=== PATIENT | female | born 1960 | race Caucasian/White ===

== ENCOUNTER → 2020-12-28 14:28 | Outpatient (CLI) | payer OTHER, SELFPAY ==
[2020-12-28 11:16] VITALS: BMI 25.1
[2020-12-28 14:30] LABS: Bacteria 0 SEEN /hpf (None Seen); Mucous, Urine 0 SEEN /hpf (<or=2+); Red Blood Cells-Urine 0 SEEN /hpf (0-5); Squamous Epithelial Cells - UA 0 SEEN /hpf (5-10); White Blood Cells 0 SEEN /hpf (0-5)
[2020-12-28 14:37] LABS: Color, Urine Straw (Yellow); Glucose, Dipstick Normal (Normal); Ketone-Dipstick Negative (Negative); Leukocyte Esterase-Dipstick 500 /ul (Negative); Nitrite-Dipstick Negative (Negative); Occult Blood-Urine 25 /ul (Negative); Protein-Dipstick Negative (Negative); Urine Bilirubin Dipstick Negative (Negative); Urine Clarity Clear (Clear); Urine Urobilinogen Normal (Normal)
== END ==
PROVIDERS: Referring Provider Nurse Practitioner Family; Visit Provider Nurse Practitioner Family
DX: N39.0 Urinary tract infection, site not specified (principal)
CPT/HCPCS: 81001; 87086; 87088

== ENCOUNTER → 2021-10-10 | Outpatient (CLI) | payer OTHER, SELFPAY ==
--- NOTE | 2021-10-10 13:35 | BI_ITS ---
MAMMOGRAPHY - BILATERAL SCREENING REASON FOR EXAM: Female, 61 years old. Routine annual screening examination. PERTINENT HISTORY: Non-contributory. TECHNIQUE: Digital bilateral breast reuben (3D mammographic acquisition) in the CC and MLO projections. 2-D mediolateral oblique (MLO) and craniocaudad (CC) views of both breasts were obtained. CAD: Full Field Digital Mammography with Computer Added Detection was performed. COMPARISON: Comparison is made with prior study dated 12/10/2016. FINDINGS: Breast Composition: There are scattered areas of fibroglandular density. There are no dominant masses or suspicious calcifications. Stable mild asymmetry of breast tissue were mild degree of increased fibroglandular tissue is seen in the right retroareolar region. There has been no significant change since the prior study. BI/SCRN MAMM (CAD)W/REUBEN BILAT IMPRESSION: Stable bilateral screening mammogram. Yearly follow-up mammogram recommended. (A) ASSESSMENT CATEGORY: BIRADS Category 2: Benign. A letter regarding these results will be sent to the patient by the facility within 30 days. Approximately 10% of breast cancers are not detected by mammography. A normal mammogram should not delay biopsy of a clinically suspicious abnormality. [id number] Electronically Signed: Parviz Leiva MD at 15:45 EDT ,
== END | disposition home or self-care (01) ==
LOC: OPBI 13:33
PROVIDERS: PCP Registered Nurse; Referring Provider Registered Nurse; Visit Provider Registered Nurse
DX: Z12.31 Encounter for screening mammogram for malignant neoplasm of breast (principal)
CPT/HCPCS: 77063; 77067

== ENCOUNTER → 2023-07-09 | Outpatient (CLI) | payer OTHER, SELFPAY ==
[2023-07-09 10:38] LABS: Erythrocyte Sedimentation Rate 8 mm/hr (0-30)
[2023-07-12 14:08] LABS: Complement CH50 > 60 U/mL (>41); Thyroid Peroxidase AB 160 IU/mL (0-34)
[2023-07-13 13:08] LABS: Anti-Nuclear Antibody Test Negative (.)
== END | disposition home or self-care (01) ==
LOC: MTLAB 09:04
PROVIDERS: PCP Registered Nurse; Referring Provider Dermatology Pediatric Dermatology; Visit Provider Dermatology Pediatric Dermatology
DX: D89.89 Other specified disorders involving the immune mechanism, not elsewhere classified (principal); L24.9 Irritant contact dermatitis, unspecified cause
CPT/HCPCS: 36415; 85652; 86038; 86162; 86376

== ENCOUNTER → 2024-08-07 | Outpatient (CLI) | payer MEDICARE, OTHER, SELFPAY ==
--- NOTE | 2024-08-07 09:50 | BI_ITS ---
PROCEDURE: SCRN MAMM (CAD)W/REUBEN BILAT REASON FOR EXAM: F, Age 64 y/o, no family history. Annual follow-up. TECHNIQUE: Bilateral screening digital breast tomosynthesis with 2D and 3D images. Computer aided detection. COMPARISON: Prior exam(s) dating back to October 10, 2021.. FINDINGS: There are scattered areas of fibroglandular density. Stable small benign- appearing bilateral axillary lymph nodes. Stable examination. No suspicious masses, areas of developing architectural distortion, or suspicious calcifications. BI/SCRN MAMM (CAD)W/REUBEN BILAT IMPRESSION: BI-RADS 2: BENIGN. RECOMMEND ANNUAL MAMMOGRAPHIC SCREENING. Follow-up code: Routine Follow-up The patient will be notified of the results by letter. Reading Location: [id number]
== END | disposition home or self-care (01) ==
PROVIDERS: PCP Registered Nurse; Referring Provider Clinical Nurse Specialist Adult Health; Visit Provider Clinical Nurse Specialist Adult Health
DX: Z12.31 Encounter for screening mammogram for malignant neoplasm of breast (principal)
CPT/HCPCS: 77063; 77067

== ENCOUNTER 2025-03-22 18:25 | Emergency (ER) | payer MEDICARE, OTHER, SELFPAY ==
[2025-03-22 18:25] VITALS: BP 121/74; PULSE 59; RESP 14; TEMP 36.8; O2SAT 100; BMI 28.6
--- NOTE | 2025-03-22 18:42 | EDS_ITS ---
HPI History of Present Illness Chief Complaint: Upper Extremity Injury Detail of Chief Complaint: Right shoulder injury Informant: patient Narrative Narrative: Patient presents to the emergency department with a right shoulder injury. Theresa ent was texting her when she tripped on the sidewalk and fell. She tried to catch herself but landed on her right shoulder. Did not strike her head. No loss of consciousness. She is not anticoagulated. She is right-hand dominant. Having pain with range of motion. PFSH PFSH Medical History (Updated 03/22/25 @ 19:[address] Bonnie Adler, DO) Hypothyroid Home Medications ?Medication ?Instructions ?Recorded ?Last Taken ?Type hydrocodone-acetaminophen 5-325mg 1 tab PO Q4H PRN PRN Pain 2 days 03/22/25 Unknown Rx 5mg-325mg #15 TABLETS levothyroxine 25 mcg tablet 25 mcg PO DAILY 03/22/25 U nknown History Allergy/AdvReac Type Severity Reaction Status Date / Time latex Allergy Rash Verified 03/22/25 18:28 Family History Other Heart disease Surgical History H/O knee surgery Social History (Updated 03/22/25 @ 18:56 by Juana Sebastian) household members: spouse Smoking Status: Never smoker ROS ROS ED Review of Systems ROS Unobtainable: other Constitutional Constitutional ED: Reports lethargy; Denies chills, fever(s), sweats or weight loss Eyes Eyes: Denies blurry vision, change in vision or diplopia ENT ENT ED: Denies rhinorrhea or sore throat Cardiovascular Cardiovascular: Denies chest pain, orthopnea or racing heartbeat Respiratory/Chest Respiratory/Chest: Denies cough, dyspnea, dyspnea on exertion, orthopnea or sputum Gastrointestinal Gastrointestinal: Denies abdominal pain, diarrhea, nausea or vomiting Genitourinary Genitourinary ED: Denies dysuria, hematuria or urinary frequency Musculoskeletal Musculoskeletal: Reports other Details: Right shoulder pain/injury ; Denies arthralgias, back pain, myalgias or neck pain Integumentary Denies abscess, Abrasions or rash Neurologic Neurologic: Denies headache(s) or weakness Psychiatric Psychiatric: Denies anxiety, depression or suicidal thoughts Endocrine Endocrinology: Denies polydipsia, polyphagia or polyuria Hematologic/Lymphatic Hematologic/Lymphatic: Denies easy bleeding, easy bruising or lymphadenopathy Allergic/Immunologic Allergic/Immunologic ED: Denies mouth swelling, tongue swelling or urticaria EXAM Physical Exam Const Vital Signs: 03/22/25 18:25 Temperature 98.2 F Temperature Source Temporal Pulse Rate 59 L Respiratory Rate 14 Blood Pressure 121/74 H Blood Pressure Mean 89 Pulse Ox 100 Oxygen Delivery Method Room Air Positive well nourished and well developed General Appearance ED: well developed and NAD HEENT Reports TM's clear and moist mucous membranes normocephalic and atraumatic; Negative for trauma or tenderness Tympanic Membrane ED: Yes TM's clear Eyes PERRL and EOMs intact bilaterally General Eye ED: Negative for pale conjunctiva or scleral icterus Neck no lymphadenopathy, supple and no JVD General: Negative for tenderness Chest Wall inspection of chest normal and palpation of chest normal Chest: Negative for tenderness Resp normal respiratory effort and clear to auscultation bilaterally Effort and Inspection: Negative for respiratory distress or pain with movement Auscultation: Negative for rhonchi, wheezes or diminished lung sounds Cardio regular rate, regular rhythm, S1 normal heart sound, S2 normal heart sound and no murmurs Peripheral Pulses: pulses 2+ throughout GI normal to inspection, nondistended, normoactive bowel sounds, soft to palpation, non-tender, non-distended and no masses Back/Spine no CVA tenderness and no thoracic nor lumbar tenderness Extremity Extremity Narrative: Right shoulder-patient holds the arm abducted. Do not palpate an obvious sulcus sign although she has a large sweatshirt on. She is neurovascular intact distally. General Extremety ED: Negative for edema General Extremity: Negative for edema Neuro oriented x3, CN's II-XII intact bilaterally, no sensory deficits noted and gait normal Sensorium / Orientation: awake, alert, oriented to person, oriented to place and oriented to time Motor Exam: strength 5/5 throughout and strength abnormal Psych mental status grossly normal Skin no rashes or lesions noted and no wounds MDM MDM MDM Narrative Medical decision making narrative: Patient presents with injury to the right shoulder. X-rays obtained showed a proximal humerus fracture without evidence of dislocation. She did not want us to cut her sweatshirt off her clothing off. We did give her a sling. She was given a dose of Cecil for pain. Will refer to orthopedics for follow-up. Radiography Diagnostic Testin views of the right shoulder obtained interpreted by myself is fracture of the proximal humerus without evidence of dislocation. Discharge Plan Triage Chief Complaint: Upper Extremity Injury ED Provider: Bonnie Adler Dx/Rx/DC Orders Clinical Impression: Closed fracture of proximal end of right humerus Instructions: ED Fracture, Upper Extremity Prescriptions: New hydrocodone-acetaminophen 5-325 mg tablet 1 tab PO Q4H PRN PRN (Reason: Pain) 2 Days Qty: 15 0RF No Action levothyroxine 25 mcg tablet 25 mcg PO DAILY Primary Care Provider: Grace Ro NP Referrals: Ricki Gaston DO [Med Staff - Active Staff, Orthopedics] - 3-5 Days Grace Ro NP, [employer] [Primary Care Provider, Medical] Print Language: Amharic Disposition Disposition: Home, Self Care
--- NOTE | 2025-03-22 19:00 | RAD_ITS ---
PROCEDURE: SHOULDER MIN 2 VIEWS 03/22/2025 REASON FOR EXAM: FALL TECHNIQUE: Procedure Code: RADSH Modality: DX Procedure: SHOULDER MIN 2 VIEWS Laterality: FINDINGS: Impacted, displaced fracture of the right humeral head/neck. No evidence of dislocation. RAD/Shoulder min 2 Views IMPRESSION: Impacted, displaced humeral head/neck fracture. Reading Location: [id number]
--- OUTSIDE RECORDS SUMMARY | 2025-03-22 19:28 | XMS RPT_ITS | CCD ---
Author Organization [facility] Care Team Providers Care Waiter/Waitress Dining Car Name Role Phone Unavailable Primary Care Provider Unavailabl e Haagen LEAD FORMER.MADELINE, Grace Primary Care Provider Haagen LEAD FORMER.RESTOR[employer]ILES, Grace Primary Care Provider Haagen LEAD FORMER.REST[employer]ES, Grace Primary Care Provider HAAGEN, GRACE Primary Care Unavailable VETOVITZ, JULI Referring Unavailable HAAGEN, GRACE Primary Care Unavailable VETOVITZ, JULI Referring Unavailable HAAGEN, GRACE Primary Care Unavailable VETOVITZ, UJLI Referring Unavailable VETOVITZ, JULI Referring Unavailable HAAGEN, GRACE Primary Care Unavailable HAAGEN, GRACE Primary Care Unavailable PROVIDER, UNKNOWN Admitting Unavailable PROVIDER, UNKNOWN Attending Unavailable Haagen LEAD FORMER.MADELINE, Grace Primary Care Provider Haagen LEAD FORMER.REST[employer]IL[employer], Grace Primary Care Provider Suppan LEAD FORMER.Nadya CORREA Unavailable Chai Rico MD Unavailable [phone] BENDARAM, DIOR MELTON Attending Unavaila ble HAAGEN, GRACE Primary Care Unavailable BENDARAM, DIOR MELTON Referring Unavaila ble HAAGEN, GRCAE Primary Care Unavailable BENDARAM, DIOR MELTON Attending Unavaila ble HAYLEE WATSON Referring Unavailable HAAGEN, GRACE Primary Care Unavailable HAAGEN, GRACE Referring Unavailable HAAGEN, GRACE Primary Care Unavailable HAAGEN, GRACE Attending Unavailable HAAGEN, GRACE Primary Care Unavailable BENDARAM, DIOR MELTON Attending Unavaila ble HAAGEN, GRACE Primary Care Unavailable BENDARAM, DIOR MELTON Referring Unavaila ble HAAGEN, GRACE Primary Care Unavailable Nadya Mclean Referring Unavailable Nadya Mclean Attending Unavailable Grace Ro Primary Care Unavailable Jia PLASTIC CUTTER-C, Grace Primary Care Provider [phone] Nadya Mcdonald Attending Provider Nadya Mcdonald Referring Provider Allergies Allergy Classification Reported Allergen(s) Allergy Type Date of Onset Reaction(s) Facility (20 sources) Cortisone; Translations: [CORTISONE] Drug Allergy 09-25-2021 [facility] (7 sources) Influenza Virus Vaccines; Translations: [INFLUENZA VIRUS VACCINES] Drug Allergy 09-25-2021 [facility] (2 sources) Latex Allergy to substance 12-28-2020 Rash [facility] (20 sources) Influenza Virus Vaccines Drug Allergy 09-25-2021 [facility] (1 source) Latex Drug allergy (disorder) 12-28-2020 [facility] Repository Medications Current Medications Medication Drug Class(es) Dates Sig (Normalized) Sig (Original) acetaminophen 325 mg / HYDROcodone bitartrate 5 mg oral tablet (3 sources) Opioid Agonist Start: 06-10-2022 End: 06-17-2022 take 1 tablet by mouth every six hours as needed for pain HYDROcodone-acetamino phen (NORCO) 5-325 mg per tablet Indications: Primary osteoarthritis of first carpometacarpal joint of right hand Take 1 tablet by mouth every 6 hours as needed for pain for up to 7 days. 28 tablet 0 06/10/2022 06/17/2022 Active Comment on above: Take 1 tablet by monica th every 6 hours as needed for pain for up to 7 days. Ascorbic Acid (20 sources) Vitamin C take 1 tablet by mouth once daily ascorbic acid (VITAMIN C ORAL) Take 1 tablet by mouth once daily. Active take 1 tablet by mouth once tomasa y ascorbic acid (VITAMIN C ORAL) Take 1 tablet by mouth once daily. 0 Active ascorbic acid (V ITAMIN C ORAL) Take by mouth. 0 Active Comment on above: Take by mouth. Take 1 tablet by monica th once daily. ergocalciferol, vitamin D2, (VITAMIN D2 ORAL) (20 sources) take 1 tablet by mouth once daily ergocalciferol, vitamin D2, (VITAMIN D2 ORAL) Take 1 tablet by mouth once daily. Active take 1 tablet by mouth once tomasa y ergocalciferol, vitamin D2, (VITAMIN D2 ORAL) Take 1 tablet by mouth once daily. 0 Active ergocalciferol, vitamin D2, (VITAMIN D2 ORAL) Take by mouth. 0 Active Comment on above: Take by mouth. Take 1 tablet by monica th once daily. levothyroxine sodium 0.025 mg oral tablet (16 sources) l-Thyroxine Start: 4 End: 5 take 1 tablet by mouth once daily levothyroxine (SYNTHROID) 25 mcg tablet Indications: Myriam's thyroiditis Take 1 tablet by mouth once daily. 90 tablet 3 07/03/2024 Active Start: 08-31-2023 End: 11-09-2023 take 1 tablet by mouth once daily levothyroxine (SYNTHROID) 25 mcg tablet Indications: Myriam's thyroiditis Take 1 tablet by mouth once daily. 90 tablet 0 08/31/2023 11/09/2023 Discontinued Comment on above: Take 1 tablet by monica th once daily. MEDICATION, NON-DATABASE (20 sources) MEDICATION, NON- DATABASE Tumeric with herb Active MEDICATION, NON- DATABASE Tumeric with herb 0 Active Comment on above: Tumeric with herb MULTIVITAMIN ORAL (20 sources) take 1 tablet by mouth once daily MULTIVITAMIN ORAL Take 1 tablet by mouth once daily. Active take 1 tablet by mouth once tomasa y MULTIVITAMIN ORAL Take 1 tablet by mouth once daily. 0 Active MULTIVITAMIN ORA L Take by mouth. 0 Active Comment on above: Take by mouth. Take 1 tablet by monica th once daily. Zinc (20 sources) take 1 tablet by monica th once daily ZINC ORAL Take 1 tablet by mouth once daily. Active take 1 tablet by mouth once tomasa y ZINC ORAL Take 1 tablet by mouth once daily. 0 Active ZINC ORAL Take b y mouth. 0 Active Comment on above: Take by mouth. Take 1 tablet by monica th once daily. Completed/Discontinued Medications Medication Drug Class(es) Dates Sig (Normalized) Sig (Original) betamethasone 3 mg/ml / betamethasone acetate 3 mg/ml injectable suspension (1 source) Corticosteroid Start: 09-25-2021 End: 09-25-2021 betamethasone acetate-betamethason e sodium phosphate 3 mg injection (CELESTONE) Start: 09-25-2021 End: 09-25-2021 betamethasone acetate-betame thasone sodium phosphate 3 mg injection (CELESTONE) 10 ml lidocaine hydrochloride 10 mg/ml injection (1 source) Antiarrhythmic, Amide Local Anesthetic Start: 09-25-2021 End: 09-25-2021 lidocaine (PF) 10 mg/mL (1 %) 0.5 mL injection (XYLOCAINE) Start: 09-25-2021 End: 09-25-2021 lidocaine (PF) 10 mg/mL (1 % ) 0.5 mL injection (XYLOCAINE) nitrofurantoin, macrocrystals 25 mg / nitrofurantoin, monohydrate 75 mg oral capsule (2 sources) Nitrofuran Antibacterial Start: 12-28-2020 End: 01-02-2021 take 1 capsule by mouth twice daily at mealtime Nitrofurantoin Monohyd/M-Cryst (Macrobid) 100 mg capsule Discontinued 100 MG PO TWICE A DAY 10 December 28, 2020 11:40am January 02, 2021 12:01am must administer with a meal/food ondansetron 4 mg disintegrating oral tablet (2 sources) Serotonin-3 Receptor Antagonist Start: 08-22-2016 End: 12-28-2020 take 4 mg by mouth every eight hours as needed Ondansetron Discontinued 4 MG PO EVERY 8 HOURS NEEDED August 22, 2016 9:42am December 28, 2020 11:15am Problems Active Problems Problem Classification Problem Date Documented Date Episodic/Chronic Diseases of white blood cells (1 source) Leukopenia; Translations: [Decreased white blood cell count, unspecified] 08-08-2024 Chronic Disorders of lipid metabolism (2 sources) Mixed hyperlipidemia; Translations: [Mixed hyperlipidemia] Onset: 08-07-2024 07-18-2024 Chronic Osteoarthritis (20 sources) Osteoarthrosis of the carpometacarpal joint of the thumb; Translations: [Unilateral primary osteoarthritis of first carpometacarpal joint, right hand] Onset: 07-21-2022 Chronic Other connective tissue disease (4 sources) Pain in right thumb; Translations: [Pain in right finger(s)] Episodic Other screening for suspected conditions (not mental disorders or infectious disease) (7 sources) Patient encounter status; Translations: [Encounter for screening mammogram for malignant neoplasm of breast] Onset: 08-31-2023 Episodic Thyroid disorders (7 sources) Myriam thyroiditis; 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 thyroiditis] Onset: 06-22-2024 08-31-2023 Chronic Past or Other Problems Problem Classification Problem Date Documented Da te Episodic/Chronic Other bone disease and musculoskeletal deformities (14 sources) Osteopenia; Translations: [Other specified disorders of bone density and structure, multiple sites] Onset: 06-14-2023 06-14-2023 Episodic Other non-traumatic joint disorders (19 sources) Thumb joint stiff; Translations: [Stiffness of unspecified hand, not elsewhere classified] Onset: 07-21-2022 Episodic Other non-traumatic joint disorders (1 source) Stiffness of unspecified hand, not elsewhere classified; Translations: [Thumb joint stiffness] Onset: 07-21-2022 Episodic Results Test Name Value Interpretation Reference Range Facil ity Breast imaging reportOrdered By: Parviz Leiva on 08-07-2024 Study report [facility] Imaging Services [address] [place] [address] [id number] SCRN MAMM (CAD)W/LUIS FERNANDO BILAT MR#: [id number] Acct: [id number] Name: DEANNE SÁNCHEZ Rep #: [id number] : 1960 F 64 From: Alex Leiva MD PCP: MOISES Xiong Status: BELLA DELEON Study:SCRN MAMM (CAD)W/LUIS FERNANDO BILAT Date of Exa m: 08/07/24 Exam# [id number] Ordering Dr: Ger Mclean PROCEDURE: SCRN MAMM (CAD)W/LUIS FERNANDO BILAT REASON FOR EXAM: F, Age 64 y/o, no family history. Annual follow-up. TECHNIQUE: Bilateral screening digital breast tomosynthesis with 2D and 3D images. Computeraided detection. COMPARISON: Prior exam(s) dating back to October 10, 2021.. FINDINGS: There are scattered areas of fibroglandular density. Stable small benign-appearing bilateral axillary lymph nodes. Stable examination. No suspicious masses, areas of developing architectural distortion, or suspicious calcifications. BI/SCRN MAMM (CAD)W/LUIS FERNANDO BILAT IMPRESSION: BI-RADS 2: BENIGN. RECOMMEND ANNUAL MAMMOGRAPHIC SCREENING. Follow-up code: Routine Follow-up The patient will be notified of the results by letter. Reading Location: [id number] CC: ZEB Mclean; MOISES Ro ~ Photogrammetric Stereo Compiler: Signed [facility] CBC W Auto Differential pane l (Bld)on 08-07-2024 Basophils (Bld) [#/Vol] 0.03 10*3/uL Normal <0.11 [facility] Comment on above: Order Comment: Speci men Type: BLOOD SPECIMEN Ordering Facility: [facility] Address: [address] [place] [address] Performed By: #### 2 4331-1 #### [facility] CLIA [id number] [address] CLIA [id number] [address] [place] [address] [place] #### 03132-4 #### [facility] CLIA [id number] [address] [place] [address] [place] Basophils/100 WBC (Bld) 0.9 % Normal [facility] Comment on above: Order Comment: Speci men Type: BLOOD SPECIMEN Ordering Facility: [facility] Address: [address] [place] [address] Performed By: #### 2 4331-1 #### [facility] CLIA [id number] [address] [place] [address] [place] [facility] CLIA [id number] [address] [place] [address] [place] #### 39676-0 #### [facility] CLIA [id number] [address] [place] [address] [place] Differential cell count method Nom (Bld) Auto Normal [facility] Comment on above: Order Comment: Speci men Type: BLOOD SPECIMEN Ordering Facility: [facility] Address: [address] [place] [address] Performed By: #### 2 4331-1 #### [facility] CLIA [id number] 1 [place] [address] [place] [facility] CLIA [id number] [address] [place] [address] [place] #### 92884-9 #### [facility] CLIA [id number] [address] [place] [address] [place] Eosinophils (Bld) [#/Vol] 0.10 10*3/uL Normal <0.46 [facility] Comment on above: Order Comment: Speci men Type: BLOOD SPECIMEN Ordering Facility: [facility] Address: [address] [place] [address] Performed By: #### 2 4331-1 #### [facility] CLIA [id number] [address] [place] [address] [place] [facility] CLIA [id number] [address] [place] [address] [place] #### 75976-8 #### [facility] CLIA [id number] [address] [place] [address] [place] Eosinophils/100 WBC (Bld) 3.1 % Normal [facility] Comment on above: Order Comment: Speci men Type: BLOOD SPECIMEN Ordering Facility: [facility] Address: [address] [place] [address] Performed By: #### 2 4331-1 #### [facility] CLIA [id number] [address] [place] [address] [place] [facility] CLIA [id number] [address] [place] [address] [place] #### 31324-3 #### [facility] CLIA [id number] [address] [place] [address] [place] Erythrocyte distribution width (RBC) [Ratio] 12.8 % Normal 11.5-15.0 [facility] Comment on above: Order Comment: Speci men Type: BLOOD SPECIMEN Ordering Facility: [facility] Address: [address] [place] [address] Performed By: #### 2 4331-1 #### [facility] CLIA [id number] [address] STATES OF [facility] CLIA [id number] [address] [place] [address] [place] #### 14035-7 #### [facility] CLIA [id number] [address] [place] [address] [place] Hematocrit (Bld) [Volume fraction] 38.2 % Normal 36.0-46.0 [facility] Comment on above: Order Comment: Speci men Type: BLOOD SPECIMEN Ordering Facility: [facility] Address: [address] [place] [address] Performed By: #### 2 4331-1 #### [facility] CLIA [id number] [address] OF [facility] CLIA [id number] [address] [place] [address] [place] #### 88344-6 #### [facility] CLIA [id number] [address] [place] [address] [place] Hemoglobin (Bld) [Mass/Vol] 12.6 g/dL Normal 11.5-15.5 [facility] Comment on above: Order Comment: Speci men Type: BLOOD SPECIMEN Ordering Facility: [facility] Address: [address] [place] [address] Performed By: #### 2 4331-1 #### [facility] CLIA [id number] [address] STATES [place] [facility] CLIA [id number] [address] [place] [address] [place] #### 96951-2 #### [facility] CLIA [id number] [address] [place] [address] [place] Immature granulocytes (Bld) [#/Vol] 10*3/uL Normal <0.10 [facility] Comment on above: Order Comment: Speci men Type: BLOOD SPECIMEN Ordering Facility: [facility] Address: [address] [place] [address] Performed By: #### 2 4331-1 #### [facility] CLIA [id number] [address] STATES [place] [facility] CLIA [id number] [address] [place] [address] [place] #### 07347-5 #### [facility] CLIA [id number] [address] [place] [address] [place] Immature granulocytes/100 WBC (Bld) 0.0 % Normal [facility] Comment on above: Order Comment: Speci men Type: BLOOD SPECIMEN Ordering Facility: [facility] Address: [address] [place] [address] Performed By: #### 2 4331-1 #### [facility] CLIA [id number] 1 [place] [address] [place] [facility] CLIA [id number] [address] [place] [address] [place] #### 46308-9 #### [facility] CLIA [id number] [address] [place] [address] [place] Lymphocytes (Bld) [#/Vol] 1.02 10*3/uL Normal 1.00-4.00 [facility] Comment on above: Order Comment: Speci men Type: BLOOD SPECIMEN Ordering Facility: [facility] Address: [address] [place] [address] Performed By: #### 2 4331-1 #### [facility] CLIA [id number] [address] STATES OF [facility] CLIA [id number] [address] [place] [address] [place] #### 17035-5 #### [facility] CLIA [id number] [address] [place] [address] [place] Lymphocytes/100 WBC (Bld) 32.1 % Normal [facility] Comment on above: Order Comment: Speci men Type: BLOOD SPECIMEN Ordering Facility: [facility] Address: [address] [place] [address] Performed By: #### 2 4331-1 #### [facility] CLIA [id number] [address] STATES OF [facility] CLIA [id number] [address] [place] [address] [place] #### 44261-1 #### [facility] CLIA [id number] [address] [place] [address] [place] MCH (RBC) [Entitic mass] 29.3 pg Normal 26.0-34.0 [facility] Comment on above: Order Comment: Speci men Type: BLOOD SPECIMEN Ordering Facility: [facility] Address: [address] [place] [address] Performed By: #### 2 4331-1 #### [facility] CLIA [id number] [address] STATES [place] [facility] CLIA [id number] [address] [place] [address] [place] #### 74220-3 #### [facility] CLIA [id number] [address] [place] MCHC (RBC) [Mass/Vol] 33.0 g/dL Normal 30.5-36.0 [facility] Comment on above: Order Comment: Speci men Type: BLOOD SPECIMEN Ordering Facility: [facility] Address: [address] [place] [address] Performed By: #### 2 4331-1 #### [facility] CLIA [id number] [address] STATES OF [facility] CLIA [id number] [address] [place] [address] [place] #### 52056-8 #### [facility] CLIA [id number] [address] [place] [address] [place] MCV (RBC) [Entitic vol] 88.8 fL Normal 80.0-100.0 [facility] Comment on above: Order Comment: Speci men Type: BLOOD SPECIMEN Ordering Facility: [facility] Address: [address] [place] [address] Performed By: #### 2 4331-1 #### [facility] CLIA [id number] [address] STATES [facility] [id number] [address] [place] [address] [place] #### 28234-1 #### [facility] CLIA [id number] [address] [place] [address] [place] Monocytes (Bld) [#/Vol] 0.25 10*3/uL Normal <0.87 [facility] Comment on above: Order Comment: Speci men Type: BLOOD SPECIMEN Ordering Facility: [facility] Address: [address] [place] [address] Performed By: #### 2 4331-1 #### [facility] CLIA [id number] [address] STATES OF [facility] CLIA [id number] [address] [place] [address] [place] #### 47105-9 #### [facility] CLIA [id number] [address] [place] [address] [place] Monocytes/100 WBC (Bld) 7.9 % Normal [facility] Comment on above: Order Comment: Speci men Type: BLOOD SPECIMEN Ordering Facility: [facility] Address: [address] [place] [address] Performed By: #### 2 4331-1 #### [facility] CLIA [id number] 1 [place] [address] [place] [facility] CLIA [id number] [address] [place] [address] [place] #### 94536-1 #### [facility] CLIA [id number] [address] [place] [address] [place] Neutrophils (Bld) [#/Vol] 1.78 10*3/uL Normal 1.45-7.50 [facility] Comment on above: Order Comment: Speci men Type: BLOOD SPECIMEN Ordering Facility: [facility] Address: [address] [place] [address] Performed By: #### 2 4331-1 #### [facility] CLIA [id number] [address] [place] [address] [place] [facility] CLIA [id number] [address] [place] [address] [place] #### 23343-0 #### [facility] CLIA [id number] [address] [place] [address] [place] Neutrophils/100 WBC (Bld) 56.0 % Normal [facility] Comment on above: Order Comment: Speci men Type: BLOOD SPECIMEN Ordering Facility: [facility] Address: [address] [place] [address] Performed By: #### 2 4331-1 #### [facility] CLIA [id number] [address] CLIA [id number] [address] [place] [address] [place] #### 88513-5 #### [facility] CLIA [id number] [address] [place] [address] [place] Nucleated RBC (Bld) [#/Vol] 10*3/uL Normal <0.01 [facility] Comment on above: Order Comment: Speci men Type: BLOOD SPECIMEN Ordering Facility: [facility] Address: [address] [place] [address] Performed By: #### 2 4331-1 #### [facility] CLIA [id number] [address] OF [facility] CLIA [id number] [address] [place] [address] [place] #### 12320-8 #### [facility] CLIA [id number] [address] [place] [address] [place] Nucleated RBC/100 WBC (Bld) [Ratio] 0.0 /100 WBC Normal [facility] Comment on above: Order Comment: Speci men Type: BLOOD SPECIMEN Ordering Facility: [facility] Address: [address] [place] [address] Performed By: #### 2 4331-1 #### [facility] CLIA [id number] [address] CLIA [id number] [address] [place] [address] [place] #### 77455-0 #### [facility] CLIA [id number] [address] [place] [address] [place] Platelet mean volume (Bld) [Entitic vol] 10.2 fL Normal 9.0-12.7 [facility] Comment on above: Order Comment: Speci men Type: BLOOD SPECIMEN Ordering Facility: [facility] Address: [address] [place] [address] Performed By: #### 2 4331-1 #### [facility] CLIA [id number] [address] OF [facility] CLIA [id number] [address] [place] [address] [place] #### 53690-0 #### [facility] CLIA [id number] [address] [place] [address] [place] Platelets (Bld) [#/Vol] 224 10*3/uL Normal 150-400 [facility] Comment on above: Order Comment: Speci men Type: BLOOD SPECIMEN Ordering Facility: [facility] Address: [address] [place] [address] Performed By: #### 2 4331-1 #### [facility] CLIA [id number] [address] OF [facility] CLIA [id number] [address] [place] [address] [place] #### 03985-3 #### [facility] CLIA [id number] [address] [place] [address] [place] RBC (Bld) [#/Vol] 4.30 10*6/uL Normal 3.90-5.20 [place] Comment on above: Order Comment: Speci men Type: BLOOD SPECIMEN Ordering Facility: [facility] Address: [address] [place] [address] Performed By: #### 2 4331-1 #### [facility] CLIA [id number] [address] [place] [address] [place] [facility] CLIA [id number] [address] [place] [address] [place] #### 08619-6 #### [facility] CLIA [id number] [address] [place] [address] [place] WBC (Bld) [#/Vol] 3.18 10*3/uL Low 3.70-11.00 [place] Comment on above: Order Comment: Speci men Type: BLOOD SPECIMEN Ordering Facility: [facility] Address: [address] [place] [address] Performed By: #### 2 4331-1 #### [facility] CLIA [id number] [address] [place] [address] [place] [facility] CLIA [id number] [address] [place] [address] [place] #### 78551-1 #### [facility] CLIA [id number] [address] [place] [address] [place] Comprehensive metabolic 2000 panelon 08-07-2024 Albumin [Mass/Vol] 4.0 g/dL Normal 3.9-4.9 [facility] Comment on above: Order Comment: Speci men Type: BLOOD SPECIMEN Ordering Facility: [facility] Address: [address] [place] [address] Performed By: #### 2 4331-1 #### [facility] CLIA [id number] [address] STATES OF [facility] CLIA [id number] [address] [place] [address] [place] #### 37922-1 #### [facility] CLIA [id number] [address] [place] [address] [place] ALP [Catalytic activity/Vol] 83 U/L Normal 34-123 [facility] Comment on above: Order Comment: Speci men Type: BLOOD SPECIMEN Ordering Facility: [facility] Address: [address] [place] [address] Performed By: #### 2 4331-1 #### [facility] CLIA [id number] [address] STATES OF [facility] CLIA [id number] [address] [place] [address] [place] #### 13351-1 #### [facility] CLIA [id number] 1 [place] [address] [place] ALT [Catalytic activity/Vol] 10 U/L Normal 7-38 [facility] Comment on above: Order Comment: Speci men Type: BLOOD SPECIMEN Ordering Facility: [facility] Address: [address] [place] [address] Performed By: #### 2 4331-1 #### [facility] CLIA [id number] 1 [place] [address] [place] [facility] CLIA [id number] [address] [place] [address] [place] #### 88805-1 #### [facility] CLIA [id number] [address] [place] [address] [place] Anion gap [Moles/Vol] 11 mmol/L Normal 8-15 [facility] Comment on above: Order Comment: Speci men Type: BLOOD SPECIMEN Ordering Facility: [facility] Address: [facility] [place] [address] Performed By: #### 2 4331-1 #### [facility] CLIA [id number] 1 [place] [address] [place] [facility] CLIA [id number] [address] [place] [address] [place] #### 27753-1 #### [facility] CLIA [id number] [address] [place] [address] [place] AST [Catalytic activity/Vol] 16 U/L Normal 13-35 [facility] Comment on above: Order Comment: Speci men Type: BLOOD SPECIMEN Ordering Facility: [facility] Address: [address] [place] [address] Performed By: #### 2 4331-1 #### [facility] CLIA [id number] [address] STATES OF [facility] CLIA [id number] [address] [place] [address] [place] #### 88901-8 #### [facility] CLIA [id number] [address] [place] [address] [place] Bilirubin [Mass/Vol] 0.4 mg/dL Normal 0.2-1.3 [facility] Comment on above: Order Comment: Speci men Type: BLOOD SPECIMEN Ordering Facility: [facility] Address: [address] [place] [address] Performed By: #### 2 4331-1 #### [facility] CLIA [id number] [address] CLIA [id number] [address] [place] [address] [place] #### 14750-2 #### [facility] CLIA [id number] [address] [place] [address] [place] Calcium [Mass/Vol] 9.3 mg/dL Normal 8.5-10.2 [facility] Comment on above: Order Comment: Speci men Type: BLOOD SPECIMEN Ordering Facility: [facility] Address: [address] [place] [address] Performed By: #### 2 4331-1 #### [facility] CLIA [id number] [address] [place] [facility] CLIA [id number] [address] [place] #### 63538-6 #### [facility] CLIA [id number] [address] [place] [address] [place] Chloride [Moles/Vol] 102 mmol/L Normal 98-107 [facility] Comment on above: Order Comment: Speci men Type: BLOOD SPECIMEN Ordering Facility: [facility] Address: [facility] [place] [address] Performed By: #### 2 4331-1 #### [facility] CLIA [id number] [address] OF [facility] CLIA [id number] [address] [place] [address] [place] #### 72218-2 #### [facility] CLIA [id number] [address] [place] [address] [place] CO2 [Moles/Vol] 26 mmol/L Normal 22-30 [facility] Comment on above: Order Comment: Speci men Type: BLOOD SPECIMEN Ordering Facility: [facility] Address: [address] [place] [address] Performed By: #### 2 4331-1 #### [facility] CLIA [id number] [address] STATES OF [facility] CLIA [id number] [address] [place] [address] [place] #### 20841-6 #### [facility] CLIA [id number] [address] [place] [address] [place] Creatinine [Mass/Vol] 0.69 mg/dL Normal 0.58-0.96 [facility] Comment on above: Order Comment: Speci men Type: BLOOD SPECIMEN Ordering Facility: [facility] Address: [address] [place] [address] Performed By: #### 2 4331-1 #### [facility] CLIA [id number] [address] CLIA [id number] [address] [place] [address] [place] #### 16070-2 #### [facility] CLIA [id number] [address] [place] [address] Creatinine and Glomerular filtration rate.predicted panel (S/P/Bld) 96 mL/min/1.73m??? Normal >=60 [facility] Comment on above: Order Comment: Malcolm cordero Type: BLOOD SPECIMEN Ordering Facility: [facility] Address: [address] [place] [address] Result Comment: Esthela mated Glomerular Filtration Rate (eGFR) is calculated using the 2020 CKD-EPI creatinine equation. This equation utilizes serum creatinine, sex, and age as parameters. The creatinine assay has traceable calibration to isotope dilution-mass spectrometry. Refer to KDIGO guidelines for clinical interpretation. In patients with unstable renal function, e.g. those with acute kidney injury, the eGFR may not accurately reflect actual GFR. Performed By: #### 2 4331-1 #### [facility] CLIA [id number] [address] CLIA [id number] [address] [place] [address] [place] #### 89451-6 #### [facility] CLIA [id number] [address] [place] [address] [place] Glucose [Mass/Vol] 92 mg/dL Normal 74-99 [facility] Comment on above: Order Comment: Malcolm cordero Type: BLOOD SPECIMEN Ordering Facility: [facility] Address: [address] [place] [address] Result Comment: The [place] Diabetes Association (ADA) provides guidance for cutoff values for fasting glucose and random glucose. The ADA defines fasting as no caloric intake for at least 8 hours. Fasting plasma glucose results between 100 to 125 mg/dL indicate increased risk for diabetes (prediabetes). Fasting plasma glucose results greater than or equal to 126 mg/dL meet the criteria for diagnosis of diabetes. In the absence of unequivocal hyperglycemia, results should be confirmed by repeat testing. In a patient with classic symptoms of hyperglycemia or hyperglycemic crisis, random plasma glucose results greater than or equal to 200 mg/dL meet the criteria for diagnosis of diabetes. Reference: Standards of Medical Care in Diabetes 2016, [place] Diabetes Association. Diabetes Care. 2016.39(Suppl 1). Performed By: #### 2 4331-1 #### [facility] CLIA [id number] [address] CLIA [id number] [address] [place] [address] [place] #### 55782-1 #### [facility] CLIA [id number] [address] [place] [address] [place] Potassium [Moles/Vol] 4.6 mmol/L Normal 3.7-5.1 [facility] Comment on above: Order Comment: Speci men Type: BLOOD SPECIMEN Ordering Facility: [facility] Address: [address] [place] [address] Performed By: #### 2 4331-1 #### [facility] CLIA [id number] [address] CLIA [id number] [address] [place] [address] [place] #### 46502-2 #### [facility] CLIA [id number] [address] [place] [address] [place] Protein [Mass/Vol] 6.8 g/dL Normal 6.3-8.0 [facility] Comment on above: Order Comment: Speci men Type: BLOOD SPECIMEN Ordering Facility: [facility] Address: [address] [place] [address] Performed By: #### 2 4331-1 #### [facility] CLIA [id number] 1 [place] [address] [place] [facility] CLIA [id number] [address] [place] [address] [place] #### 52446-8 #### [facility] CLIA [id number] [address] [place] [address] [place] Sodium [Moles/Vol] 139 mmol/L Normal 136-144 [facility] Comment on above: Order Comment: Speci men Type: BLOOD SPECIMEN Ordering Facility: [facility] Address: [address] [place] [address] Performed By: #### 2 4331-1 #### [facility] CLIA [id number] 1 [place] [address] [place] [facility] CLIA [id number] [address] [place] [address] [place] #### 49158-6 #### [facility] CLIA [id number] [address] [place] [address] [place] Urea nitrogen [Mass/Vol] 16 mg/dL Normal 7-21 [facility] Comment on above: Order Comment: Speci men Type: BLOOD SPECIMEN Ordering Facility: [facility] Address: [address] [place] [address] Performed By: #### 2 4331-1 #### [facility] CLIA [id number] 1 [place] [address] [place] [facility] CLIA [id number] [address] [place] [address] [place] #### 71769-9 #### [facility] CLIA [id number] [address] [place] [address] [place] Lipid 1996 panelon 5 Cholesterol [Mass/Vol] 260 mg/dL High <200 [facility] Comment on above: Order Comment: Speci men Type: BLOOD SPECIMEN Ordering Facility: [facility] Address: [address] [place] [address] Result Comment: <200 mg/dL, Desirable 200-239 mg/dL, Borderline high >239 mg/dL, High Performed By: #### 2 4331-1 #### [facility] CLIA [id number] [address] CLIA [id number] [address] [place] [address] [place] #### 66835-9 #### [facility] CLIA [id number] [address] [place] [address] [place] Cholesterol in HDL [Mass/Vol] 98 mg/dL Normal >39 [facility] Comment on above: Order Comment: Malcolm men Type: BLOOD SPECIMEN Ordering Facility: [facility] Address: [address] [place] [address] Result Comment: 40-5 9 mg/dL, Acceptable >59 mg/dL, High: Negative risk factor for coronary heart disease <40 mg/dL, Low: Positive risk factor for coronary heart disease Performed By: #### 2 4331-1 #### [facility] CLIA [id number] 1 [place] [address] [place] [facility] CLIA [id number] [address] [place] [address] [place] #### 21742-8 #### [facility] CLIA [id number] [address] [place] [address] [place] Cholesterol in LDL [Mass/Vol] 146 mg/dL High <100 [facility] Comment on above: Order Comment: Speci men Type: BLOOD SPECIMEN Ordering Facility: [facility] Address: [address] [place] [address] Result Comment: <100 mg/dL, Optimal 100-129 mg/dL, Near optimal/above optimal 130-159 mg/dL, Borderline high 160-189 mg/dL, High >189 mg/dL, Very high Secondary prevention optimal LDL Cholesterol levels are recommended to be < 70 mg/dL Performed By: #### 2 4331-1 #### [facility] CLIA [id number] [address] CLIA [id number] [address] [place] [address] [place] #### 15489-3 #### [facility] CLIA [id number] [address] [place] [address] [place] Cholesterol in LDL/Cholesterol in HDL [Mass ratio] 1.49 {ratio} Normal <2.54 [facility] Comment on above: Order Comment: Speci men Type: BLOOD SPECIMEN Ordering Facility: [facility] Address: [address] [place] [address] Result Comment: Refe rence: 1. National Cholesterol Education Program ATP III Guideline At-A-Glance Quick Desk Reference: National Heart, Lung, and Blood [place]. National Institutes of Health. 2001: NIH Publication No. 01-3305. 2. An International Atherosclerosis Society position paper: global recommendations for the management of dyslipidemia: executive summary, Atherosclerosis. 2014: 232(2):410-413. Performed By: #### 2 4331-1 #### [facility] CLIA [id number] [address] CLIA [id number] [address] [place] [address] [place] #### 15388-4 #### [facility] CLIA [id number] [address] [place] [address] [place] Cholesterol in VLDL [Mass/Vol] 16 mg/dL Normal <30 [facility] Comment on above: Order Comment: Speci men Type: BLOOD SPECIMEN Ordering Facility[facility] Address: [address] [place] [address] Performed By: #### 2 4331-1 #### [facility] CLIA [id number] 1 [place] [address] [place] [facility] CLIA [id number] 1 [place] [address] [place] #### 22038-2 #### [facility] CLIA [id number] [address] [place] [address] [place] Cholesterol non HDL [Mass/Vol] 162 mg/dL High <130 [facility] Comment on above: Order Comment: Speci men Type: BLOOD SPECIMEN Ordering Facility[facility] Address: [address] [place] [address] Result Comment: <130 mg/dL, Optimal 130-159 mg/dL, Near optimal/above optimal 160-189 mg/dL, Borderline high 190-219 mg/dL, High >219 mg/dL, Very high Secondary prevention optimal non HDL Cholesterol levels are recommended to be <100 mg/dL Performed By: #### 2 4331-1 #### [facility] CLIA [id number] 1 [place] [address] [place] [facility] CLIA [id number] [address] [place] [address] [place] #### 93218-5 #### [facility] CLIA [id number] [address] [place] [address] [place] Cholesterol.total/C holesterol in HDL [Mass ratio] 2.65 {ratio} Normal <5.10 [facility] Comment on above: Order Comment: Speci men Type: BLOOD SPECIMEN Ordering Facility: [facility] Address: [address] [place] [address] Performed By: #### 2 4331-1 #### [facility] CLIA [id number] 1 [place] [address] [place] [facility] CLIA [id number] [address] [place] [address] [place] #### 22248-5 #### [facility] CLIA [id number] [address] [place] [address] [place] FASTING TIME 12 hrs Normal [facility] Comment on above: Order Comment: Speci men Type: BLOOD SPECIMEN Ordering Facility: [facility] Address: [address] [place] [address] Performed By: #### 2 4331-1 #### [facility] CLIA [id number] [address] STATES OF [facility] CLIA [id number] [address] [place] [address] [place] #### 92975-4 #### [facility] CLIA [id number] [address] [place] [address] [place] Triglyceride [Mass/Vol] 81 mg/dL Normal <150 [facility] Comment on above: Order Comment: Speci men Type: BLOOD SPECIMEN Ordering Facility: [facility] Address: [address] [place] [address] Result Comment: <150 mg/dL, Normal 150-199 mg/dL, Borderline high 200-499 mg/dL, High >499 mg/dL, Very high Performed By: #### 2 4331-1 #### [facility] CLIA [id number] [address] [place] [address] [place] [facility] CLIA [id number] [address] [place] [address] [place] #### 04380-7 #### [facility] CLIA [id number] [address] [place] [address] [place] SCRN MAMM (CAD)W/LUIS FERNANDO BILLili n 08-07-2024 SCRN MAMM (CAD)W/LUIS FERNANDO BILAT [facility] Imaging Services [address] [place] [address] SCRN MAMM (CAD)W/LUIS FERNANDO RIANA MR#: [id number] Acct: [id number] Name: DEANNE SÁNCHEZ Rep #: [id number] : 1960 F 64 From: Parviz kat MD PCP: MOISES Xiong Status: [facility] Study: SCRN MAMM (CAD)W/LUIS FERNANDO BILAT Date of Exam: 08/29 Exam# [id number] Ordering Dr: Nadya Mclean PROCEDURE: SCRN MAMM (CAD)W/LUIS FERNANDO BILAT REASON FOR EXAM: F, Age 64 y/o, no family history. Annual follow-up. TECHNIQUE: Bilateral screening digital breast tomosynthesis with 2D and 3D images. Computer aided detection. COMPARISON: Prior exam(s) dating back to October 10, 2021.. FINDINGS: There are scattered areas of fibroglandular density. Stable small benign-appearing bilateral axillary lymph nodes. Stable examination. No suspicious masses, areas of developing architectural distortion, or suspicious calcifications. BI/SCRN MAMM (CAD)W/LUIS FERNANDO BILAT IMPRESSION: BI-RADS 2: BENIGN. RECOMMEND ANNUAL MAMMOGRAPHIC SCREENING. Follow-up code: Routine Follow-up The patient will be notified of the results by letter. Reading Location: [id number] CC: ZEB Mclean; MOISES Ro Photogrammetric Stereo Compiler: Signed Ladi [facility] CNOVon 07-18-2024 CNOV Office Visit (FAMPWS ) DEANNE SÁNCHEZ ([id number]) 1960 F Date Time Provider Department 07/18/24 10:00 AM GRACE RO During your visit today, we recorded the following information about you: Pulse Respiration Blood pressure 54/minute 16/minute 138/90 Grace Ro APRN.[employer] 07/18/2024 4:47 PM Signed Deanne Sánchez is a 64 year old female here for a Medicare wellness visit. Medicare Health Risk Assessment General Health Very good Exercise: Minutes/Day 60 min Exercise: Days/Week 6 days Alcohol: Daily Use 2-4 times a month Alcohol: Drinks/Day 1 or 2 Alcohol: 6 or more drinks Never Feel off balance No Concerns: Teeth/Dentures No Concerns: Sexual function No Troubled by feelings None of the above Frequency: Eating healthy diet Nearly every day ADLs requiring help None of the above Safety precautions in home/vehicle Yes Smoke, vape, chews tobacco No Difficulty hearing No Difficulty seeing No Current Providers Follows with endocrinology for thyroid. Eye doctor. Medical/Family history review Reviewed and updated problem list, medical/surgical/famil y/social history, medications, and allergies. Opioid use review Opioid Medications (last 90 days) No data to display Anxiety/Depression screening PHQ-9 Score: 0 . NICOLAS-7 Score: 0 . Recommendation: no further intervention at this time Cognitive screening Mini Cog Score: 4 Cognitive screening reviewed and No further action needed (score 3-5). Functional Observation Was the patient's Timed Up AND Go test unsteady or >= 12 seconds? No Advance Care Planning Patient did not wish or was not able to name a surrogate decision maker or provide an advance care plan REVIEW OF SYSTEMS GENERAL: No weight loss, malaise or fevers/chills HEENT: Negative for frequent or significant headaches, No changes in hearing or vision. NECK: Negative for lumps, goiter, pain and significant neck swelling RESPIRATORY: Negative for cough, hemoptysis, wheezing, dyspnea or shortness of breath CARDIOVASCULAR: Negative for chest pain, leg swelling, orthopnea, or palpitations GI: No nausea, vomiting, or diarrhea/constipation. No hematochezia/melena. Takes a daily evening tums for heartburn w/ effect. : No history of dysuria, frequency or incontinence MUSCULOSKELETAL: left knee, right hip, left thumb acts up. SKIN: followed w/ dermatology. Areas are fading. ENDOCRINE: Negative for cold or heat intolerance, polyuria, polydipsia and goiter NEURO: No history of headaches, syncope, paralysis, seizures or tremors Measurements BP 138/90 Pulse (!) 54 Resp 16 SpO2 99% Vision Screening: Follows with optometry/ophthalmolog y Right: 20/20 Left: 20/ 20 Both: 20/20 PHYSICAL EXAM: General Appearance: Well appearing, alert, in no acute distress, well-hydrated, well nourished. Skin: Skin color, texture, turgor normal, no suspicious rashes or lesions. Head: Normocephalic, no masses, lesions, tenderness or abnormalities. Eyes: Anicteric sclera. Extraocular movements are intact. Lungs: Lungs clear to auscultation. No wheezing, rhonchi, rales. Heart: RRR without murmur, gallop, or rubs. No ectopy. Neurologic: Gait normal. Assessment/Plan Welcome to Medicare preventive visit (Z00.00) - Counseled on healthy diet and regular exercise - Fall avoidance information provided - Personalized prevention plan provided Grace Ro APRN.CNP 07/18/2024 10:42 AM Addendum We can fax order over to mammogram. Get fasting labwork. Recheck in 1 year. Screening schedule The following prevention plan is recommended: Depression Screening Never done Anxiety Screening Never done Shingrix Vaccine(1 of 2) Never done Pneumococcal Vaccine: 50+(1 of 1 - PCV) Never done Mammogram Screening due on 10/10/2022 Influenza Vaccine(1) due on 02/06/2024 Covid-19 Vaccine( - season) Never done Advance Directive Discussion Never done Colorectal Cancer Screening due on 10/15/2024 WHAT YOU CAN DO TO PREVENT FALLS Many falls can be prevented. By making some changes, you can lower your chances of falling. Four things YOU can do to prevent falls for you* and your caregiver 1. Begin a regular exercise program Exercise is one of the most important ways to lower your chances of falling. It makes you stronger and helps you feel better. Exercises that improve balance and coordination (like Harry Chi) are the most helpful. Lack of exercise leads to weakness and increases your chances of falling. Ask your doctor or health care provider about the best type of exercise program for you. 2. Have your health care provider review your medicines Have your doctor or pharmacist review all the medicines you take, even feen-kdl-epchbde medicines. As you get older, the way medicines work in your body can change. Some medicines, or combinations of medicines, (more content not included)... Normal [facility] CNOVon 07-03-2024 CNOV Office Visit (ENWSTR ) DEANNE SÁNCHEZ ([id number]) 1960 F Date Time Provider Department 07/03/24 11:40 AM DIOR MONTOYA ENWSGISELLE During your visit today, we recorded the following information about you: Temperature Pulse Blood pressure Weight 96.2 degrees 68/minute 136/72 82.3 kg Dior Montoya MD 07/05/2024 7:02 PM Signed [facility] Follow up note CONSULTED BY: Haylee Watson APRN. [employer] My final recommendations will be communicated back to the requesting provider by way of shared Medical record or a letter via [place] mail History of present illness: Deanne Sánchez is a 63 year old female here to follow up of hypothyroidism. Initial visit on 08/31/2023 She was seen by chief design branch for non-itching lesions on skin (looks like scalds), for the last year, and antibodies were checked for diagnoses of Cali's syndrome, which revealed high titers of TPO Thyroid labs were checked and due to symptoms, she was started on Levothyroxine 25 mcg daily, which she has been taking since October 2023. Labs done post initiation of medication are within normal. She denied any hypo or hyperthyroid symptoms today Family history: hypothyroidism in mother, one maternal cousin has hypothyroidism REVIEW OF SYSTEMS: As per HPI ALLERGIES: ALLERGIES Allergen Reactions Cortisone Hives States it turns her legs purple. Influenza Virus Vac* Hives States it turns her legs purple MEDICATIONS: Current Outpatient Medications on File Prior to Visit Medication Sig MULTIVITAMIN ORAL Take 1 tablet by mouth once daily. ergocalciferol, vitamin D2, (VITAMIN D2 ORAL) Take 1 tablet by mouth once daily. ascorbic acid (VITAMIN C ORAL) Take 1 tablet by mouth once daily. ZINC ORAL Take 1 tablet by mouth once daily. MEDICATION, NON-DATABASE Tumeric with herb (Patient not taking: Reported on 08/31/2023) No current facility-administered medications on file prior to visit. 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 - Tim Lemons PAST SURGICAL HISTORY: PAST SURGICAL HISTORY Procedure Laterality Date EXTRACTION ERUPTED TOOTH/EXR KNEE SURGERY HX Left meniscus THUMB RT Right 06/2021 FAMILY HISTORY: FAMILY HISTORY Problem Relation Age of Onset other (heart disease) Mother Hypothyroidism Mother other (type 2 diabetes) Mother cured herself Prostate Cancer Father other (back surgeries) Sister Cataract Sister other (knee surgery) Sister Ischemic Heart Disease Brother bypass other (kidney cancer) Brother Obesity Brother No Known Problems Brother other (heart disease) Maternal Grandmother other (heart disease) Maternal Grandfather Cancer Paternal Grandmother mid 50's. SOCIAL HISTORY: Social History Tobacco Use Smoking status: Never Smokeless tobacco: Never Vaping Use Vaping status: Never Used Substance Use Topics Alcohol use: Yes Alcohol/week: 1.0 standard drink of alcohol Types: 1 Glasses of wine per week Comment: occasional glass of wine Drug use: Never PHYSICAL EXAM: BP 136/72 (BP Site: Right Arm, BP Position: Sitting, BP Cuff Size: Regular Adult) Pulse 68 Temp (!) 35.7 ?C (96.2 ?F) (Temporal Artery) Wt 82.3 kg (181 lb 6.4 oz) SpO2 99% BMI 26.79 kg/m? Last 3 Encounter Wt Readings: Date: Wt: 08/31/2023 85.8 kg (189 lb 3.2 oz) 05/04/2023 84.8 kg (187 lb) 05/27/2022 81.6 kg (180 lb) General: Alert and oriented x3, no acute distress Eyes: Anicteric sclera. Extraocular movements are intact. Neck: supple, no cervical lymphadenopathy Thyroid: normal size, normal texture, no palpable nodules Lungs: Breathing unlabored on room air Heart regular rate and rhythm Musculoskeletal: Muscular strength intact, No joint swelling, deformity, or tenderness Neuro: Gait normal. 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 Normal [facility] T4 Free SerPl-mCncon 025 Free T4 [Mass/Vol] 1.1 ng/dL Normal 0.9-1.7 [facility] Comment on above: Order Comment: Speci men Type: BLOOD SPECIMEN Ordering Facility: [facility] Address: [address] [place] [address] Performed By: #### 2 4331-1 #### [facility] CLIA [id number] [address] OF [facility] CLIA [id number] [address] [place] [address] [place] #### 61816-8 #### [facility] CLIA [id number] [address] [place] [address] OF [place] TSH SerPl-aCncon 06-22-2024 TSH Qn 2.250 m[IU]/L Normal 0.270-4.200 [facility] Comment on above: Order Comment: Speci men Type: BLOOD SPECIMEN Ordering Facility: [facility] Address: [address] [place] [address] Performed By: #### 2 4331-1 #### [employer] [facility] CLIA [id number] [address] [place] [facility] CLIA [id number] [address] [place] [address] OF [place] #### [id number] #### [facility] CLIA [id number] [address] OF [place] CNOVon 03-02-2024 CNOV Office Visit (ENWSTR ) DEANNE SÁNCHEZ ([id number]) 1960 F Date Time Provider Department 03/02/24 9:40 AM DIOR MONTOYA ENWSTR During your visit today, we recorded the following information about you: Pulse Respiration Weight Height 56/minute 19/minute 83 kg 1.753 m Dior Montoya MD 03/02/2024 12:54 PM Addendum [facility] Follow up note CONSULTED BY: Haylee Watson APRN. [employer] My final recommendations will be communicated back to the requesting provider by way of shared Medical record or a letter via [place] mail History of present illness: Deanne Sánchez is a 63 year old female here to establish care for hypothyroidism. She was seen by chief design branch for non-itching lesions on skin (looks like scalds), for the last year, and antibodies were checked for diagnoses of Cali's syndrome, which revealed high titers of TPO Thyroid labs were checked and due to symptoms, she was started on Levothyroxine 25 mcg daily, which she has been taking since October 2023. Labs done post initiation of medication are within normal. She denied any hypo or hyperthyroid symptoms today Family history: hypothyroidism in mother, one maternal cousin has hypothyroidism REVIEW OF SYSTEMS: As per HPI ALLERGIES: ALLERGIES Allergen Reactions Cortisone Hives States it turns her legs purple. Influenza Virus Vac* Hives States it turns her legs purple MEDICATIONS: Current Outpatient Medications on File Prior to Visit Medication Sig MULTIVITAMIN ORAL Take 1 tablet by mouth once daily. ergocalciferol, vitamin D2, (VITAMIN D2 ORAL) Take 1 tablet by mouth once daily. ascorbic acid (VITAMIN C ORAL) Take 1 tablet by mouth once daily. ZINC ORAL Take 1 tablet by mouth once daily. MEDICATION, NON-DATABASE Tumeric with herb (Patient not taking: Reported on 08/31/2023) No current facility-administered medications on file prior to visit. 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 - [facility] PAST SURGICAL HISTORY: PAST SURGICAL HISTORY Procedure Laterality Date EXTRACTION ERUPTED TOOTH/EXR KNEE SURGERY HX Left meniscus THUMB RT Right 06/2021 FAMILY HISTORY: FAMILY HISTORY Problem Relation Age of Onset other (heart disease) Mother Hypothyroidism Mother other (type 2 diabetes) Mother cured herself Prostate Cancer Father other (back surgeries) Sister Cataract Sister other (knee surgery) Sister Ischemic Heart Disease Brother bypass other (kidney cancer) Brother Obesity Brother No Known Problems Brother other (heart disease) Maternal Grandmother other (heart disease) Maternal Grandfather Cancer Paternal Grandmother mid 50's. SOCIAL HISTORY: Social History Tobacco Use Smoking status: Never Smokeless tobacco: Never Vaping Use Vaping status: Never Used Substance Use Topics Alcohol use: Yes Alcohol/week: 1.0 standard drink of alcohol Types: 1 Glasses of wine per week Comment: occasional glass of wine Drug use: Never PHYSICAL EXAM: Pulse (!) 56 Resp 19 Ht 175.3 cm (5' 9) Wt 83 kg (183 lb) SpO2 98% BMI 27.02 kg/m? Last 3 Encounter Wt Readings: Date: Wt: 08/31/2023 85.8 kg (189 lb 3.2 oz) 05/04/2023 84.8 kg (187 lb) 05/27/2022 81.6 kg (180 lb) General: Alert and oriented x3, no acute distress Eyes: Anicteric sclera. Pupils are equally round. Extraocular movements are intact. Neck supple, no cervical lymphadenopathy Thyroid: normal size, normal texture, no palpable nodules Lungs: Breathing unlabored, clear to auscultation. No wheezing, rhonchi, rales Heart regular rate and rhythm, no murmer Musculoskeletal: Muscular strength intact, No joint swelling, deformity, or tenderness Neuro: Gait normal. Sensation grossly intact. 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 Endocrinology and Metabolism [place] 330-2 (more content not included)... Normal [facility] T4 Free SerPl-mCncon 024 Free T4 [Mass/Vol] 1.2 ng/dL Normal 0.9-1.7 [facility] Comment on above: Order Comment: Speci gil Type: BLOOD SPECIMEN Ordering Facility: [facility] Address: [address] [place] [address] Performed By: #### 3 016-3, 7 #### [facility] CLIA [id number] [address] [place] [address] [place] TSH SerPl-aCncon 10-21-2023 TSH Qn 2.280 m[IU]/L Normal 0.270-4.200 [facility] Comment on above: Order Comment: Speci men Type: BLOOD SPECIMEN Ordering Facility: [facility] Address: [address] [place] [address] Performed By: #### 3 016-3, 7 #### [facility] CLIA [id number] [address] [place] [address] [place] CNOVon 08-31-2023 CNOV Office Visit (ENWSTR ) DEANNE SÁNCHEZ ([id number]) 1960 F Date Time Provider Department 08/31/23 1:00 PM DIOR MONTOYA During your visit today, we recorded the following information about you: Pulse Respiration Blood pressure Weight 63/minute 18/minute 128/86 85.8 kg Height 1.753 m Dior Montoya MD 08/31/2023 7:48 PM Signed [facility] Initial Clinic Visit Note CONSULTED BY: Haylee Watson APRN. [employer] My final recommendations will be communicated back to the requesting provider by way of shared Medical record or a letter via [place] mail Subjective: Deanne Sánchez is a 63 year old female here to establish care for hypothyroidism. She was seen by chief design branch for non-itching lesions on skin (looks like scalds), for the last year, and antibodies were checked for diagnoses of [place]'s syndrome, which revealed high titers of TPO General symptoms: Fatigue: for the last 2 years Weight change: gained about 20 lbs in 2 years Appetite change: always hungry Menstrual irregularities: menopause Change in bowel habits: constipation but now better for the last month Temperature intolerance: always cold Dry skin, dry eyes, thinning hair for one year- steroid cream did not work Nails breaking - for the last one year Family history: hypothyroidism in mother, one maternal cousin has hypothyroidism REVIEW OF SYSTEMS: As per HPI ALLERGIES: ALLERGIES Allergen Reactions Cortisone Hives States it turns her legs purple. Influenza Virus Vac* Hives States it turns her legs purple MEDICATIONS: Current Outpatient Medications on File Prior to Visit Medication Sig MULTIVITAMIN ORAL Take 1 tablet by mouth once daily. ergocalciferol, vitamin D2, (VITAMIN D2 ORAL) Take 1 tablet by mouth once daily. ascorbic acid (VITAMIN C ORAL) Take 1 tablet by mouth once daily. ZINC ORAL Take 1 tablet by mouth once daily. MEDICATION, NON-DATABASE Tumeric with herb (Patient not taking: Reported on 08/31/2023) No current facility-administered medications on file prior to visit. 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 - Tim Lemons PAST SURGICAL HISTORY: PAST SURGICAL HISTORY Procedure Laterality Date EXTRACTION ERUPTED TOOTH/EXR KNEE SURGERY HX Left meniscus THUMB RT Right 06/2021 FAMILY HISTORY: FAMILY HISTORY Problem Relation Age of Onset other (heart disease) Mother Hypothyroidism Mother other (type 2 diabetes) Mother cured herself Prostate Cancer Father other (back surgeries) Sister Cataract Sister other (knee surgery) Sister Ischemic Heart Disease Brother bypass other (kidney cancer) Brother Obesity Brother No Known Problems Brother other (heart disease) Maternal Grandmother other (heart disease) Maternal Grandfather Cancer Paternal Grandmother mid 50's. SOCIAL HISTORY: Social History Tobacco Use Smoking status: Never Smokeless tobacco: Never Vaping Use Vaping Use: Never used Substance Use Topics Alcohol use: Yes Alcohol/week: 1.0 standard drink of alcohol Types: 1 Glasses of wine per week Comment: occasional glass of wine Drug use: Never PHYSICAL EXAM: BP 128/86 (BP Site: Right Arm, BP Position: Sitting, BP Cuff Size: Regular Adult) Pulse 63 Resp 18 Ht 175.3 cm (5' 9) Wt 85.8 kg (189 lb 3.2 oz) SpO2 97% BMI 27.94 kg/m? Last 3 Encounter Wt Readings: Date: Wt: 08/31/2023 85.8 kg (189 lb 3.2 oz) 05/04/2023 84.8 kg (187 lb) 05/27/2022 81.6 kg (180 lb) General: Alert and oriented x3, no acute distress Eyes: Anicteric sclera. Pupils are equally round. Extraocular movements are intact. Neck supple, no cervical lymphadenopathy Thyroid: normal size, normal texture, no palpable nodules Lungs: Breathing unlabored, clear to auscultation. No wheezing, rhonchi, rales Heart regular rate and rhythm, no murmer Musculoskeletal: Muscular strength intact, No joint swelling, deformity, or tenderness Neuro: Gait normal. Sensation grossly intact. 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 thyroiditis: -Pathophysiology explained, and possible need for increasing doses of levothyroxine in coming years due to increasing dysfunction of the thyroid gland due to effect of antibodies -Reviewed initiation of treatment with low-dose thyroid hormone supplement due to presence of symptoms -Start levothyroxine 25 mcg once daily -Appropriate (more content not included)... Normal [facility] CNTHERAPYon 08-04-2022 CNTHERAPY OT/PT/Speech Visit ([facility]) DEANNE SÁNCHEZ ([id number]) 1960 F Date Time Provider Department 08/04/22 8:00 AM VERONICA MOHAMUD [facility] Date Time Provider Department Center 08/04/2022 8:00 AM [id number] for Visit: Occupational Therapy [504] OT Discharge [750] Primary Visit Diagnosis:Thumb joint stiffness [M25.649] Other Visit Diagnosis:Primary osteoarthritis of first carpometacarpal joint of right hand [M18.11] Allergies As of Date: 08/04/2022 Noted Allergy Reaction CORTISONE 09/25/2021 4 - Hives Comments: States it turns her legs purple. INFLUENZA VIRUS VACCINES 09/25/2021 4 - Hives Comments: States it turns her legs purple Date Reviewed: 07/13/2022 Reviewed by: Jannie Mars Ma - Fully Assessed Prescriptions as of 02/16/2023 - MULTIVITAMIN ORAL Take by mouth. - ergocalciferol, vitamin D2, (VITAMIN D2 ORAL) Take by mouth. - ascorbic acid (VITAMIN C ORAL) Take by mouth. - ZINC ORAL Take by mouth. - MEDICATION, NON-DATABASE Tumeric with herb Annotated image of OT HAND PUTTY EXERCISES COMPREHENSIVE PG 1 OF 3 last updated by Veronica Mohamud OT/L on 08/04/2022 8:19 AM Annotated image of OT HAND PUTTY EXERCISES COMPREHENSIVE PG 3 OF 3 last updated by Veronica Mohamud OT/Sylvia on 08/04/2022 8:19 AM [facility] CNTHERAPYon 07-21-2022 [facility] DEANNE SÁNCHEZ ([id number]) 1960 F Date Time Provider Department 07/21/22 8:00 AM IMAN SINHA [facility] Date Time Provider Department Center 07/21/2022 8:00 AM [id number], L[facility] Reason for Visit: Occupational Therapy [504] Primary Visit Diagnosis:Thumb joint stiffness [M25.649] Other Visit Diagnosis:Primary osteoarthritis of first carpometacarpal joint of right hand [M18.11] Allergies As of Date: 07/21/2022 Noted Allergy Reaction CORTISONE 09/25/2021 4 - Hives Comments: States it turns her legs purple. INFLUENZA VIRUS VACCINES 09/25/2021 4 - Hives Comments: States it turns her legs purple Date Reviewed: 07/13/2022 Reviewed by: Jannie Mars Ma - Fully Assessed Prescriptions as of 07/21/2022 - MULTIVITAMIN ORAL Take by mouth. - ergocalciferol, vitamin D2, (VITAMIN D2 ORAL) Take by mouth. - ascorbic acid (VITAMIN C ORAL) Take by mouth. - ZINC ORAL Take by mouth. - MEDICATION, NON-DATABASE Tumeric with herb Letter Text [facility] GENERAL 3V PA/LAT/OB L RIGHTon 07-13-2022 [facility] CNTHERAPYon 07-07-2022 CNTHERAPY OT/PT/Speech Visit ([facility]) DEANNE SÁNCHEZ ([id number]) 1960 F Date Time Provider Department 07/07/22 3:00 PM VERONICA MOHAMUD [facility] Date Time Provider Department Center 07/07/2022 3:00 PM [id number] MOHAMUD [facility] Reason for Visit: Occupational Therapy [504] Primary Visit Diagnosis:Primary osteoarthritis of first carpometacarpal joint of right hand [M18.11] Allergies As of Date: 07/07/2022 Noted Allergy Reaction CORTISONE 09/25/2021 4 - Hives Comments: States it turns her legs purple. INFLUENZA VIRUS VACCINES 09/25/2021 4 - Hives Comments: States it turns her legs purple Date Reviewed: 06/23/2022 Reviewed by: Galo Warren MD - Fully Assessed Prescriptions as of 07/07/2022 - MULTIVITAMIN ORAL Take by mouth. - ergocalciferol, vitamin D2, (VITAMIN D2 ORAL) Take by mouth. - ascorbic acid (VITAMIN C ORAL) Take by mouth. - ZINC ORAL Take by mouth. - MEDICATION, NON-DATABASE Tumeric with herb Annotated image of OT HAND POST-OP EX'S PG6-THUMB last updated by SCOTT Cisneros on 07/07/2022 3:37 PM [facility] CNTHERAPYon 06-23-2022 CNTHERAPY OT/PT/Speech Visit ([facility]) DEANNE SÁNCHEZ ([id number]) 1960 F Date Time Provider Department 06/23/22 2:15 PM VERONICA MOHAMUD [facility] Date Time Provider Department Center 06/23/2022 2:15 PM [id number] MOHAMUD [facility] Reason for Visit: OT EVAL [748] Visit Diagnosis:Primary osteoarthritis of first carpometacarpal joint of right hand [M18.11] Allergies As of Date: 06/23/2022 Noted Allergy Reaction CORTISONE 09/25/2021 4 - Hives Comments: States it turns her legs purple. INFLUENZA VIRUS VACCINES 09/25/2021 4 - Hives Comments: States it turns her legs purple Date Reviewed: 06/23/2022 Reviewed by: Galo Warren MD - Fully Assessed Prescriptions as of 06/23/2022 - MULTIVITAMIN ORAL Take by mouth. - ergocalciferol, vitamin D2, (VITAMIN D2 ORAL) Take by mouth. - ascorbic acid (VITAMIN C ORAL) Take by mouth. - ZINC ORAL Take by mouth. - MEDICATION, NON-DATABASE Tumeric with herb Annotated image of OT HAND POST-OP EX'S PG6-THUMB last updated by Veronica Mohamud OT/L on 06/23/2022 2:50 PM Annotated image of OT HAND POST-OP EX'S PG4-WRIST last updated by Veronica Mohamud OT/L on 06/23/2022 2:50 PM Annotated image of OT HAND POST-OP EX'S PG1-WRITTEN INSTRUCTIONS last updated by Veronica Mohamud OT/L on 06/23/2022 2:50 PM [facility] POSTPROC EVALon 023 [facility] POSTPROC EVAL HNO ID: [id number] Author: Freda Hernandez MD Service: Anesthesiology Author Type: Anesthesiologist Type: Anesthesia Postprocedure Evaluation Filed: 06/10/2022 1:06 PM Note Text: POST ANESTHESIA EVALUATION NOTE : 1960 Procedure Summary Date: 06/10/22 Room / Location: ND OR / ND OR Anesthesia Start: 1004 Anesthesia Stop: 1138 Procedure: ARTHROPLASTY CARPOMETACARPAL JOINTS (Right: Wrist) Diagnosis: Primary osteoarthritis of first carpometacarpal joint of right hand (Primary osteoarthritis of first carpometacarpal joint of right hand [M18.11]) Surgeons: Galo Warren MD Responsible Provider: Freda Hernandez MD Anesthesia Type: MAC, general ASA Status: 2 Anesthesia Type: MAC, general Last Vitals Vitals Value Taken Time BP 128/63 06/10/22 1200 Temp 36.6 ?C (97.9 ?F) 06/10/22 1141 Pulse 48 06/10/22 1210 Resp 12 06/10/22 1210 SpO2 91 % 06/10/22 1210 Vitals shown include unvalidated device data. Post Anesthesia Patient Status Patient Evaluation: PACU. PACU/ICU Patient Condition: stable. Anticipated Disposition: phase 2 then home. Neurological Status: aware and responsive. Pulmonary Status: breathing comfortably on room air Airway Control: returned to baseline unsupported. Cardiovascular Status: stable. Pain Management: clinically adequate - multimodal analgesia pain management approach Postoperative Hydration: acceptable. Intraoperative Events: no significant anesthesia events Post Operative Nausea/Vomiting Status: no significant post operative nausea or vomiting Recommendation: continue current plan of care. Anesthesia Observations No Documentation SIGNATURE: Freda Hernandez MD PATIENT NAME: Deanne Sánchez DATE: June 10, 2022 TIME: 1:06 PM CSN: [id number] [facility] ANES PRE-OPon 06-10-2022 ANES PRE-OP HNO ID: [id number] Author: Freda Hernandez MD Service: Anesthesiology Author Type: Anesthesiologist Type: Anesthesia Preprocedure Evaluation Filed: 06/10/2022 9:56 AM Note Text: ANESTHESIOLOGY DAY OF SURGERY NOTE : 1960 Procedure Information Date/Time: 06/10/22939 Procedure: ARTHROPLASTY CARPOMETACARPAL JOINTS (Right: Wrist) Location: ND OR02 / ND OR Surgeons: Galo Warren MD Estimated body mass index is 25.83 kg/m? as calculated from the following: Height as of this encounter: 177.8 cm (5' 10). Weight as of this encounter: 81.6 kg (180 lb). Most recent hematocrit and potassium results: Hematocrit 41.4 09/17/2021 Potassium 5.1 09/17/2021 Relevant Problems No relevant active problems I - PHYSICAL EVALUATION AIRWAY Patient intubated: No. Tracheostomy tube not present Mallampati: II. TM distance: >3 FB. Neck ROM: full ROM without neurological symptoms. Mouth opening: adequate. Short neck: no. Thick neck: no Whitney present: no Additional exam findings: yes. CARDIOVASCULAR Rhythm: regular PULMONARY Breath sounds clear to auscultation. II - ANESTHESIA PLAN ASA Score: 2 Anesthetic Plan: MAC and general Airway type: LMA The patient is not a current smoker. NPO Status: adequate Beta Jo Ann Administration of chronic beta jo ann medication not planned. Monitoring Plan Monitoring plan: standard ASA. Post Procedure Analgesic Plan Postoperative analgesic plan: multimodal analgesia. Informed Consent Anesthetic risks, benefits, alternatives, personnel and consent discussed: yes. Patient / Responsible Alliance Party agrees to proceed: yes Patient / Surrogate agrees to blood products: blood products not planned Vitals Value Taken Time BP 172/81 06/10/22824 Pulse 59 06/10/22824 Resp 14 06/10/22824 Temp 36.1 ?C (97 ?F) 06/10/22824 SpO2 99 % 06/10/22824 Facility-Administered Medications as of 06/10/2022 Medication Dose Route Frequency - lidocaine (PF) 10 mg/mL (1 %) 1-2 mg injection (XYLOCAINE) 0.1-0.2 mL INTRADERMAL PRN - lactated ringers iv infusion 5-30 mL/hr INTRAVENOUS CONTINUOUS - NaCl 0.9% iv flush bag 20 mL INTRAVENOUS PRN - ceFAZolin iv piggyback 2 g in D5W (iso-osmotic) 100 mL (ANCEF) 2 g INTRAVENOUS Pre-Op Once - promethazine 12.5 mg tab(s) (PHENERGAN) 12.5 mg ORAL Pre-Op Once - acetaminophen 1,000 mg tab(s) (TYLENOL) 1,000 mg ORAL Pre-Op Once - midazolam (PF) 2 mg injection (VERSED) 2 mg INTRAVENOUS ONCE Outpatient Medications as of 06/10/2022 Medication Sig - MULTIVITAMIN ORAL Take by mouth. - ergocalciferol, vitamin D2, (VITAMIN D2 ORAL) Take by mouth. - ascorbic acid (VITAMIN C ORAL) Take by mouth. - ZINC ORAL Take by mouth. - MEDICATION, NON-DATABASE Tumeric with herb I have interviewed and examined the patient. I have reviewed the medical record and/or the pre-anesthesia evaluation, pertinent labs, and test results. This contains updated information obtained within 48 hours of Surgery/Procedure. SIGNATURE: Freda Hernandez MD PATIENT NAME: Deanne Sánchez DATE: June 10, 2022 TIME: 8:34 AM CSN: [id number] [facility] NURSING PROGon 06-10-2022 NURSING PROG HNO ID: [id number] Author: Emily Worley RN Service: Nursing Author Type: Registered Nurse Type: Nursing Progress Note Filed: 06/10/2022 10:08 AM Note Text: Other: Dr. Hernandez at bedside for Ultrasound guided Right Supraclavicular nerve block. RN at bedside, pt monitored throughout, BP 125/64 Pulse (!) 53 Temp 36.1 ?C (97 ?F) (Temporal Artery) Resp 16 Ht 177.8 cm (5' 10) Wt 81.6 kg (180 lb) SpO2 100% BMI 25.83 kg/m? . Pt medicated with versed 2mg IV as per MD orders. Pt tolerated procedure without difficulty. Report to Shaina ARREAGA and Cortney RN. Pt was marked to R hand by Dr. Warren and prior nerve tiik. [facility] NURSING PROG HNO ID: [id number] Author: Emily Worley RN Service: Nursing Author Type: Registered Nurse Type: Nursing Progress Note Filed: 06/10/2022 8:35 AM Note Text: Other: pt ready for OR, call light in reach, called to bedside. Needs consent signed prior to OR [facility] OPERATIVE NOon 06-10-2022 OPERATIVE NO HNO ID: [id number] Author: Galo Warren MD Service: Orthopaedic Surgery Author Type: Physician Type: Operative Report Filed: 06/10/2022 1:59 PM Note Text: OPERATIVE/PROCEDURE REPORT LOG ID: [id number] SURGERY/PROCEDURE DATE: 06/10/2022 INCISION/PROCEDURE START TIME: 10:22 AM INCISION CLOSE/PROCEDURE END TIME: 11:25 AM SURGEON(S)/PROCEDURALI ST(S) AND LPN OR MEDICAL ASSISTANT(S): Surgeon(s) and Role: * Galo Warren MD - Primary Physician Water Rights Specialist: Juli Teran PA-C SURGERY/PROCEDURE(S): 1. Right thumb, carpometacarpal joint arthroplasty with trapeziectomy. 2. Right wrist, first dorsal compartment release ANESTHESIA: [facility] - Extremity Upper SURGERY/PROCEDURE DETAILS: This is a pleasant, 62-year-old female with a history of Right thumb carpometacarpal joint arthritis who has exhausted nonoperative management. We reviewed the risks, benefits, alternatives and potential complications involving both operative nonoperative treatment. She wished to pursue surgery on the thumb. In the preoperative area pt was marked by myself and subsequently had an upper extremity block placed per the anesthetic team. She received 2 g of Ancef in the IV within 1 hour of incision or tourniquet. Pt was then taken the operative suite and placed in a supine position with an armboard on the Right. All other bony landmarks were properly padded in standard fashion. Anesthesia assumed care of the head and neck for the remainder the case and began a supplemental anesthetic. A well-padded upper brachium tourniquet was applied with cotton padding, all other bony prominences were padded accordingly. The upper extremity was then sterilely prepped and draped in standard fashion. A timeout was conducted and all in the room were in agreement, signed consent form was on the chart, images were available for viewing and implants were in the room with representation. The upper extremity was then exsanguinated with an Esmarch bandage and the tourniquet was applied at 250 mmHg. A dorsal incision was made directly over the CMC joint with a 15 blade through the dermis. Care was taken to identify the radial sensory nerve branches and these were protected throughout the case. I then came down through the interval between the APL and EPB tendons. The compartments containing these were released following back proximally releasing the first dorsal compartment. The CMC joint capsule was then identified and incised along the ulnar border of the APL tendon. The radial artery branches were identified proximal to this and were protected with a Ragnell retractor. Full-thickness flap of capsule was then elevated to expose the trapezium. I dissected out all of the borders of the trapezium confirming the metacarpal trapezial joint as well as the trapezium scaphoid joints. There was severe OA with eburnated bone and sclerosis, few loose bodies. I then used a reciprocating saw to score an x into the trapezium and then a small osteotome was used to split it in line with the FCR tendon is running deep to it. Both rongeur as well as Adson-Brown with a knife was used to completely remove all the portions of the trapezium. The wound was copiously irrigated and I used a [place] to inspect the joint to make sure there were no remaining fragments as well as inspecting the scaphoid trapezial joint which was looking appropriate in this case. I then used an 0 FiberWire passed between the APL tendon distally and the FCR tendon near its insertion at the index metacarpal and the trapeziectomy site. The suture was tightened down with a series of 7 kn and a second one was placed in a krveen-zx-ftbvv fashion to provide a suspension for the thumb metacarpal. With axial loading there was no subluxation or proximal migration of the metacarpal. I then released the FCR proximal to this tenodesis. I copiously irrigated the joint again and closed the capsule with a 4-0 Monocryl suture in a watertight closure. At this time the tourniquet was taken down and hemostasis was observed with bipolar electrocautery. The skin closure was then completed with a few buried 3-0 Monocryl sutures as well as a running, subcuticular weave with skin glue and Steri-Strips on the tails. Sterile 4 x 4's, a well-padded splint was created across the thumb leaving the IP joint free, a light Lisa wrap and Faizan bandage for final bandages. Patient was safely awoken and transferred to the postanesthetic care unit in stable condition. There were no complications during the procedure. PRE-OP/PRE-PROCEDURE DIAGNOSIS: 1. Right thumb, carpometacarpal joint osteoarthritis. 2. Right wrist, de Quervain's tenosynovitis. POST-OP/POST-PROCEDURE DIAGNOSIS: Same as Preop ESTIMATED BLOOD LOSS: 30 mls SPECIMENS: None sent IMPLANTABLE DEVICES: None DRAINS: None COMPLICATIONS: None PARTICIPATION IN SURGERY/PROCEDURE: I/primary surgeon/proceduralist performed the procedure wit (more content not included)... Normal [facility] SURGICAL PATHOLOGYon 023 CASE REPORT Normal [facility] Comment on above: Order Comment: Specloreto cordero Type: TISSUE SPECIMENOrdering Facility: [facility] Address: [address] [place] [address] Result Comment: Surg [facility] Pathology Report Case: [id number] Authorizing Provider: Galo Warren MD Collected: 06/10/2022 10:49 AM Ordering Location: [facility] Surgery Received: 06/10/2022 12:29 PM Pathologist: Abisai Acosta MD Specimen: SYNOVIUM, right thumb Performed By: #### S ####[facility] LABCLIA [id number] [facility] [id number] [address] [place] CLINICAL HISTORY Normal [facility] Comment on above: Order Comment: Speci men Type: TISSUE SPECIMENOrdering Facility: [facility] Address: [address] [place] [address] Result Comment: Pre- op diagnosis: Primary osteoarthritis of first carpometacarpal joint of right hand [M18.11] Performed By: #### S ####[facility] LABCLIA [id number] [address] FINAL DIAGNOSIS [facility] Comment on above: Order Comment: Malcolm cordero Type: TISSUE SPECIMENOrdering Facility: [facility] Address: [address] [place] [place] [address] Result Comment: Soft tissue, right thumb synovium, excision: - Benign, noninflamed tenosynovium. - A [place] red stain is negative for amyloid deposits. Performed By: #### S ####[facility] LABCLIA [id number] [address] FINAL PERFORMING LAB [facility] Comment on above: Order Comment: Malcolm cordero Type: TISSUE SPECIMENOrdering Facility: [facility] Address: [address] [place] [address] Result Comment: Diag nostic interpretation performed at [facility], [address] [place] [address] CLIA# [id number] Employment Instructional Associate: Joey Yeager M.D. Performed By: #### S ####[facility] LABCLIA [id number] [address] GROSS DESCRIPTION A. SYNOVIUM [facility] Comment on above: Order Comment: Malcolm cordero Type: TISSUE SPECIMENOrdering Facility: [facility] Address: [address] [address] Result Comment: Rece ived in formalin labeled right thumb synovium is an 1.4 x 0.6 x 0.5 cm segment of carpenter, irregular membranous soft tissue. The specimen is entirely submitted intact in one cassette. Gross examination performed at [facility], [facility] [place] [id number] CLIA# [id number] [facility] 06/10/22 Performed By: #### S ####[facility] LABCLIA [id number] [place] [address] STATES OF [facility] Small Joint Arthro/Inj: R umb [facility] Vital Signs Date Time Vital Sign Value Performing Clinician Corey goldsmith 07-18-2024 09:52-0500 Diastolic blood pressure 90 mm[Hg] Grace oR LEAD [employer] Work Phone: [facility] 07-18-2024 09:52-0500 Heart rate 54 /min Grace Ro LEAD [employer]MER[employer] Work Phone: [facility] 07-18-2024 09:52-0500 Respiratory rate 16 /min Grace Ro LEAD [employer] Work Phone: [facility] 07-18-2024 09:52-0500 SaO2% (BldA) [Mass fraction] 99 % Grace Ro LEAD [employer] Work Phone: [facility] 07-18-2024 09:52-0500 Systolic blood pressure 138 mm[Hg] Grace Ro LEAD [employer]MER[employer] Work Phone: [facility] 07-03-2024 11:36-0500 Body mass index (BMI) [Ratio] 26.79 kg/m2 Dior Montoya MD Work Phone: [facility] 07-03-2024 11:36-0500 Body temperature 96.21 [degF] Dior Montoya MD Work Phone: [facility] 07-03-2024 11:36-0500 Body weight 82.28 kg Dior Montoya MD Work Phone: [facility] 07-03-2024 11:36-0500 Diastolic blood pressure 72 mm[Hg] Dior Montoya MD Work Phone: [facility] 07-03-2024 11:36-0500 Heart rate 68 /min Dior Montoya MD Work Phone: [facility] 07-03-2024 11:36-0500 SaO2% (BldA) [Mass fraction] 99 % Dior Montoya MD Work Phone: [facility] 07-03-2024 11:36-0500 Systolic blood pressure 136 mm[Hg] Dior Montoya MD Work Phone: [facility] 03-02-2024 09:36-0400 Body height 175.3 cm Dior Montoya MD Work Phone: [facility] 03-02-2024 09:36-0400 Body mass index (BMI) [Ratio] 27.02 kg/m2 Dior Montoya MD Work Phone: [facility] 03-02-2024 09:36-0400 Body weight 83.01 kg Dior Montoya MD Work Phone: [facility] 03-02-2024 09:36-0400 Heart rate 56 /min Dior Montoya MD Work Phone: [facility] 03-02-2024 09:36-0400 Respiratory rate 19 /min Dior Montoya MD Work Phone: [facility] 03-02-2024 09:36-0400 SaO2% (BldA) [Mass fraction] 98 % Dior Montoya MD Work Phone: [facility] 08-31-2023 13:11-0400 Body height 175.3 cm Dior Montoya MD Work Phone: [facility] 08-31-2023 13:11-0400 Body weight 85.82 kg Dior Montoya MD Work Phone: [facility] 08-31-2023 13:11-0400 Diastolic blood pressure 86 mm[Hg] Dior Montoya MD Work Phone: [facility] 08-31-2023 13:11-0400 Heart rate 63 /min Dior Montoya MD Work Phone: [facility] 08-31-2023 13:0400 Respiratory rate 18 /min Dior Montoya MD Work Phone: [facility] 08-31-2023 13:110400 SaO2% (BldA) [Mass fraction] 97 % Dior Montoya MD Work Phone: [facility] 08-31-2023 13:11040 Systolic blood pressure 128 mm[Hg] Dior Montoya MD Work Phone: [facility] 05-27-2022 14:050 Body height 177.8 cm [facility] 05-27-2022 14:050 Body weight 81.65 kg [facility] Encounters Encounter Date Encounter Type Care Provider Facility Start: 09-28-2024 End: 11-28-2024 Follow-up encounter Dior Montoya MD Work Phone: Endocrinology Start: 08-09-2024 End: 08-09-2024 ambulatory Chai Rico MD Work Phone: Family [facility] Comment on above: white count Start: 08-09-2024 End: 08-09-2024 E-mail encounter from caregiver Chai Rico MD Work Phone: Family [facility] Start: 08-07-2024 End: 08-09-2024 Follow-up encounter Chai Rico MD Work Phone: [facility] [place] Comment on above: Leukopenia, unspecif ied type (Primary Dx) Start: 08-07-2024 End: 08-07-2024 Patient encounter procedure Nadya Mclean CHIEF KNOWLEDGE OFFICER -Outpatient Breast Imaging Work Phone: Start: 08-07-2024 End: 08-07-2024 ambulatory [facility] Facility:[facility] Start: 08-07-2024 End: 08-07-2024 ambulatory Nadya Mclean Facility:[facility] Start: 07-18-2024 End: 07-18-2024 ambulatory [facility] Facility:[facility] Start: 07-18-2024 End: 07-18-2024 Patient encounter procedure Grace Ro APRN.[employer] Work Phone: [facility] [place] Comment on above: Welcome to Medicare preventive visit (Primary Dx); Hyperlipidemia, mixed; Screening for diabetes mellitus Start: 07-18-2024 End: 07-18-2024 Patient encounter status Grace Ro APRN.[employer] Work Phone: [facility] Work Phone: Start: 07-03-2024 End: 07-03-2024 ambulatory DIOR MONTOYA Facility:[facility] Start: 07-03-2024 End: 07-03-2024 Patient encounter procedure Dior Montoya MD Work Phone: Endocrinology Comment on above: Myriam's thyroidi tis (Primary Dx) Start: 06-22-2024 End: 06-22-2024 ambulatory DIOR MELTONRAY MONTOYA Facility:[facility] Start: 04-12-2024 End: 04-17-2024 ambulatory Gracehumberto Ro LEAD FORMER.[employer] Work Phone: Internal Medicine [place] [address] Start: 03-02-2024 End: 03-02-2024 ambulatory DIOR GERONIMO BERMANM Facility:[facility] Start: 03-02-2024 End: 03-02-2024 Patient encounter procedure Dior Montoya MD Work Phone: Endocrinology Comment on above: Myraim's thyroidi tis (Primary Dx) Start: 02-21-2024 End: 02-21-2024 Patient Msg Dior Montoya MD Work Phone: Endocrinology Comment on above: Levothyroxine Refill Start: 12-27-2023 Patient Msg Dior Montoya MD Work Phone: General Surgery Comment on above: Medication Refill Refill Request Start: 11-09-2023 Refill Dior Montoya MD Work Phone: Endocrinology Comment on above: Refill Request Start: 10-21-2023 End: 10-21-2023 ambulatory DIOR MONTOYA Facility:[facility] Start: 08-31-2023 End: 08-31-2023 ambulatory DIOR MONTOYA Facility:[facility] Start: 08-31-2023 End: 08-31-2023 Patient encounter procedure Dior Montoya MD Work Phone: Endocrinology Comment on above: Myriam's thyroidi tis (Primary Dx); Abnormal thyroid blood test Start: 07-23-2023 Telephone encounter Chai Rico MD Work Phone: Family [facility] [place] Comment on above: Results Start: 07-20-2023 Telephone encounter Grace cain APRN.CNP Work Phone: [facility] [place] Comment on above: Endocrinology update Start: 08-04-2022 End: 08-04-2022 ambulatory Veronica Mohamud OT/L Work Phone: [facility] Outpatient Occupational Therapy Comment on above: Thumb joint stiffnes s (Primary Dx); Primary osteoarthritis of first carpometacarpal joint of right hand Start: 07-21-2022 End: 07-21-2022 ambulatory Iman Phil OT/L Work Phone: [facility] Outpatient Occupational Therapy Comment on above: Thumb joint stiffnes s (Primary Dx); Primary osteoarthritis of first carpometacarpal joint of right hand Start: 07-13-2022 End: 07-13-2022 Patient encounter procedure Galo Warren MD Work Phone: Orthopaedics Comment on above: Thumb pain, right (P rimary Dx) Start: 07-13-2022 End: 07-13-2022 Subsequent hospital visit by physician Rosaura [facility] [place] Martel Work Phone: Radiology Comment on above: Primary osteoarthrit is of first carpometacarpal joint of right hand [M18.11] Start: 07-08-2022 Orders Only Galo Warren MD Work Phone: Orthopaedics Comment on above: Primary osteoarthrit is of first carpometacarpal joint of right hand (Primary Dx) Start: 07-07-2022 End: 07-07-2022 ambulatory Veronica Mohamud OT/L Work Phone: [facility] Outpatient Occupational Therapy Comment on above: Primary osteoarthrit is of first carpometacarpal joint of right hand (Primary Dx) Start: 06-23-2022 End: 06-23-2022 ambulatory JULI TERAN Facility:[facility] Start: 06-23-2022 End: 06-23-2022 ambulatory Veronica Mohamud OT/L Work Phone: [facility] Outpatient Occupational Therapy Comment on above: Primary osteoarthrit is of first carpometacarpal joint of right hand Start: 06-23-2022 End: 06-23-2022 Patient encounter procedure Galo Warren MD Work Phone: Orthopaedics Comment on above: Primary osteoarthrit is of first carpometacarpal joint of right hand (Primary Dx) Start: 06-15-2022 ambulatory Galo Warren MD Work Phone: Orthopaedics Comment on above: post op visit Start: 06-12-2022 Telephone encounter Juli guillen PA-C Work Phone: Orthopaedics Comment on above: Appointment Start: 06-10-2022 End: 06-10-2022 ambulatory GRACE HARUBEN Facility:[facility] Start: 06-09-2022 ambulatory Galo Warren MD Work Phone: [facility] Start: 06-09-2022 Follow-up encounter Galo thomas MD Work Phone: Orthopaedics Comment on above: follow up appointmen ts to surgery and PT Start: 05-27-2022 End: 05-27-2022 Admission to establishment [facility] Start: 05-27-2022 End: 05-27-2022 ambulatory [facility] Comment on above: Pre-op evaluation (P rimary Dx) Start: 05-27-2022 End: 05-27-2022 Preprocedural examination done [facility]est[facility] Start: 04-13-2022 Telephone encounter Galo thomas MD Work Phone: Orthopaedics Comment on above: Reschedule surgery Start: 10-24-2021 Telephone encounter Grace cain APRN.[employer] Work Phone: [facility] Comment on above: Results Start: 10-14-2021 Telephone encounter Grace cain APRN.[employer] Work Phone: [facility] Comment on above: Results Start: 10-10-2021 End: 10-10-2021 Patient encounter procedure [facility]Out[facility] Breast [facility] Start: 10-08-2021 Telephone encounter Grace cain APRN.[employer] Work Phone: [facility] Comment on above: Orders Start: 09-25-2021 End: 09-25-2021 Patient encounter procedure Galo Warren MD Work Phone: Orthopaedics Comment on above: Primary osteoarthrit is of first carpometacarpal joint of right hand (Primary Dx); Thumb pain, right Start: 09-25-2021 End: 09-25-2021 Subsequent hospital visit by physician [facility] Work Phone: Radiology Comment on above: Thumb pain, right [M 79.644] Start: 09-22-2021 Orders Only Galo Warren MD Work Phone: Orthopaedics Comment on above: Thumb pain, right (P rimary Dx) Start: 09-19-2021 Telephone encounter Grace cain APRN.[employer] Work Phone: [facility] Comment on above: Results Procedures Date Procedure Procedure Detail Performing Clinician Start: 08-07-2024 Screening mammography C vania VILLEDAC Work Phone: Start: 08-07-2024 Lipid 1996 panel - S carrol or Plasma Chai Rico MD Work Phone: Start: 05-04-2023 Lipid 1996 panel - S carrol or Plasma Grace Ro APRN.[employer] Work Phone: Start: 07-13-2022 Radex hand minimum 3 views Galo Warren MD Work Phone: Start: 10-10-2021 End: 10-10-2021 Screening mammography Start: 09-25-2021 Arthrocentesis aspir &/inj small jt/bursa w/o us Galo Warren MD Work Phone: Start: 09-25-2021 Radex hand minimum 3 views Galo Warren MD Work Phone: Start: 09-17-2021 Adult depression scr eening assessment Galo Warren MD Work Phone: Start: 09-17-2021 Lipid 1996 panel - S carrol or Plasma [facility] Work Phone: Start: 12-10-2016 Mammography Galo thomas MD Work Phone: Plan of Treatment Date Care Activity Detail Author Start: 2034 RSV Vaccine (1 - 1-dose 75+ series) RSV Vaccine (1 - 1-dose 75+ series) [facility] Start: 08-07-2029 Lipid panel Lipid Screening [facility] Start: 05-04-2028 Lipid panel Lipid Screening [facility] Start: 08-08-2027 Diabetes Screening Diabetes Screenin g [facility] Start: 09-17-2026 Lipid 1996 panel - Serum or Plasma Lipid Screening [facility] Start: 09-17-2026 LIPID SCREEN LIPID SCREEN [facility] Start: 08-22-2026 Urine microalbumin profile DTaP,Tdap,Td Vaccine (2 - Td or Tdap) [facility] Start: 05-04-2026 Diabetes Screening Diabetes Screenin g [facility] Start: 07-18-2025 Covid-19 Vaccine ( season) Covid-19 Vaccine ( season) [facility] Comment on above: Postponed from 02/05 (Declined at this time) Start: 07-18-2025 Medicare Annual Wellness Visit Medicare Annual Wellness Visit [facility] Start: 07-18-2025 Pneumococcal Vaccine : 50+ (1 of 1 - PCV) Pneumococcal Vaccine: 50+ (1 of 1 - PCV) [facility] Comment on above: Postponed from 05/16 (Declined at this time) Start: 07-09-2025 End: 10-08-2025 Thyrotropin [Units/volume] in Serum or Plasma THYROID STIMULATING HORMONE Lab Routine Myriam's thyroiditis Expected: 07/09/2025, Expires: 10/08/2025 [facility] Work Phone: Comment on above: Expected: 07/09/2025 , Expires: 10/08/2025 Start: 07-09-2025 End: 10-08-2025 Thyroxine (T4) free [Mass/volume] in Serum or Plasma T4 FREE/FREE THYROXINE Lab Routine Myriam's thyroiditis Expected: 07/09/2025, Expires: 10/08/2025 [facility] Comment on above: Expected: 07/09/2025 , Expires: 10/08/2025 Start: 06-21-2025 End: 09-20-2025 Thyrotropin [Units/volume] in Serum or Plasma THYROID STIMULATING HORMONE Lab Routine Myriam's thyroiditis Expected: 06/21/2025, Expires: 09/20/2025 [facility] Work Phone: Comment on above: Expected: 06/21/2025 , Expires: 09/20/2025 Start: 06-21-2025 End: 09-20-2025 Thyroxine (T4) free [Mass/volume] in Serum or Plasma T4 FREE/FREE THYROXINE Lab Routine Myriam's thyroiditis Expected: 06/21/2025, Expires: 09/20/2025 [facility] Comment on above: Expected: 06/21/2025 , Expires: 09/20/2025 Start: 02-05-2025 Influenza vaccination Influenz a Vaccine (Season Ended) [facility] Start: 12-04-2024 Influenza vaccination Influenza Vacc ine (#1) [facility] Comment on above: Postponed from 02/05 (Declined at this time) Start: 10-15-2024 COLOGUARD (FIT-DNA) COLOGUARD (FIT-D NA) [facility] Start: 10-15-2024 COLORECTAL CANCER SCREENING COLORECTAL CANCER SCREENING [facility] Start: 10-15-2024 Screening for malignant neoplasm of colon [facility] Start: 09-17-2024 DIABETES SCREEN DIABETES SCREEN [facility] Start: 09-17-2024 Diabetes Screening Diabetes Screenin g [facility] Start: 08-08-2024 End: 11-07-2024 CBC W Ordered Manual Differential panel - Blood PATHOLOGIST INTERPRETATION WITH CBC AND DIFF Lab Routine Leukopenia, unspecified type Expected: 08/08/2024, Expires: 11/07/2024 [facility] Work Phone: Comment on above: Expected: 08/08/2024 , Expires: 11/07/2024 Start: 07-18-2024 End: 10-17-2024 CBC W Auto Differential panel - Blood COMPLETE BLOOD COUNT AND DIFFERENTIAL Lab Routine Hyperlipidemia, mixed Screening for diabetes mellitus Expected: 07/18/2024, Expires: 10/17/2024 [facility] Comment on above: Expected: 07/18/2024 , Expires: 10/17/2024 Start: 07-18-2024 End: 10-17-2024 Comprehensive metabolic 2000 panel - Serum or Plasma COMPREHENSIVE METABOLIC PANEL Lab Routine Hyperlipidemia, mixed Screening for diabetes mellitus Expected: 07/18/2024, Expires: 10/17/2024 [facility] Comment on above: Expected: 07/18/2024 , Expires: 10/17/2024 Start: 07-18-2024 End: 10-17-2024 Lipid 1996 panel - Serum or Plasma LIPID PANEL BASIC Lab Routine Hyperlipidemia, mixed Expected: 07/18/2024, Expires: 10/17/2024 [facility] Work Phone: Comment on above: Expected: 07/18/2024 , Expires: 10/17/2024 Start: 07-18-2024 End: 07-18-2024 Patient encounter procedure 07/18/2024 10:00 AM EST Office Visit Family Medicine [place] [address] [facility] [place] [id number] Grace Ro, [employer]AD [employer] [address] [facility] [place] [id number] well visit- just started on Medicare [facility] [place] Comment on above: well visit- just sta rted on Medicare Start: 07-03-2024 End: 07-03-2024 Patient encounter procedure 07/03/2024 11:40 AM EST Office Visit Endocrinology [address] [place] [address] Dior Montoya MD [address] [place] [address] 4 month follow up Endocrinology Comment on above: 4 month follow up Start: 06-21-2024 End: 09-20-2024 Thyrotropin [Units/volume] in Serum or Plasma THYROID STIMULATING HORMONE Lab Routine Myriam's thyroiditis Expected: 06/21/2024, Expires: 09/20/2024 [facility] Work Phone: Comment on above: Expected: 06/21/2024 , Expires: 09/20/2024 Start: 06-21-2024 End: 09-20-2024 Thyroxine (T4) free [Mass/volume] in Serum or Plasma T4 FREE/FREE THYROXINE Lab Routine Myriam's thyroiditis Expected: 06/21/2024, Expires: 09/20/2024 [facility] Comment on above: Expected: 06/21/2024 , Expires: 09/20/2024 Start: 06-07-2024 Advance Directive Discussion Advance Directive Discussion [facility] Start: 05-04-2024 Covid-19 Vaccine (#1) Covid-19 Vacci ne (#1) [facility] Comment on above: Postponed from 11/14 (Declined at this time) Start: 05-04-2024 Covid-19 Vaccine () Covid-19 Vaccine ( season) [facility] Comment on above: Postponed from 02/05 (Declined at this time) Start: 05-04-2024 RSV Vaccine (1 - 1-dose 60+ series) RSV Vaccine (1 - 1-dose 60+ series) [facility] Comment on above: Postponed from 05/16 (Declined at this time) Start: 05-04-2024 Shingrix Vaccine (1 of 2) Shingrix Vaccine (1 of 2) [facility] Comment on above: Postponed from 05/16 (Declined at this time) Start: 03-02-2024 End: 03-02-2024 Patient encounter procedure 03/02/2024 9:40 AM EDT Office Visit Endocrinology [address] [place], [place] [id number] Dior Montoya MD [address] [place] [address] Return in about 6 months (around 03/02/2024) for Hypothyroidism. Endocrinology Comment on above: Return in about 6 mo nths (around 03/02/2024) for Hypothyroidism. Start: 02-06-2024 Covid-19 Vaccine ( season) Covid-19 Vaccine () [facility] Start: 02-06-2024 Covid-19 Vaccine () Covid-19 Vaccine () [facility] Start: 02-06-2024 Influenza vaccination [facility] Start: 12-05-2023 Influenza vaccination Influenza Vacc ine (#1) [facility] Comment on above: Postponed from 02/05 (Declined at this time) Start: 10-20-2023 End: 01-19-2024 Thyrotropin [Units/volume] in Serum or Plasma TSH BLD Lab Routine Myriam's thyroiditis Expected: 10/20/2023, Expires: 01/19/2024 [facility] Work Phone: Comment on above: Expected: 10/20/2023 , Expires: 01/19/2024 Start: 10-20-2023 End: 01-19-2024 Thyroxine (T4) free [Mass/volume] in Serum or Plasma T4 FREE/FREE THYROX Lab Routine Myriam's thyroiditis Expected: 10/20/2023, Expires: 01/19/2024 [facility] Work Phone: Comment on above: Expected: 10/20/2023 , Expires: 01/19/2024 Start: 02-05-2023 Influenza vaccination Influenza Vacc ine (#1) [facility] Start: 10-10-2022 Mammography [facility] Start: 10-10-2022 Screening for malignant neoplasm of breast Mammogram Screening [facility] Start: 09-17-2022 Adult depression screening assessment DEPRESSION SCREENING [facility] Start: 09-17-2022 COVID-19 VACCINE (#1) COVID-19 VACCI NE (#1) [facility] Comment on above: Postponed from 05/16 (Declined at this time) Postponed from 11/14 (Declined at this time) Start: 09-17-2022 COVID-19 VACCINE (1) COVID-19 VACCIN E (1) [facility] Comment on above: Postponed from 05/16 (Declined at this time) Start: 06-07-2022 [address] [facility] Start: 02-05-2022 Influenza vaccination [facility] Start: 06-07-2021 DEPRESSION ASSESSMENT [facility] Start: 2019 RSV Vaccine (1 - 1-dose 60+ series) RSV Vaccine (1 - 1-dose 60+ series) [facility] Start: 12-10-2017 Mammography MAMMOGRAM [facility] Start: 2009 Pneumococcal Vaccine : 50+ (1 of 1 - PCV) Pneumococcal Vaccine: 50+ (1 of 1 - PCV) [facility] Start: 2009 SHINGRIX VACCINE (1 of 2) SHINGRIX VACCINE (1 of 2) [facility] Start: 2004 COLOGUARD (FIT-DNA) COLOGUARD (FIT-D NA) [facility] Start: 2004 Colonoscopy COLONOSCOPY [facility] Start: 2004 COLORECTAL CANCER SCREENING COLORECTAL CANCER SCREENING [facility] Start: [address] COLONOGRAPHY [facility] Start: 2004 FECAL OCCULT BLOOD FECAL OCCULT BLOO D [facility] Start: 2004 Screening for malignant neoplasm of colon [facility] Start: 2004 SIGMOIDOSCOPY SIGMOIDOSCOPY [facility] Start: 1989 HPV TESTING HPV TESTING [facility] Start: 1989 Screening for malignant neoplasm of cervix HPV Testing [facility] Start: 1980 PAP TESTING PAP TESTING [facility] Start: 1980 Screening for malignant neoplasm of cervix [facility] Start: 1978 Urine microalbumin profile DTAP,TDAP,TD (1 - Tdap) [facility] Start: 1977 Anxiety Screening Anxiety Screening [facility] Start: 1977 Depression Screening Depression Scre ening [facility] Start: 1959 Covid-19 Vaccine (#1) Covid-19 Vacci ne (#1) [facility] End: 05-12-2025 DBT Breast - bilateral screening JUDITH SCREENING [facility] Radiology Routine Encounter for screening mammogram for breast cancer 1 Occurrences starting 04/12/2024 until 05/12/2025 [facility] Work Phone: Comment on above: 1 Occurrences starti ng 04/12/2024 until 05/12/2025 End: 11-07-2022 JUDITH SCREENING [facility] JUDITH SCREENING [facility] Radiology Routine Visit for screening mammogram 1 Occurrences starting 10/08/2021 until 11/07/2022 [facility] Work Phone: Comment on above: 1 Occurrences starti ng 10/08/2021 until 11/07/2022 End: 10-22-2022 XR HAND GENERAL 3V PA/LAT/OBL RIGHT XR HAND GENERAL 3V PA/LAT/OBL RIGHT Radiology Routine Thumb pain, right 1 Occurrences starting 09/22/2021 until 10/22/2022 [facility] Work Phone: Comment on above: 1 Occurrences starti ng 09/22/2021 until 10/22/2022 XR HAND GENERAL 3V PA/LAT/OBL RIGHT XR HAND GENERAL 3V PA/LAT/OBL RIGHT Radiology Routine Thumb pain, right 09/25/2021 10:18 AM EDT [facility] Work Phone: End: 08-07-2023 XR HAND GENERAL 3V PA/LAT/OBL RIGHT XR HAND GENERAL 3V PA/LAT/OBL RIGHT Radiology Routine Primary osteoarthritis of first carpometacarpal joint of right hand 1 Occurrences starting 07/08/2022 until 08/07/2023 [facility] Work Phone: Comment on above: 1 Occurrences starti ng 07/08/2022 until 08/07/2023 [facility] Immunizations Immunization Date Immunization Notes Care Provider Fa cility 02-24-2020 influenza virus vaccine, unspecified formulation [employer] Work Phone: [facility] 08-22-2016 tetanus toxoid, redu clarita diphtheria toxoid, and acellular pertussis vaccine, adsorbed [facility] Payers Date Payer Category Payer Self-pay [id number] 2024 Private Health Insurance [facility] [id number] 2024 Unknown [id number] 2024 Medicare [id number] 2024 Medicare [id number] 2021 Unknown [employer] PPO [id number] 2021-Present [phone] [address] [place] [address] PPO [id number] 2021 Unknown [id number] 2020 Unknown [id number] Unknown [id number] Unknown SELF PAY INSURANCE [id number] Unknown [id number] Social History Date Type Detail Facility Start: 09-17-2021 End: 05-27-2022 Tobacco smoking status NHIS Never smoked tobacco [facility] Start: 09-17-2021 End: 05-27-2022 Tobacco use and exposure Smokeless tobacco non-user [facility] Start: 09-17-2021 History SDOH Alcohol Comment occasional glass of wine [facility] Start: 1960 Sex Assigned At Not on file [facility] Start: 09-15-2021 End: 04-09-2022 Exposure to SARS-CoV-2 (event) Not sure [facility] Start: 12-28-2020 Tobacco smoking stat us NHIS Unknown if ever smoked [facility] Work Phone: Start: 1960 Sex Assigned At Female [facility] Start: 07-13-2022 End: 05-04-2023 History of Social function [facility] Work Phone: Start: 07-13-2022 End: 05-04-2023 Tobacco use panel [facility] Work Phone: Adult Depression Screening Assessment 0 [facility] Work Phone: Start: 08-31-2023 End: 07-18-2024 Alcohol intake Current drinker of alcohol (finding) [facility] Has the [employer], or [employer] threatened to shut off services in your home in past 12Mo No [facility] Do you belong to any clubs or organizations such as muslim groups, unions, fraternal or athletic groups, or school groups? Yes [facility] Are you now , , , , never or living with a partner? [facility] How often to you hav e a drink containing alcohol? 2-4 times a month [facility] How many standard dr inks containing alcohol do you have on a typical day? 1 or 2 [facility] How often do you hav e 6 or more drinks on 1 occasion? Never [facility] Do you feel stress - tense, restless, nervous, or anxious, or unable to sleep at night because your mind is troubled all the time - these days [OSQ] Not at all [facility] (I/We) worried wheth er (my/our) food would run out before (I/we) got money to buy more. Never true [facility] Start: 08-18-2024 Sex Female (finding) [facility] Clinical Notes 09-22-2021 to 07-18-2024 Ever Small LPN - 07/18/2024 11:03 AM Grace Holley APRN.[employer] - 07/18/2024 10:12 AM ESTPatient InstructionsPatient InstructionsDoir Montoya MD - 07/03/2024 11:41 AM EST Note Date & Type Note Facility 07-18-2024 Note HNO ID: [id number] Author: EVER SMALL LPN Service: ? Author Type: LICENSED NURSE Type: Progress Notes Filed: 07/18/2024 16:47 Note Text: Vision Exam /c correction: R eye 20/20 L eye 20/20 [facility] 07-18-2024 History of Presen t illness Narrative Vision Exam /c correction: R eye 20/20 L eye 20/20 Images from the original note were not included. Deanne Sánchez is a 64 year old female here for a Medicare wellness visit. Medicare Health Risk Assessment General Health Very good Exercise: Minutes/Day 60 min Exercise: Days/Week 6 days Alcohol: Daily Use 2-4 times a month Alcohol: Drinks/Day 1 or 2 Alcohol: 6 or more drinks Never Feel off balance No Concerns: Teeth/Dentures No Concerns: Sexual function No Troubled by feelings None of the above Frequency: Eating healthy diet Nearly every day ADLs requiring help None of the above Safety precautions in home/vehicle Yes Smoke, vape, chews tobacco No Difficulty hearing No Difficulty seeing No Current Providers Follows with endocrinology for thyroid. Eye doctor. Medical/Family history review Reviewed and updated problem list, medical/surgical/family/social history, medications, and allergies. Opioid use review Opioid Medications (last 90 days) No data to display Anxiety/Depression screening PHQ-9 Score: 0 . NICOLAS-7 Score: 0 . Recommendation: no further intervention at this time Cognitive screening Mini Cog Score: 4 Cognitive screening reviewed and No further action needed (score 3-5). Functional Observation Was the patient's Timed Up & Go test unsteady or >= 12 seconds? No Advance Care Planning Patient did not wish or was not able to name a surrogate decision maker or provide an advance care plan REVIEW OF SYSTEMS GENERAL: No weight loss, malaise or fevers/chills HEENT: Negative for frequent or significant headaches, No changes in hearing or vision. NECK: Negative for lumps, goiter, pain and significant neck swelling RESPIRATORY: Negative for cough, hemoptysis, wheezing, dyspnea or shortness of breath CARDIOVASCULAR: Negative for chest pain, leg swelling, orthopnea, or palpitations GI: No nausea, vomiting, or diarrhea/constipation. No hematochezia/melena. Takes a daily evening tums for heartburn w/ effect. : No history of dysuria, frequency or incontinence MUSCULOSKELETAL: left knee, right hip, left thumb acts up. SKIN: followed w/ dermatology. Areas are fading. ENDOCRINE: Negative for cold or heat intolerance, polyuria, polydipsia and goiter NEURO: No history of headaches, syncope, paralysis, seizures or tremors Measurements BP 138/90 Pulse (!) 54 Resp 16 SpO2 99% Vision Screening: Follows with optometry/ophthalmology Right: 20/20 Left: 20/ 20 Both: 20/20 PHYSICAL EXAM: General Appearance: Well appearing, alert, in no acute distress, well-hydrated, well nourished. Skin: Skin color, texture, turgor normal, no suspicious rashes or lesions. Head: Normocephalic, no masses, lesions, tenderness or abnormalities. Eyes: Anicteric sclera. Extraocular movements are intact. Lungs: Lungs clear to auscultation. No wheezing, rhonchi, rales. Heart: RRR without murmur, gallop, or rubs. No ectopy. Neurologic: Gait normal. Assessment/Plan Welcome to Medicare preventive visit (Z00.00) - Counseled on healthy diet and regular exercise - Fall avoidance information provided - Personalized prevention plan provided documented in this encounter [facility] 07-18-2024 Note HNO ID: [id number] Author: GRACE RO APRN.MADELINE Service: ? Author Type: Nurse Practitioner Type: Progress Notes Filed: 07/18/2024 16:47 Note Text: Deanne Sánchez is a 64 year old female here for a Medicare wellness visit. Medicare Health Risk Assessment General Health Very good Exercise: Minutes/Day 60 min Exercise: Days/Week 6 days Alcohol: Daily Use 2-4 times a month Alcohol: Drinks/Day 1 or 2 Alcohol: 6 or more drinks Never Feel off balance No Concerns: Teeth/Dentures No Concerns: Sexual function No Troubled by feelings None of the above Frequency: Eating healthy diet Nearly every day ADLs requiring help None of the above Safety precautions in home/vehicle Yes Smoke, vape, chews tobacco No Difficulty hearing No Difficulty seeing No Current Providers Follows with endocrinology for thyroid. Eye doctor. Medical/Family history review Reviewed and updated problem list, medical/surgical/family/social history, medications, and allergies. Opioid use review Opioid Medications (last 90 days) No data to display Anxiety/Depression screening PHQ-9 Score: 0 . NICLOAS-7 Score: 0 . Recommendation: no further intervention at this time Cognitive screening Mini Cog Score: 4 Cognitive screening reviewed and No further action needed (score 3-5). Functional Observation Was the patient's Timed Up AND Go test unsteady or >= 12 seconds? No Advance Care Planning Patient did not wish or was not able to name a surrogate decision maker or provide an advance care plan REVIEW OF SYSTEMS GENERAL: No weight loss, malaise or fevers/chills HEENT: Negative for frequent or significant headaches, No changes in hearing or vision. NECK: Negative for lumps, goiter, pain and significant neck swelling RESPIRATORY: Negative for cough, hemoptysis, wheezing, dyspnea or shortness of breath CARDIOVASCULAR: Negative for chest pain, leg swelling, orthopnea, or palpitations GI: No nausea, vomiting, or diarrhea/constipation. No hematochezia/melena. Takes a daily evening tums for heartburn w/ effect. : No history of dysuria, frequency or incontinence MUSCULOSKELETAL: left knee, right hip, left thumb acts up. SKIN: followed w/ dermatology. Areas are fading. ENDOCRINE: Negative for cold or heat intolerance, polyuria, polydipsia and goiter NEURO: No history of headaches, syncope, paralysis, seizures or tremors Measurements BP 138/90 Pulse (!) 54 Resp 16 SpO2 99% Vision Screening: Follows with optometry/ophthalmology Right: 20/20 Left: 20/ 20 Both: 20/20 PHYSICAL EXAM: General Appearance: Well appearing, alert, in no acute distress, well-hydrated, well nourished. Skin: Skin color, texture, turgor normal, no suspicious rashes or lesions. Head: Normocephalic, no masses, lesions, tenderness or abnormalities. Eyes: Anicteric sclera. Extraocular movements are intact. Lungs: Lungs clear to auscultation. No wheezing, rhonchi, rales. Heart: RRR without murmur, gallop, or rubs. No ectopy. Neurologic: Gait normal. Assessment/Plan Welcome to Medicare preventive visit (Z00.00) - Counseled on healthy diet and regular exercise - Fall avoidance information provided - Personalized prevention plan provided [facility] 07-18-2024 Instructions Grace Ro APRN.[employer] - 07/18/2024 10:12 AM EST We can fax order over to mammogram. Get fasting labwork. Recheck in 1 year. Screening schedule The following prevention plan is recommended: Depression Screening Never done Anxiety Screening Never done Shingrix Vaccine(1 of 2) Never done Pneumococcal Vaccine: 50+(1 of 1 - PCV) Never done Mammogram Screening due on 10/10/2022 Influenza Vaccine(1) due on 02/06/2024 Covid-19 Vaccine(2023- season) Never done Advance Directive Discussion Never done Colorectal Cancer Screening due on 10/15/2024 WHAT YOU CAN DO TO PREVENT FALLS Many falls can be prevented. By making some changes, you can lower your chances of falling. Four things YOU can do to prevent falls for you* and your caregiver 1. Begin a regular exercise program Exercise is one of the most important ways to lower your chances of falling. It makes you stronger and helps you feel better. Exercises that improve balance and coordination (like Harry Chi) are the most helpful. Lack of exercise leads to weakness and increases your chances of falling. Ask your doctor or health care provider about the best type of exercise program for you. 2. Have your health care provider review your medicines Have your doctor or pharmacist review all the medicines you take, even [id number] medicines. As you get older, the way medicines work in your body can change. Some medicines, or combinations of medicines, can make you sleepy or dizzy and can cause you to fall. 3. Have your vision checked Have your eyes checked by an eye doctor at least once a year. You may be wearing the wrong glasses or have a condition like glaucoma or cataracts that limits your vision. Poor vision can increase your chances of falling. 4. Make your home safer About half of all falls happen at home. To make your home safer: Remove things you can trip over (like papers, books, clothes, and shoes) from stairs and places where you walk. Remove small throw rugs or use double-sided tape to keep the rugs from slipping. Keep items you use often in cabinets you can reach easily without using a step stool. Have grab bars put in next to your toilet and in the tub or shower. Use non-slip mats in the bathtub and on shower floors. Improve the lighting in your home. As you get older, you need brighter lights to see well. Hang light-weight curtains or shades to reduce glare. Have handrails and lights put in on all staircases. Wear shoes both inside and outside the house. Avoid going barefoot or wearing slippers. For more information, contact: Centers for Disease Control and Prevention www.cdc.gov/injury * This information may not apply if you have certain medical conditions. documented in this encounter [facility] 07-03-2024 Instructions Dior Montoya MD - 07/03/2024 11:45 AM EST Please continue the same dose of levothyroxine Labs in 1 year and follow up documented in this encounter [facility] 07-03-2024 Note HNO ID: [id number] Author: DIOR MONTOYA MD Service: ? Author Type: Physician Type: Progress Notes Filed: 07/05/2024 19:02 Note Text: [facility] Follow up note CONSULTED BY: Haylee Watson APRN. CNP My final recommendations will be communicated back to the requesting provider by way of shared Medical record or a letter via [place] mail History of present illness: Deanne Sánchez is a 63 year old female here to follow up of hypothyroidism. Initial visit on 08/31/2023 She was seen by chief design branch for non-itching lesions on skin (looks like scalds), for the last year, and antibodies were checked for diagnoses of [place]'s syndrome, which revealed high titers of TPO Thyroid labs were checked and due to symptoms, she was started on Levothyroxine 25 mcg daily, which she has been taking since October 2023. Labs done post initiation of medication are within normal. She denied any hypo or hyperthyroid symptoms today Family history: hypothyroidism in mother, one maternal cousin has hypothyroidism REVIEW OF SYSTEMS: As per HPI ALLERGIES: ALLERGIES Allergen Reactions Cortisone Hives States it turns her legs purple. Influenza Virus Vac* Hives States it turns her legs purple MEDICATIONS: Current Outpatient Medications on File Prior to Visit Medication Sig MULTIVITAMIN ORAL Take 1 tablet by mouth once daily. ergocalciferol, vitamin D2, (VITAMIN D2 ORAL) Take 1 tablet by mouth once daily. ascorbic acid (VITAMIN C ORAL) Take 1 tablet by mouth once daily. ZINC ORAL Take 1 tablet by mouth once daily. MEDICATION, NON-DATABASE Tumeric with herb (Patient not taking: Reported on 08/31/2023) No current facility-administered medications on file prior to visit. 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 - Tim Lemons PAST SURGICAL HISTORY: PAST SURGICAL HISTORY Procedure Laterality Date EXTRACTION ERUPTED TOOTH/EXR KNEE SURGERY HX Left meniscus THUMB RT Right 06/2021 FAMILY HISTORY: FAMILY HISTORY Problem Relation Age of Onset other (heart disease) Mother Hypothyroidism Mother other (type 2 diabetes) Mother cured herself Prostate Cancer Father other (back surgeries) Sister Cataract Sister other (knee surgery) Sister Ischemic Heart Disease Brother bypass other (kidney cancer) Brother Obesity Brother No Known Problems Brother other (heart disease) Maternal Grandmother other (heart disease) Maternal Grandfather Cancer Paternal Grandmother mid 50's. SOCIAL HISTORY: Social History Tobacco Use Smoking status: Never Smokeless tobacco: Never Vaping Use Vaping status: Never Used Substance Use Topics Alcohol use: Yes Alcohol/week: 1.0 standard drink of alcohol Types: 1 Glasses of wine per week Comment: occasional glass of wine Drug use: Never PHYSICAL EXAM: BP 136/72 (BP Site: Right Arm, BP Position: Sitting, BP Cuff Size: Regular Adult) Pulse 68 Temp (!) 35.7 ?C (96.2 ?F) (Temporal Artery) Wt 82.3 kg (181 lb 6.4 oz) SpO2 99% BMI 26.79 kg/m? Last 3 Encounter Wt Readings: Date: Wt: 08/31/2023 85.8 kg (189 lb 3.2 oz) 05/04/2023 84.8 kg (187 lb) 05/27/2022 81.6 kg (180 lb) General: Alert and oriented x3, no acute distress Eyes: Anicteric sclera. Extraocular movements are intact. Neck: supple, no cervical lymphadenopathy Thyroid: normal size, normal texture, no palpable nodules Lungs: Breathing unlabored on room air Heart regular rate and rhythm Musculoskeletal: Muscular strength intact, No joint swelling, deformity, or tenderness Neuro: Gait normal. 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 Endocrinology and Metabolism [place] [phone] [facility] 07-03-2024 History of Presen t illness Narrative [facility] Follow up note CONSULTED BY: Haylee Watson APRN. [employer] My final recommendations will be communicated back to the requesting provider by way of shared Medical record or a letter via [place] mail History of present illness: Deanne Sánchez is a 63 year old female here to follow up of hypothyroidism. Initial visit on 08/31/2023 She was seen by chief design branch for non-itching lesions on skin (looks like scalds), for the last year, and antibodies were checked for diagnoses of Cali's syndrome, which revealed high titers of TPO Thyroid labs were checked and due to symptoms, she was started on Levothyroxine 25 mcg daily, which she has been taking since October 2023. Labs done post initiation of medication are within normal. She denied any hypo or hyperthyroid symptoms today Family history: hypothyroidism in mother, one maternal cousin has hypothyroidism REVIEW OF SYSTEMS: As per HPI ALLERGIES: ALLERGIES Allergen Reactions Cortisone Hives States it turns her legs purple. Influenza Virus Vac* Hives States it turns her legs purple MEDICATIONS: Current Outpatient Medications on File Prior to Visit Medication Sig MULTIVITAMIN ORAL Take 1 tablet by mouth once daily. ergocalciferol, vitamin D2, (VITAMIN D2 ORAL) Take 1 tablet by mouth once daily. ascorbic acid (VITAMIN C ORAL) Take 1 tablet by mouth once daily. ZINC ORAL Take 1 tablet by mouth once daily. MEDICATION, NON-DATABASE Tumeric with herb (Patient not taking: Reported on 08/31/2023) No current facility-administered medications on file prior to visit. 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 - [facility] PAST SURGICAL HISTORY: PAST SURGICAL HISTORY Procedure Laterality Date EXTRACTION ERUPTED TOOTH/EXR KNEE SURGERY HX Left meniscus THUMB RT Right 06/2021 FAMILY HISTORY: FAMILY HISTORY Problem Relation Age of Onset other (heart disease) Mother Hypothyroidism Mother other (type 2 diabetes) Mother cured herself Prostate Cancer Father other (back surgeries) Sister Cataract Sister other (knee surgery) Sister Ischemic Heart Disease Brother bypass other (kidney cancer) Brother Obesity Brother No Known Problems Brother other (heart disease) Maternal Grandmother other (heart disease) Maternal Grandfather Cancer Paternal Grandmother mid 50's. SOCIAL HISTORY: Social History Tobacco Use Smoking status: Never Smokeless tobacco: Never Vaping Use Vaping status: Never Used Substance Use Topics Alcohol use: Yes Alcohol/week: 1.0 standard drink of alcohol Types: 1 Glasses of wine per week Comment: occasional glass of wine Drug use: Never PHYSICAL EXAM: BP 136/72 (BP Site: Right Arm, BP Position: Sitting, BP Cuff Size: Regular Adult) Pulse 68 Temp (!) 35.7 C (96.2 F) (Temporal Artery) Wt 82.3 kg (181 lb 6.4 oz) SpO2 99% BMI 26.79 kg/m Last 3 Encounter Wt Readings: Date: Wt: 08/31/2023 85.8 kg (189 lb 3.2 oz) 05/04/2023 84.8 kg (187 lb) 05/27/2022 81.6 kg (180 lb) General: Alert and oriented x3, no acute distress Eyes: Anicteric sclera. Extraocular movements are intact. Neck: supple, no cervical lymphadenopathy Thyroid: normal size, normal texture, no palpable nodules Lungs: Breathing unlabored on room air Heart regular rate and rhythm Musculoskeletal: Muscular strength intact, No joint swelling, deformity, or tenderness Neuro: Gait normal. 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 Endocrinology and Metabolism [place] [phone] documented in this encounter [facility] 04-12-2024 Note Patient Outreach (IN [facility]) DEANNE SÁNCHEZ ([id number]) 1960 F Date Time Provider Department 04/12/24 GRACE RO During your visit today, we recorded the following information about you: Allergies As of Date: 04/12/2024 Noted Allergy Reaction CORTISONE 09/25/2021 4 - Hives Comments: States it turns her legs purple. INFLUENZA VIRUS VACCINES 09/25/2021 4 - Hives Comments: States it turns her legs purple Date Reviewed: 03/02/2024 Reviewed by: Elodia Ugalde, RN - Fully Assessed Visit Diagnosis:Encounter for screening mammogram for breast cancer [Z12.31] Order(s):JUDITH ALEXIS [[id number]] Order #: [id number] FUTURE Prescriptions as of 04/17/2024 - levothyroxine (SYNTHROID) 25 mcg tablet Take 1 tablet by mouth once daily. - MULTIVITAMIN ORAL Take 1 tablet by mouth once daily. - ergocalciferol, vitamin D2, (VITAMIN D2 ORAL) Take 1 tablet by mouth once daily. - ascorbic acid (VITAMIN C ORAL) Take 1 tablet by mouth once daily. - ZINC ORAL Take 1 tablet by mouth once daily. - MEDICATION, NON-DATABASE Tumeric with herb Problem List As Of Date 04/12/2024 Noted Resolved Thumb joint stiffness [M25.649] 07/21/2022 Primary osteoarthritis of first carpometacarpal*07/21/2022 Osteopenia of multiple sites [M85.89] 06/14/2023 Encounter Status:Closed by MIGEL PRODUSER on 04/17/24 [facility] 03-02-2024 Instructions Dior Montoya MD - 03/02/2024 10:04 AM EDT Please continue the same dose of levothyroxine and repeat labs in Jun 2024, and follow up after documented in this encounter [facility] 03-02-2024 Note HNO ID: [id number] Author: DOIR MONTOYA MD Service: ? Author Type: Physician Type: Progress Notes Filed: 03/02/2024 12:54 Note Text: [facility] Follow up note CONSULTED BY: Haylee Watson APRN. [employer] My final recommendations will be communicated back to the requesting provider by way of shared Medical record or a letter via [place] mail History of present illness: Deanne Sánchez is a 63 year old female here to establish care for hypothyroidism. She was seen by chief design branch for non-itching lesions on skin (looks like scalds), for the last year, and antibodies were checked for diagnoses of [place]'s syndrome, which revealed high titers of TPO Thyroid labs were checked and due to symptoms, she was started on Levothyroxine 25 mcg daily, which she has been taking since October 2023. Labs done post initiation of medication are within normal. She denied any hypo or hyperthyroid symptoms today Family history: hypothyroidism in mother, one maternal cousin has hypothyroidism REVIEW OF SYSTEMS: As per HPI ALLERGIES: ALLERGIES Allergen Reactions Cortisone Hives States it turns her legs purple. Influenza Virus Vac* Hives States it turns her legs purple MEDICATIONS: Current Outpatient Medications on File Prior to Visit Medication Sig MULTIVITAMIN ORAL Take 1 tablet by mouth once daily. ergocalciferol, vitamin D2, (VITAMIN D2 ORAL) Take 1 tablet by mouth once daily. ascorbic acid (VITAMIN C ORAL) Take 1 tablet by mouth once daily. ZINC ORAL Take 1 tablet by mouth once daily. MEDICATION, NON-DATABASE Tumeric with herb (Patient not taking: Reported on 08/31/2023) No current facility-administered medications on file prior to visit. 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 - Tim [facility]ons PAST SURGICAL HISTORY: PAST SURGICAL HISTORY Procedure Laterality Date EXTRACTION ERUPTED TOOTH/EXR KNEE SURGERY HX Left meniscus THUMB RT Right 06/2021 FAMILY HISTORY: FAMILY HISTORY Problem Relation Age of Onset other (heart disease) Mother Hypothyroidism Mother other (type 2 diabetes) Mother cured herself Prostate Cancer Father other (back surgeries) Sister Cataract Sister other (knee surgery) Sister Ischemic Heart Disease Brother bypass other (kidney cancer) Brother Obesity Brother No Known Problems Brother other (heart disease) Maternal Grandmother other (heart disease) Maternal Grandfather Cancer Paternal Grandmother mid 50's. SOCIAL HISTORY: Social History Tobacco Use Smoking status: Never Smokeless tobacco: Never Vaping Use Vaping status: Never Used Substance Use Topics Alcohol use: Yes Alcohol/week: 1.0 standard drink of alcohol Types: 1 Glasses of wine per week Comment: occasional glass of wine Drug use: Never PHYSICAL EXAM: Pulse (!) 56 Resp 19 Ht 175.3 cm (5' 9) Wt 83 kg (183 lb) SpO2 98% BMI 27.02 kg/m? Last 3 Encounter Wt Readings: Date: Wt: 08/31/2023 85.8 kg (189 lb 3.2 oz) 05/04/2023 84.8 kg (187 lb) 05/27/2022 81.6 kg (180 lb) General: Alert and oriented x3, no acute distress Eyes: Anicteric sclera. Pupils are equally round. Extraocular movements are intact. Neck supple, no cervical lymphadenopathy Thyroid: normal size, normal texture, no palpable nodules Lungs: Breathing unlabored, clear to auscultation. No wheezing, rhonchi, rales Heart regular rate and rhythm, no murmer Musculoskeletal: Muscular strength intact, No joint swelling, deformity, or tenderness Neuro: Gait normal. Sensation grossly intact. 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: -Continue levothyroxine 25 mcg once daily -Appropriate method of taking medication reviewed - repeat labs in 3 to 4 months - adjust dose if needed pending results - she is not on any supplements at this time Follow up : 4 months with repeat labs Medical Decision Making: Problems: Moderate: 1+ chronic illnesses with change Data: Unique test result(s) reviewed: 2 Unique test(s) ordered: 2 Medical Decision Making Level: 4 - Moderate Dior Montoya MD Endocrinology Associate Staff [facility] Endocrinology and Metabolism [place] [phone] [facility] 03-02-2024 History of Presen t illness Narrative [facility] Follow up note CONSULTED BY: Haylee Watson APRN. [employer] My final recommendations will be communicated back to the requesting provider by way of shared Medical record or a letter via [place] mail History of present illness: Deanne Sánchez is a 63 year old female here to establish care for hypothyroidism. She was seen by chief design branch for non-itching lesions on skin (looks like scalds), for the last year, and antibodies were checked for diagnoses of Cali's syndrome, which revealed high titers of TPO Thyroid labs were checked and due to symptoms, she was started on Levothyroxine 25 mcg daily, which she has been taking since October 2023. Labs done post initiation of medication are within normal. She denied any hypo or hyperthyroid symptoms today Family history: hypothyroidism in mother, one maternal cousin has hypothyroidism REVIEW OF SYSTEMS: As per HPI ALLERGIES: ALLERGIES Allergen Reactions Cortisone Hives States it turns her legs purple. Influenza Virus Vac* Hives States it turns her legs purple MEDICATIONS: Current Outpatient Medications on File Prior to Visit Medication Sig MULTIVITAMIN ORAL Take 1 tablet by mouth once daily. ergocalciferol, vitamin D2, (VITAMIN D2 ORAL) Take 1 tablet by mouth once daily. ascorbic acid (VITAMIN C ORAL) Take 1 tablet by mouth once daily. ZINC ORAL Take 1 tablet by mouth once daily. MEDICATION, NON-DATABASE Tumeric with herb (Patient not taking: Reported on 08/31/2023) No current facility-administered medications on file prior to visit. 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 - [facility] PAST SURGICAL HISTORY: PAST SURGICAL HISTORY Procedure Laterality Date EXTRACTION ERUPTED TOOTH/EXR KNEE SURGERY HX Left meniscus THUMB RT Right 06/2021 FAMILY HISTORY: FAMILY HISTORY Problem Relation Age of Onset other (heart disease) Mother Hypothyroidism Mother other (type 2 diabetes) Mother cured herself Prostate Cancer Father other (back surgeries) Sister Cataract Sister other (knee surgery) Sister Ischemic Heart Disease Brother bypass other (kidney cancer) Brother Obesity Brother No Known Problems Brother other (heart disease) Maternal Grandmother other (heart disease) Maternal Grandfather Cancer Paternal Grandmother mid 50's. SOCIAL HISTORY: Social History Tobacco Use Smoking status: Never Smokeless tobacco: Never Vaping Use Vaping status: Never Used Substance Use Topics Alcohol use: Yes Alcohol/week: 1.0 standard drink of alcohol Types: 1 Glasses of wine per week Comment: occasional glass of wine Drug use: Never PHYSICAL EXAM: Pulse (!) 56 Resp 19 Ht 175.3 cm (5' 9) Wt 83 kg (183 lb) SpO2 98% BMI 27.02 kg/m Last 3 Encounter Wt Readings: Date: Wt: 08/31/2023 85.8 kg (189 lb 3.2 oz) 05/04/2023 84.8 kg (187 lb) 05/27/2022 81.6 kg (180 lb) General: Alert and oriented x3, no acute distress Eyes: Anicteric sclera. Pupils are equally round. Extraocular movements are intact. Neck supple, no cervical lymphadenopathy Thyroid: normal size, normal texture, no palpable nodules Lungs: Breathing unlabored, clear to auscultation. No wheezing, rhonchi, rales Heart regular rate and rhythm, no murmer Musculoskeletal: Muscular strength intact, No joint swelling, deformity, or tenderness Neuro: Gait normal. Sensation grossly intact. 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 Endocrinology and Metabolism [place] [phone] documented in this encounter [facility] 08-31-2023 Instructions Dior Montoya MD - 08/31/2023 1:37 PM EDT Take levothyroxine 25 mcg daily on empty stomach (first thing in the morning), give atleast 45 mins to 1 hr before you take any medications, food or fluids other than water. If taking calcium or iron or multivitamin, please wait atleast 4 hours after taking your thyroid medication. Wait atleast 2 hours after taking your thyroid medication, to take prilosec or protonix documented in this encounter [facility] 08-31-2023 Note HNO ID: [id number] Author: DIOR MONTOYA MD Service: ? Author Type: Physician Type: Progress Notes Filed: 08/31/2023 19:48 Note Text: [facility] Initial Clinic Visit Note CONSULTED BY: Haylee Watson APRN. [employer] My final recommendations will be communicated back to the requesting provider by way of shared Medical record or a letter via [place] mail Subjective: Deanne Sánchez is a 63 year old female here to establish care for hypothyroidism. She was seen by chief design branch for non-itching lesions on skin (looks like scalds), for the last year, and antibodies were checked for diagnoses of [place]'s syndrome, which revealed high titers of TPO General symptoms: Fatigue: for the last 2 years Weight change: gained about 20 lbs in 2 years Appetite change: always hungry Menstrual irregularities: menopause Change in bowel habits: constipation but now better for the last month Temperature intolerance: always cold Dry skin, dry eyes, thinning hair for one year- steroid cream did not work Nails breaking - for the last one year Family history: hypothyroidism in mother, one maternal cousin has hypothyroidism REVIEW OF SYSTEMS: As per HPI ALLERGIES: ALLERGIES Allergen Reactions Cortisone Hives States it turns her legs purple. Influenza Virus Vac* Hives States it turns her legs purple MEDICATIONS: Current Outpatient Medications on File Prior to Visit Medication Sig MULTIVITAMIN ORAL Take 1 tablet by mouth once daily. ergocalciferol, vitamin D2, (VITAMIN D2 ORAL) Take 1 tablet by mouth once daily. ascorbic acid (VITAMIN C ORAL) Take 1 tablet by mouth once daily. ZINC ORAL Take 1 tablet by mouth once daily. MEDICATION, NON-DATABASE Tumeric with herb (Patient not taking: Reported on 08/31/2023) No current facility-administered medications on file prior to visit. 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 - [facility] PAST SURGICAL HISTORY: PAST SURGICAL HISTORY Procedure Laterality Date EXTRACTION ERUPTED TOOTH/EXR KNEE SURGERY HX Left meniscus THUMB RT Right 06/2021 FAMILY HISTORY: FAMILY HISTORY Problem Relation Age of Onset other (heart disease) Mother Hypothyroidism Mother other (type 2 diabetes) Mother cured herself Prostate Cancer Father other (back surgeries) Sister Cataract Sister other (knee surgery) Sister Ischemic Heart Disease Brother bypass other (kidney cancer) Brother Obesity Brother No Known Problems Brother other (heart disease) Maternal Grandmother other (heart disease) Maternal Grandfather Cancer Paternal Grandmother mid 50's. SOCIAL HISTORY: Social History Tobacco Use Smoking status: Never Smokeless tobacco: Never Vaping Use Vaping Use: Never used Substance Use Topics Alcohol use: Yes Alcohol/week: 1.0 standard drink of alcohol Types: 1 Glasses of wine per week Comment: occasional glass of wine Drug use: Never PHYSICAL EXAM: BP 128/86 (BP Site: Right Arm, BP Position: Sitting, BP Cuff Size: Regular Adult) Pulse 63 Resp 18 Ht 175.3 cm (5' 9) Wt 85.8 kg (189 lb 3.2 oz) SpO2 97% BMI 27.94 kg/m? Last 3 Encounter Wt Readings: Date: Wt: 08/31/2023 85.8 kg (189 lb 3.2 oz) 05/04/2023 84.8 kg (187 lb) 05/27/2022 81.6 kg (180 lb) General: Alert and oriented x3, no acute distress Eyes: Anicteric sclera. Pupils are equally round. Extraocular movements are intact. Neck supple, no cervical lymphadenopathy Thyroid: normal size, normal texture, no palpable nodules Lungs: Breathing unlabored, clear to auscultation. No wheezing, rhonchi, rales Heart regular rate and rhythm, no murmer Musculoskeletal: Muscular strength intact, No joint swelling, deformity, or tenderness Neuro: Gait normal. Sensation grossly intact. 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 thyroiditis: -Pathophysiology explained, and possible need for increasing doses of levothyroxine in coming years due to increasing dysfunction of the thyroid gland due to effect of antibodies -Reviewed initiation of treatment with low-dose thyroid hormone supplement due to presence of symptoms -Start levothyroxine 25 mcg once daily -Appropriate method of taking medication reviewed -Repeat labs in 6 to 8 weeks from now to check adequacy of the dose, will adjust dose as needed once labs are reviewed Follow up : 6 months with repeat labs Medical Decision Making: Problems: Moderate: New problem with uncertain prognosis Data: Unique (more content not included)... [facility] 08-31-2023 History of Presen t illness Narrative [facility] Initial Clinic Visit Note CONSULTED BY: Haylee Watson APRN. MADELINE My final recommendations will be communicated back to the requesting provider by way of shared Medical record or a letter via [place] mail Subjective: Deanne Sánchez is a 63 year old female here to establish care for hypothyroidism. She was seen by chief design branch for non-itching lesions on skin (looks like scalds), for the last year, and antibodies were checked for diagnoses of Cali's syndrome, which revealed high titers of TPO General symptoms: Fatigue: for the last 2 years Weight change: gained about 20 lbs in 2 years Appetite change: always hungry Menstrual irregularities: menopause Change in bowel habits: constipation but now better for the last month Temperature intolerance: always cold Dry skin, dry eyes, thinning hair for one year- steroid cream did not work Nails breaking - for the last one year Family history: hypothyroidism in mother, one maternal cousin has hypothyroidism REVIEW OF SYSTEMS: As per HPI ALLERGIES: ALLERGIES Allergen Reactions Cortisone Hives States it turns her legs purple. Influenza Virus Vac* Hives States it turns her legs purple MEDICATIONS: Current Outpatient Medications on File Prior to Visit Medication Sig MULTIVITAMIN ORAL Take 1 tablet by mouth once daily. ergocalciferol, vitamin D2, (VITAMIN D2 ORAL) Take 1 tablet by mouth once daily. ascorbic acid (VITAMIN C ORAL) Take 1 tablet by mouth once daily. ZINC ORAL Take 1 tablet by mouth once daily. MEDICATION, NON-DATABASE Tumeric with herb (Patient not taking: Reported on 08/31/2023) No current facility-administered medications on file prior to visit. 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 - [facility] PAST SURGICAL HISTORY: PAST SURGICAL HISTORY Procedure Laterality Date EXTRACTION ERUPTED TOOTH/EXR KNEE SURGERY HX Left meniscus THUMB RT Right 06/2021 FAMILY HISTORY: FAMILY HISTORY Problem Relation Age of Onset other (heart disease) Mother Hypothyroidism Mother other (type 2 diabetes) Mother cured herself Prostate Cancer Father other (back surgeries) Sister Cataract Sister other (knee surgery) Sister Ischemic Heart Disease Brother bypass other (kidney cancer) Brother Obesity Brother No Known Problems Brother other (heart disease) Maternal Grandmother other (heart disease) Maternal Grandfather Cancer Paternal Grandmother mid 50's. SOCIAL HISTORY: Social History Tobacco Use Smoking status: Never Smokeless tobacco: Never Vaping Use Vaping Use: Never used Substance Use Topics Alcohol use: Yes Alcohol/week: 1.0 standard drink of alcohol Types: 1 Glasses of wine per week Comment: occasional glass of wine Drug use: Never PHYSICAL EXAM: BP 128/86 (BP Site: Right Arm, BP Position: Sitting, BP Cuff Size: Regular Adult) Pulse 63 Resp 18 Ht 175.3 cm (5' 9) Wt 85.8 kg (189 lb 3.2 oz) SpO2 97% BMI 27.94 kg/m Last 3 Encounter Wt Readings: Date: Wt: 08/31/2023 85.8 kg (189 lb 3.2 oz) 05/04/2023 84.8 kg (187 lb) 05/27/2022 81.6 kg (180 lb) General: Alert and oriented x3, no acute distress Eyes: Anicteric sclera. Pupils are equally round. Extraocular movements are intact. Neck supple, no cervical lymphadenopathy Thyroid: normal size, normal texture, no palpable nodules Lungs: Breathing unlabored, clear to auscultation. No wheezing, rhonchi, rales Heart regular rate and rhythm, no murmer Musculoskeletal: Muscular strength intact, No joint swelling, deformity, or tenderness Neuro: Gait normal. Sensation grossly intact. 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 thyroiditis: -Pathophysiology explained, and possible need for increasing doses of levothyroxine in coming years due to increasing dysfunction of the thyroid gland due to effect of antibodies -Reviewed initiation of treatment with low-dose thyroid hormone supplement due to presence of symptoms -Start levothyroxine 25 mcg once daily -Appropriate method of taking medication reviewed -Repeat labs in 6 to 8 weeks from now to check adequacy of the dose, will adjust dose as needed once labs are reviewed Follow up : 6 months with repeat labs Medical Decision Making: Problems: Moderate: New problem with uncertain prognosis Data: Unique source(s) for external note(s) reviewed: 1 Unique test result(s) reviewed: 3+ Unique test(s) ordered: 2 Independent interpretation of test from other physician/QHCP Risk: Moderate: Drug management Medical Decision Making Level: 4 - Moderate Dior Montoya MD Endocrinology Associate Staff [facility] Endocrinology and Metabolism [place] [phone] documented in this encounter [facility] 07-23-2023 Miscellaneous Notes Labs faxed to Dr Ahmadi Grace had ordered. It looks like Dr Cai office wanted these. Fax to them. Let her know it looks borderline. We usually do not treat at this point but will send them over. documented in this encounter [facility] 07-20-2023 Miscellaneous Notes Noted. Grace Ro APRN.MADELINE' Shaina from, [facility] calling received referral and Dr Ahmadi would see her if thyroid labs were placed for patient to get done. Aware orders are in computer for patient to complete. She is calling patient to remind her to get thyroid labs done soon. No appt scheduled with Dr Ahmadi as yet. documented in this encounter [facility] 08-04-2022 Note HNO ID: [id number] Author: Veronica Mohamud OT/Sylvia Service: ? Author Type: Occupational Therapist Type: Progress Notes Filed: 02/12/2023 10:59 AM Note Text: 02/12/2023 REHABILITATION AND SPORTS THERAPY OCCUPATIONAL THERAPY DISCONTINUANCE OF CARE Plan of Care Period: Start of Care Date: 06/23/22 Last Visit Date: 08/04/2022 Therapy Program: The following is a summary of the interventions provided for this episode of care; Therapeutic exercise and Self-group home management Assessment: Based on most recent visit, patient was progressing as expected toward functional goals based on documented subjective information on progress. Unable to formally assess goal achievement due to non-compliance with therapy plan of care. Reason for Discontinuation of Care: Patient has not returned to therapy or scheduled additional follow-up appointments. Veronica Mohamud OT/L Episode Visit Count: 4 Therapist That Will Accept/Oversee The Plan Of Care: Semaj Martin Start of Care Date: 06/23/22 Onset Date: 06/10/22 Patient Identified by Name and Date of : Yes REHABILITATION AND SPORTS THERAPY OCCUPATIONAL THERAPY TREATMENT NOTE ASSESSMENT: Deanne Sánchez tolerated the session with no issues. She demonstrated improvements in motion . The patient will continue to benefit from ongoing skilled occupational therapy to progress toward set goals. PLAN FOR NEXT VISIT: add wrist exercises with weight CMC isometrics anticipate discharge SUBJECTIVE: reports hand is bothering her more she has been using it a lot more for pruning knitting Pain: Pain Pain Level: 0 OBJECTIVE MEASURES WITH LEVEL OF FUNCTION: Hand Strength: Train Electronic Technician Position 2, Pinch Meter Hand Strength R Train Electronic Technician Position 2 (lbs): 36 lbs L Train Electronic Technician Position 2 (lbs): 64 lbs R Lateral Pinch (lbs): 7 lbs R Tripod/ 3 Jaw Benjamin (lbs): 4 lbs R Tip Pinch (lbs): 4 lbs L Lateral Pinch (lbs): 12 lbs L Tripod/ 3 Jaw Benjamin (lbs): 12 lbs L Tip Pinch (lbs): 11.5 lbs UE AROM R Wrist Extension: 70 Degrees R Wrist Flexion: 65 Degrees Hand AROM R Thumb MP Flexion : 48 Degrees R Thumb IP Flexion : 45 Degrees R Thumb Radial Abduction: 65 Degrees R Thumb Palmar Abduction: 70 Degrees TREATMENT: Therapeutic Exercise: 1: objective measurements taken and discussed with patient 2: educated on use of splinting moving forward introduced comfort cool 3: reviewed scar massage 4: with medium red putty collection systems administrator digit extension abduction push, thumb flex ext and tripod pinch Skilled Intervention: Patient was educated in proper exercise technique and purpose for exercises. Skilled judgment was provided in selection of appropriate interventions. Billing Therapeutic Exercise Treatment Minutes: 35 Veronica Mhoamud OT/L [facility] 08-04-2022 History of Presen t illness Narrative Episode Visit Count: 4 Therapist That Will Accept/Oversee The Plan Of Care: Semaj Martin Start of Care Date: 06/23/22 Onset Date: 06/10/22 Patient Identified by Name and Date of : Yes REHABILITATION AND SPORTS THERAPY OCCUPATIONAL THERAPY TREATMENT NOTE ASSESSMENT: Deanne Sánchez tolerated the session with no issues. She demonstrated improvements in motion . The patient will continue to benefit from ongoing skilled occupational therapy to progress toward set goals. PLAN FOR NEXT VISIT: add wrist exercises with weight CMC isometrics anticipate discharge SUBJECTIVE: reports hand is bothering her more she has been using it a lot more for pruning knitting Pain: Pain Pain Level: 0 OBJECTIVE MEASURES WITH LEVEL OF FUNCTION: Hand Strength: Train Electronic Technician Position 2, Pinch Meter Hand Strength R Train Electronic Technician Position 2 (lbs): 36 lbs L Train Electronic Technician Position 2 (lbs): 64 lbs R Lateral Pinch (lbs): 7 lbs R Tripod/ 3 Jaw Benjamin (lbs): 4 lbs R Tip Pinch (lbs): 4 lbs L Lateral Pinch (lbs): 12 lbs L Tripod/ 3 Jaw Benjamin (lbs): 12 lbs L Tip Pinch (lbs): 11.5 lbs UE AROM R Wrist Extension: 70 Degrees R Wrist Flexion: 65 Degrees Hand AROM R Thumb MP Flexion : 48 Degrees R Thumb IP Flexion : 45 Degrees R Thumb Radial Abduction: 65 Degrees R Thumb Palmar Abduction: 70 Degrees TREATMENT: Therapeutic Exercise: 1: objective measurements taken and discussed with patient 2: educated on use of splinting moving forward introduced comfort cool 3: reviewed scar massage 4: with medium red putty collection systems administrator digit extension abduction push, thumb flex ext and tripod pinch Skilled Intervention: Patient was educated in proper exercise technique and purpose for exercises. Skilled judgment was provided in selection of appropriate interventions. Billing Therapeutic Exercise Treatment Minutes: 35 Veronica Mohamud OT/L documented in this encounter [facility] 07-21-2022 Note HNO ID: [id number] Author: SCOTT Ruiz Service: ? Author Type: Occupational Therapist Type: Progress Notes Filed: 07/21/2022 9:58 AM Note Text: Episode Visit Count: 3 Therapist That Will Accept/Oversee The Plan Of Care: Semaj Martin Start of Care Date: 06/23/22 Onset Date: 06/10/22 Patient Identified by Name and Date of : YesCurrent Surgical Procedure: CMC arythroplasty Current Surgical Procedure Date: 06/10/22 REHABILITATION AND SPORTS THERAPY OCCUPATIONAL THERAPY TREATMENT NOTE ASSESSMENT: Deanne Sánchez tolerated the session with no issues. She demonstrated improvements in ROM. The patient will continue to benefit from ongoing skilled occupational therapy to progress toward set goals. PLAN FOR NEXT VISIT: progress functional use, strengthening, weightbearing, maybe neoprene comfort cool rojas dbased splint SUBJECTIVE: pt reports mostly stiffness now Pain: Pain Pain Level: 0 Post Treatment Pain Post Treatment Pain Level: No Change Post Treatment Symptoms: less feeling of stiffness OBJECTIVE MEASURES WITH LEVEL OF FUNCTION: Hand Wrist AROM: Right Limitation Thumb AROM: Right Limitation UE AROM R Wrist Extension: 58 Degrees R Wrist Flexion: 60 Degrees Thumb AROM: Right Limitation Hand AROM R Thumb MP Flexion : 48 Degrees R Thumb IP Flexion : 45 Degrees R Thumb Radial Abduction: 50 Degrees R Thumb Palmar Abduction: 55 Degrees R Thumb Opposition (Functional): intact to pinky TREATMENT: Therapeutic Exercise: 1: adjusted hand based CMC splint 2: *MH to Rt hand under OT supervision educate din technjared benefits for home use especially AM and pre ROM ex and scar massage dsicussed concerns 3: scar massage 3 minutes 4: thumb AROM all planes 5: *gentle PROm thumb MP jt w/CMC jt stabilized 6: wrist AROM all planes 7: *thumb dexterity ex with in hand ball manipulation 8: * thumb dexterity and strengthening with pen flipping and walking up/down pen 9: * gentle wrist flexor stretch with gentle standing dusting thumb off edge of table x 1 min 10: * initiated activity modification and jt protection ed for thumb CMC jt protection 11: * reviwed initiation of weigh training so pt can return to this activity instructed to use hand splint and limit to 3# at this time ( no kettle balls) use light grasp, keep wrist straight and no wrist curls 12: * educated in dosag eof exercises Skilled Intervention: Patient was educated in proper exercise technique and purpose for exercises. Reviewed and educated patient on additions/changes for home exercise program as above (*). Skilled judgment was provided in selection of appropriate interventions. Provided written instruction for home exercise program to facilitate proper performance and compliance. Billing Therapeutic Exercise Treatment Minutes: 40 Total Treatment Time Minutes (timed/untimed): 40 Iman Sinha OT/L [facility] 07-21-2022 History of Presen t illness Narrative Episode Visit Count: 3 Therapist That Will Accept/Oversee The Plan Of Care: Semaj Start of Care Date: 06/23/22 Onset Date: 06/10/22 Patient Identified by Name and Date of : YesCurrent Surgical Procedure: CMC arythroplasty Current Surgical Procedure Date: 06/10/22 REHABILITATION AND SPORTS THERAPY OCCUPATIONAL THERAPY TREATMENT NOTE ASSESSMENT: Deanne Sánchez tolerated the session with no issues. She demonstrated improvements in ROM. The patient will continue to benefit from ongoing skilled occupational therapy to progress toward set goals. PLAN FOR NEXT VISIT: progress functional use, strengthening, weightbearing, maybe neoprene comfort cool rojas dbased splint SUBJECTIVE: pt reports mostly stiffness now Pain: Pain Pain Level: 0 Post Treatment Pain Post Treatment Pain Level: No Change Post Treatment Symptoms: less feeling of stiffness OBJECTIVE MEASURES WITH LEVEL OF FUNCTION: Hand Wrist AROM: Right Limitation Thumb AROM: Right Limitation UE AROM R Wrist Extension: 58 Degrees R Wrist Flexion: 60 Degrees Thumb AROM: Right Limitation Hand AROM R Thumb MP Flexion : 48 Degrees R Thumb IP Flexion : 45 Degrees R Thumb Radial Abduction: 50 Degrees R Thumb Palmar Abduction: 55 Degrees R Thumb Opposition (Functional): intact to pinky TREATMENT: Therapeutic Exercise: 1: adjusted hand based CMC splint 2: *MH to Rt hand under OT supervision educate din techniqie benefits for home use especially AM and pre ROM ex and scar massage dsicussed concerns 3: scar massage 3 minutes 4: thumb AROM all planes 5: *gentle PROm thumb MP jt w/CMC jt stabilized 6: wrist AROM all planes 7: *thumb dexterity ex with in hand ball manipulation 8: * thumb dexterity and strengthening with pen flipping and walking up/down pen 9: * gentle wrist flexor stretch with gentle standing dusting thumb off edge of table x 1 min 10: * initiated activity modification and jt protection ed for thumb CMC jt protection 11: * reviwed initiation of weigh training so pt can return to this activity instructed to use hand splint and limit to 3# at this time ( no kettle balls) use light grasp, keep wrist straight and no wrist curls 12: * educated in dosag eof exercises Skilled Intervention: Patient was educated in proper exercise technique and purpose for exercises. Reviewed and educated patient on additions/changes for home exercise program as above (*). Skilled judgment was provided in selection of appropriate interventions. Provided written instruction for home exercise program to facilitate proper performance and compliance. Billing Therapeutic Exercise Treatment Minutes: 40 Total Treatment Time Minutes (timed/untimed): 40 SCOTT Ruiz documented in this encounter [facility] 07-13-2022 History of Presen t illness Narrative Galo Warren MD Department of Orthopaedics Orthopaedics [address] [facility] [address] Dept: [phone] Dept July 13, 2022 CHIEF COMPLAINT: Post Op of the Right Hand and 4 weeks 5 days post op Right thumb CMC arthroplasty with tr (and 1st dorsal compartment release ). HPI Patient here for post op 4 weeks 5 days post op Right thumb CMC arthroplasty with trapeziectomy and 1 st dorsal compartment release. Denies any pain but she is still having some stiffness. Continuing OT and home exercises. X-rays done today. ASSESSMENT: M79.644 Thumb pain, right (primary encounter diagnosis) SUMMARY/PLAN: 5 weeks postop and doing quite well. She will continue her occupational get her into the hand-based thumb splint. We will see her back in 1 month. Exam: Excellent contour of the hand. No significant swelling. Neurovascular exam intact. Imaging: IMPRESSION: Interval resection of trapezium. Stable degenerative findings. Photogrammetric Stereo Compiler: ROB Transcribe Date/Time: Jul 16 2022 8:28A Dictated by : PENNY MARTEL MD This examination was interpreted and the report reviewed and electronically signed by: PENNY MARTEL MD on Jul 16 2022 8:31AM EST Results-Findings * * *Final Report* * * DATE OF EXAM: Jul 13 2022 12:39PM [id number] [id number] - XR HAND 3V PA/LAT/OBL RT / PROCEDURE REASON: Primary osteoarthritis of first carpometacarpal joint of right hand * * * * Physician Interpretation * * * * Right hand HISTORY: 62 years old Clinical information: Primary osteoarthritis of first carpometacarpal joint of right hand Pt post surgery status, surgery done 5 weeks ago for arthritis of right thumb. TECHNIQUE: Images: XR HAND 3V PA/LAT/OBL RT Comparison: 09/25/2021. RESULT: Findings: There is spurring of the distal interphalangeal joints, IP joint, and first and second MCP joints. There is also mild spurring of proximal interphalangeal joints. Interval resection of the trapezium. Please delete a bony density by the IP joint. Stable cystic change on the ulna styloid. No subluxation. No fracture. Supporting Information Below: Medications: Current Outpatient Medications Medication Sig MULTIVITAMIN ORAL Take by mouth. ergocalciferol, vitamin D2, (VITAMIN D2 ORAL) Take by mouth. ascorbic acid (VITAMIN C ORAL) Take by mouth. ZINC ORAL Take by mouth. MEDICATION, NON-DATABASE Tumeric with herb No current facility-administered medications for this visit. Allergies: Cortisone and Influenza Virus Vaccines Galo Warren MD documented in this encounter [facility] 07-07-2022 Note HNO ID: [id number] Author: Veronica Mohamud OT/L Service: ? Author Type: Occupational Therapist Type: Progress Notes Filed: 07/07/2022 4:38 PM Note Text: Episode Visit Count: 2 Therapist That Will Accept/Oversee The Plan Of Care: Semaj Martin Start of Care Date: 06/23/22 Onset Date: 06/10/22 Patient Identified by Name and Date of : Yes REHABILITATION AND SPORTS THERAPY OCCUPATIONAL THERAPY TREATMENT NOTE ASSESSMENT: Deanne Sánchez tolerated the session with no issues. She demonstrated improvements in motion and strength. The patient will continue to benefit from ongoing skilled occupational therapy to progress toward set goals. PLAN FOR NEXT VISIT: weight exercises SUBJECTIVE: pt reports she has been trying to use her hand denies pain reports she is unable to pull up a zipper Pain: Pain Pain Level: 0 OBJECTIVE MEASURES WITH LEVEL OF FUNCTION: TREATMENT: Therapeutic Exercise: 1: adjusted forearm based splint 2: fabricated hand based thumb spica instructed in wear schedule and precautions 3: educated pt in weaning into hand based splint 4: reviewed scxar management 5: AROM Wrist and thumb all planes 6: soft sponge collection systems administrator manipulate and nut picker 7: sponge pieces nut picker Skilled Intervention: Patient was educated in proper exercise technique and purpose for exercises. Skilled judgment was provided in selection of appropriate interventions. Billing Therapeutic Exercise Treatment Minutes: 40 Total Treatment Time Minutes (timed/untimed): 50 Veronica Mohamud OT/Sylvia [facility] 07-07-2022 History of Presen t illness Narrative Episode Visit Count: 2 Therapist That Will Accept/Oversee The Plan Of Care: Semaj Martin Start of Care Date: 06/23/22 Onset Date: 06/10/22 Patient Identified by Name and Date of : Yes REHABILITATION AND SPORTS THERAPY OCCUPATIONAL THERAPY TREATMENT NOTE ASSESSMENT: Deanne Sánchez tolerated the session with no issues. She demonstrated improvements in motion and strength. The patient will continue to benefit from ongoing skilled occupational therapy to progress toward set goals. PLAN FOR NEXT VISIT: weight exercises SUBJECTIVE: pt reports she has been trying to use her hand denies pain reports she is unable to pull up a zipper Pain: Pain Pain Level: 0 OBJECTIVE MEASURES WITH LEVEL OF FUNCTION: TREATMENT: Therapeutic Exercise: 1: adjusted forearm based splint 2: fabricated hand based thumb spica instructed in wear schedule and precautions 3: educated pt in weaning into hand based splint 4: reviewed scxar management 5: AROM Wrist and thumb all planes 6: soft sponge collection systems administrator manipulate and nut picker 7: sponge pieces nut picker Skilled Intervention: Patient was educated in proper exercise technique and purpose for exercises. Skilled judgment was provided in selection of appropriate interventions. Billing Therapeutic Exercise Treatment Minutes: 40 Total Treatment Time Minutes (timed/untimed): 50 Veronica Mohamud OT/L documented in this encounter [facility] 06-23-2022 Note HNO ID: [id number] Author: Veronica Mohamud OT/L Service: ? Author Type: Occupational Therapist Type: Progress Notes Filed: 06/23/2022 5:44 PM Note Text: Episode Visit Count: 1 Therapist That Will Accept/Oversee The Plan Of Care: Semaj Martin Start of Care Date: 06/23/22 Onset Date: 06/10/22 Patient Identified by Name and Date of : Yes [facility]IL[facility]ATION AND SPORTS THERAPY OCCUPATIONAL THERAPY EVALUATION PLAN OF CARE: Assessment: Deanne Sánchez presents with diagnosis of post CMC arthroplasty that interferes with recreational activities;physical activities;weight bearing;gripping;pinching . She presents with impairments in range of motion and strength . PROMIS? (Patient-Reported Outcomes Measurement Information System) scores were reviewed and physical function domain identified as a rehabilitation concern. Prognosis for therapy is Good due to: current objective clinical presentation . She will benefit from skilled therapy services to meet the goals established for this plan of care as noted below. Goals for Episode of Care created on 06/23/22 through 09/11/22 Patient will report a good understanding of diagnosis and OT recommendations for progression of program. Patient will demonstrate independence with ongoing home recommendations/exercise program throughout therapy plan of care. Patient will improve function in Right wrist and hand in order to be able to perform prior functional tasks. Patient will independently demonstrate correct application of CUSTOM orthosis and verbalize understanding of proper wear/care. Patient will report a good understanding of edema control, scar / wound management throughout therapy plan of care to promote non-adherent / non-tender soft tissue. Patient Goals: to resume full function Planned Interventions, Frequency, and Duration: Current Frequency: 1x every other week Duration: 8 weeks Total Number of Visits Planned: 4 Planned Treatment Interventions: Custom orthosis fabrication;Prefabricated orthosis fitting;Therapeutic exercise (36830);Self-group home management ([id number]) PLAN FOR NEXT VISIT: formal thumb motion reduce splint in 2 weeks scar massage Patient demonstrates good understanding of plan of care and treatment. The above goals and plan of care were discussed and agreed upon by patient/family. 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1 (Very Good) 50.8 (Very Good) - GH Physical - Percentile 66 % 53 % - GH Mental - Score 53.3 (Very Good) 50.8 (Very Good) - GH Mental - Percentile 63 % 53 % - Self-Eff Symptom - Score - - 42 (Average) Self-Eff Symptom - Percentile - - 21 % T-scores: mean of general population = 50. 5 points is clinically meaningfully difference Percentiles provide an indication of how the patient's score ranks in relation to the general population. Higher percentile rankings indicate better function/quality of life. 50th percentile is the average of the general population and indicates half of respondents had a worse score. T-scores: mean of general population = 50. 5 points is clinically meaningfully difference Percentiles provide an indication of how the patient's score ranks in relation to the general population. Higher percentile rankings indicate better function/quality of life. 50th percentile is the average of the general population and indicates half of respondents had a worse score. OBJECTIVE MEASURES WITH LEVEL OF FUNCTION: Hand Skin / Wound: Sutures Wound Description: absorbable;Steri-strips Edema Location: right hand Edema Description: Mild Wrist AROM: Right Limitation Right Hand AROM: WFL Left Hand AROM: WFL Thumb AROM: Right Limitation Sensation: Denies tingling or numbness UE AROM R Wrist Extension: (more content not included)... [facility] 06-23-2022 History of Presen t illness Narrative Episode Visit Count: 1 Therapist That Will Accept/Oversee The Plan Of Care: Semaj Martin Start of Care Date: 06/23/22 Onset Date: 06/10/22 Patient Identified by Name and Date of : Yes [facility] OCCUPATIONAL THERAPY EVALUATION PLAN OF CARE: Assessment: Deanne Sánchez presents with diagnosis of post CMC arthroplasty that interferes with recreational activities;physical activities;weight bearing;gripping;pinching . She presents with impairments in range of motion and strength . PROMIS (Patient-Reported Outcomes Measurement Information System) scores were reviewed and physical function domain identified as a rehabilitation concern. Prognosis for therapy is Good due to: current objective clinical presentation . She will benefit from skilled therapy services to meet the goals established for this plan of care as noted below. Goals for Episode of Care created on 06/23/22 through 09/11/22 Patient will report a good understanding of diagnosis and OT recommendations for progression of program. Patient will demonstrate independence with ongoing home recommendations/exercise program throughout therapy plan of care. Patient will improve function in Right wrist and hand in order to be able to perform prior functional tasks. Patient will independently demonstrate correct application of CUSTOM orthosis and verbalize understanding of proper wear/care. Patient will report a good understanding of edema control, scar / wound management throughout therapy plan of care to promote non-adherent / non-tender soft tissue. Patient Goals: to resume full function Planned Interventions, Frequency, and Duration: Current Frequency: 1x every other week Duration: 8 weeks Total Number of Visits Planned: 4 Planned Treatment Interventions: Custom orthosis fabrication;Prefabricated orthosis fitting;Therapeutic exercise ([id number]);Self-group home management ([id number]) PLAN FOR NEXT VISIT: formal thumb motion reduce splint in 2 weeks scar massage Patient demonstrates good understanding of plan of care and treatment. The above goals and plan of care were discussed and agreed upon by patient/family. 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1 (Very Good) 50.8 (Very Good) - GH Physical - Percentile 66 % 53 % - GH Mental - Score 53.3 (Very Good) 50.8 (Very Good) - GH Mental - Percentile 63 % 53 % - Self-Eff Symptom - Score - - 42 (Average) Self-Eff Symptom - Percentile - - 21 % T-scores: mean of general population = 50. 5 points is clinically meaningfully difference Percentiles provide an indication of how the patient's score ranks in relation to the general population. Higher percentile rankings indicate better function/quality of life. 50th percentile is the average of the general population and indicates half of respondents had a worse score. T-scores: mean of general population = 50. 5 points is clinically meaningfully difference Percentiles provide an indication of how the patient's score ranks in relation to the general population. Higher percentile rankings indicate better function/quality of life. 50th percentile is the average of the general population and indicates half of respondents had a worse score. OBJECTIVE MEASURES WITH LEVEL OF FUNCTION: Hand Skin / Wound: Sutures Wound Description: absorbable;Steri-strips Edema Location: right hand Edema Description: Mild Wrist AROM: Right Limitation Right Hand AROM: WFL Left Hand AROM: WFL Thumb AROM: Right Limitation Sensation: Denies tingling or numbness UE AROM R Wrist Extension: 50 Degrees R Wrist Flexion: 45 Degrees R Wrist Radial Deviation: 10 Degrees R Wrist Ulnar Deviation: 10 Degrees Right Hand AROM: WFL Left Hand AROM: WFL Thumb AROM: Right Limitation Hand AROM R Thumb MP Flexion : 40 Degrees R Thumb IP Flexion : 14 Degrees R Thumb Radial Abduction: 50 Degrees R Thumb Palmar Abduction: 50 Degrees Education: Education Learning Preferences: Demonstration;Explanation;Perfor bekah;Printed Materials Barriers: None Learning/educational needs: Home exercise program;Plan of Care;Brace Fit Education Provided: Yes, see treatment interventions for education provided Education Provided To: Patient Education Mode/Type: Demonstration;Explanation/Discus magan;Literature/Printed Materials Response to Education/Teach Back: States/Identifies;Return Demonstration;Requires Review/Additional Education TREATMENT: OT Treatment Interventions : Therapeutic Exercise;Self-Fpc Management;Custom Orthosis/Splint Fabrication Evaluation Evaluation Therapeutic Exercise: 1: fabricated forearm based thumb spica splint instructed in weqar schedule and precautions 2: wrist flex ext dev and circumduction 3: thumb opposition ancd circumduction Skilled Intervention: Patient was educated in proper exercise technique and purpose for exercises. Skilled judgment was provided in selection of appropriate interventions. Self-Fpc Management: 1: educated in surgery and healing 2: instructed in post op precautions 3: educated in use of ice with precautions Skilled Intervention: Skilled judgment in the selection of proper modification for activity of daily living/home management based on clinical presentation, deficits, and needs. Provided written instruction for activities of daily living techniques to facilitate proper performance and compliance. Custom orthosis: L 3808 WHFO w/out joints (long opponens, thumb spica, intrinsic gutter, resting, anti-spasticity, EXOS, dorsal block) Custom orthosis to provide Pt practiced orthosis application, donning on/off while under OT's supervision. and to promote healing. Patient was instructed in care of orthosis and wearing schedule safety companion except when exercising / bathing. . Skilled Intervention: Clinical knowledge and skills required for custom orthotic fabrication and wearing schedule Billing * Evaluation Moderate Complexity: 1 Unit Therapeutic Exercise Treatment Minutes: 20 Self-Care/Home Management Treatment Minutes: 10 * L 3808 WHFO w/out joints (long opponens, thumb spica, intrinsic gutter, resting, anti-spasticity, EXOS, dorsal block) Quantity: 1 Total Treatment Time Minutes (timed/untimed): 45 Veronica Mohamud OT/Sylvia documented in this encounter [facility] 06-23-2022 History of Presen t illness Narrative Galo Warren MD Department of Orthopaedics Orthopaedics [address] [place] [id number] Dept: [phone] June 23, 2022 CHIEF COMPLAINT: Established Patient and Post Op of the Right Hand. HPI Patient here today 1 week 6 days post op Right thumb, carpometacarpal joint arthroplasty with trapeziectomy and right 1st dorsal compartment release. Patient denies any pain. ASSESSMENT: M18.11 Primary osteoarthritis of first carpometacarpal joint of right hand (primary encounter diagnosis) SUMMARY/PLAN: 2 weeks after CMC. She is doing very well and everything looks great. We will get her in with occupational. Exam: Appropriate incision, neurovascular exam intact. Supporting Information Below: Medications: Current Outpatient Medications Medication Sig MULTIVITAMIN ORAL Take by mouth. ergocalciferol, vitamin D2, (VITAMIN D2 ORAL) Take by mouth. ascorbic acid (VITAMIN C ORAL) Take by mouth. ZINC ORAL Take by mouth. MEDICATION, NON-DATABASE Tumeric with herb No current facility-administered medications for this visit. Allergies: Cortisone and Influenza Virus Vaccines Galo Warren MD documented in this encounter [facility] 06-12-2022 Miscellaneous Notes See telephone encounter. I spoke with patient. documented in this encounter [facility] 06-12-2022 Miscellaneous Notes I called and spoke with patient. Explained that she needs to have OT and there is no OT in [place]. Appointment is scheduled at [facility] with OT to follow because they make a splint for patient. Patient verbalized understanding and will keep appointment as scheduled. Patient called requesting to move some of her appointments from [facility] to [place]. Unable to find times through . Please advise. documented in this encounter [facility] 06-10-2022 Note HNO ID: [id number] Author: Freda Hernandez MD Service: Anesthesiology Author Type: Anesthesiologist Type: Anesthesia Procedure Notes Filed: 06/10/2022 9:55 AM Note Text: ANESTHESIOLOGY PROCEDURE NOTE Peripheral Nerve Block General Information Procedure Start Time/Medication Administration: 06/10/2022 9:48 AM Procedure End time: 06/10/2022 9:53 AM Patient location during procedure: induction room Timeout Performed Pre-procedure: timeout performed Consent Obtained: Yes Patient identity confirmed: arm band and patient Reason for block: post-op pain management/at surgeon's request Staffing Anesthesiologist: Freda Hernandez MD Preparation Sterility Preparation: hand hygiene performed prior to procedure, sterile gloves, drapes, and procedure tray, surgical cap used, mask used, sterile drape used during line insertion, skin prep agent completely dried prior to procedure Site Prep: Chloraprep Pre-Procedure Neuro Exam Location: RUE Sensory: intact Motor: intact Procedure Details Patient Position: sitting Monitoring: Pulse OX, EKG and NIBP Block Type Approach: supraclavicular Laterality: right Injection Technique: single-shot Ultrasound Guided: Yes Image in Chart: yes Local Infiltration: Yes Needle Needle Type: echogenic Needle Gauge: 22 G Needle Localization: ultrasound Assessment Injection assessment: negative aspiration and local visualized surrounding nerve on ultrasound Post-Procedure Neuro Exam Expected Regional Anesthesia: Yes Medications Administered ropivacaine (PF) 5 mg/mL (0.5 %) injection (NAROPIN) - peripheral nerve block 15 mL - 06/10/2022 9:48:00 AM lidocaine 100 mg/5 mL (2 %) IV syringe - INTRAVENOUS 5 mL - 06/10/2022 9:48:00 AM SIGNATURE: Freda Hernandez MD PATIENT NAME: Deanne Sánchez DATE: June 10, 2022 TIME: 9:54 AM CSN: [id number] [facility] 05-27-2022 Instructions Haylee León APRN.CNP - 05/27/2022 2:32 PM EST PATIENT PREOPERATIVE INSTRUCTIONS Galo Warren MD has scheduled you for your procedure at this surgery center: [facility]: [phone] -- [address] [facility] [address]. Please read below carefully for your personalized instructions. Dietary Restrictions: - No solid food after midnight. - You may have 12 ounces of clear liquids (water, clear juices such as apple juice or gatorade, carbonated beverages, clear tea, black coffee, jello) until 2 hours before scheduled arrival at facility. Medications: Unless instructed differently below, stay on all of your medications until your surgery. Approved medications to take the morning of surgery with a sip of water: NONE - Your pain medication may cause thinning of your blood. Please see directions for Blood Thinning Medications. - No diabetic medication the morning of surgery. If you start any new medications after today's visit, please contact the surgeon's office. Blood Thinning Medications: - Stop NSAIDS (Ibuprofen, Advil, Aleve, Motrin, Celebrex, Mobic, etc.) 7 days before surgery, as directed by your surgeon. - Stop Aspirin 7 days before surgery, as directed by your surgeon. - Stop Vitamin E, ALL multi-vitamins, herbals and dietary supplements 7 days before surgery. - You may take Tylenol (Acetaminophen) or any of your pain medications that do not contain aspirin or NSAIDS as needed. Important Reminders: - If you use CPAP/BIPAP, bring the machine with you to the surgery center. - If you are prescribed inhalers for breathing, continue using them. - Candy, mints, and tobacco products are NOT permitted the morning of surgery. - Hearing aids, dentures and glasses may be worn the morning of surgery. - NO jewelry, body piercings, makeup, hairpins or contacts are to be worn the day of surgery. If you develop symptoms such as a fever, cold, or flu, or have other changes to your health within TWO DAYS of scheduled surgery or the morning of surgery, please contact the surgery center above. Personal Belongings: -Please have photo ID and insurance cards. -If you do not have a copy of advance directives on file with us, please bring a copy with you on the day of surgery. - Leave ALL valuables and money at home or with family members. For Outpatient Procedures: - YOU MUST HAVE A RESPONSIBLE APPLICATION DEVELOPMENT SPECIALIST TAKE YOU HOME. A ENTERPRISE CLOUD ARCHITECT OR JACKHAMMER SPLITTER OPERATOR CANNOT BE MADE A RESPONSIBLE APPLICATION DEVELOPMENT SPECIALIST. - We recommend that a responsible person stays with you overnight to take care of you. - You cannot stay in a hotel alone after outpatient surgery. You will not be permitted to have your surgery, if you do not have someone to take care of you. Arrival Time for Surgery: - The Surgery Center or hospital where you are having surgery will call the afternoon before surgery (or Wednesday for Wednesday surgery) with a scheduled arrival time. - If you have not heard by 4 pm, please contact the surgery center above. Please be aware that emergency situations arise, which may delay or change your surgical time. If this happens, we will notify you as soon as possible and regret any inconvenience. If you already have an Advance Directive, please fax a copy to [phone] or email to for it to be added to your chart. If you do not have an Advance Directive, you can find the appropriate form and more information at [email or web address]. We recommend that you complete the Advance Directive form found on the website and bring it with you the day of your surgery. It can be witnessed and scanned into your chart that day. Haylee León APRN.CNP [phone] documented in this encounter [facility] 05-27-2022 History and physical note PREANESTHESIA CONSULT CLINIC TELEHEALTH VISIT Patient has been identified by name and date of : Yes This is a virtual visit using [employer] video visit. It require patient-provider interaction for the medical decision making as documented below. Reason for contact: PACC visit Accompanied by: Self Scheduled Surgery: ARTHROPLASTY CARPOMETACARPAL JOINTS - Right Subjective CHIEF COMPLAINT: Patient presents with: Anesthesia Consult HPI: This is a 62 year old female who presents with diagnosis of primary osteoarthritis of right thumb scheduled for arthroplasty of right carpometacarpal joint. Denies any open areas, cuts, wound of right hands. Denies any current s/s of local or systemic infection. There is no problem list on file for this patient. PAST MEDICAL HISTORY Diagnosis Date Arthritis PAST SURGICAL HISTORY Procedure Laterality Date KNEE SURGERY HX Left meniscus FAMILY HISTORY Problem Relation Age of Onset other (heart disease) Mother Prostate Cancer Father other (back surgeries) Sister Cataract Sister other (knee surgery) Sister Ischemic Heart Disease Brother bypass other (kidney cancer) Brother Obesity Brother No Known Problems Brother other (heart disease) Maternal Grandmother other (heart disease) Maternal Grandfather Cancer Paternal Grandmother mid 50's. Social History Tobacco Use Smoking status: Never Smokeless tobacco: Never Vaping Use Vaping Use: Never used Substance Use Topics Drug use: Never ALLERGIES Allergen Reactions Cortisone Hives States it turns her legs purple. Influenza Virus Vac* Hives States it turns her legs purple MEDICATIONS: Current Outpatient Medications Medication Sig MULTIVITAMIN ORAL Take by mouth. ergocalciferol, vitamin D2, (VITAMIN D2 ORAL) Take by mouth. ascorbic acid (VITAMIN C ORAL) Take by mouth. ZINC ORAL Take by mouth. MEDICATION, NON-DATABASE Tumeric with herb No current facility-administered medications for this visit. COVID VACCINATION STATUS: Not vaccinated REVIEW OF SYSTEMS: Pain Assessment: General: No weight loss, malaise or fevers. Neuro: No history of TIA's, stroke, CHIEF KNOWLEDGE OFFICER tumor, impaired sensorium, hemiplegia, paraplegia or quadraplegia. No neurological symptoms or problems. Respiratory: No history of current cough or dyspnea, or pneumonia in the past 6 weeks. No history of respiratory/pulmonary symptoms or problems. Cardiovascular: No history of HTN requiring medication, no history of angina, CHF, UT, cardiac surgery or stents. Denies rest pain, gangrene or revascularization/amputation for PVD. No history of cardiovascular symptoms or problems. GI: No history of GI symptoms or problems. No history of esophageal varices, recent ascites, or ETOH greater than 2 drinks per day. 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 : N/A, No LMP recorded. Patient is postmenopausal. Endocrine: No history of diabetes. Has not taken steroids within the past 30 days. No history of endocrinological symptoms or problems. Hematology: No history of bleeding or clotting disorder. Pt is not taking anti-coagulation or platelet medications. No history of hematological symptoms or problems. Oncology: No history of CA metastasis, chemo within 30 days, or radiotherapy within 90 days. Has not lost 10% of body wt in 6 months. No history of oncological symptoms or problems. Psych: No history of psychiatric symptoms or problems. Musculoskeletal: See HPI Skin: Negative for lesions, rash and itching. Objective PHYSICAL EXAM: Ht 5' 10 (1.78m) Wt 180 lb (81.6kg) BMI 25.83 kg/(m^2). VIDEO EXAM: (if completed, performed via video enabled technology) GENERAL: alert and appropriate, in no distress, well-hydrated, well nourished, and happy, smiling, interactive SKIN: no rash noted HEAD: normocephalic, no abnormality or lesion noted EYES: no injection and visual acuity is grossly normal EARS: hearing grossly normal NOSE: external nose normal without rhinorrhea OROPHARYNX: moist mucus membranes NECK: full ROM, no cervical LNs noted RESPIRATORY: breathing non-labored CHEST: equal chest rise with normal respiratory effort HEART: heart rate and rhythm regular by patient report with palpation of carotid artery and nodding head with heart beat ABDOMEN: soft and non-tender Diagnostic tests reviewed for today's visit: Component Latest Ref Rng & Units 09/17/2021 WBC 3.70 - 11.00 k/uL 3.84 RBC 3.90 - 5.20 m/uL 4.54 Hemoglobin 11.5 - 15.5 g/dL 13.1 Hematocrit 36.0 - 46.0 % 41.4 MCV 80.0 - 100.0 fL 91.2 MCH 26.0 - 34.0 pg 28.9 MCHC 30.5 - 36.0 g/dL 31.6 RDW-CV 11.5 - 15.0 % 12.7 Platelet Count 150 - 400 k/uL 229 MPV 9.0 - 12.7 fL 11.0 Neut% % 46.6 Abs Neut (ANC) 1.45 - 7.50 k/uL 1.79 Lymph% % 39.3 Abs Lymph 1.00 - 4.00 k/uL 1.51 Emanuel% % 9.6 Abs Emanuel <0.87 k/uL 0.37 Eosin% % 3.4 Abs Eosin <0.46 k/uL 0.13 Baso% % 0.8 Abs Baso <0.11 k/uL 0.03 Immature Gran % % 0.3 IMMATURE GRANS (ABS) <0.10 k/uL <0.03 NRBC /100 WBC 0.0 Absolute nRBC <0.01 k/uL <0.01 DTYPE Auto Protein, Total 6.3 - 8.0 g/dL 7.4 Albumin 3.9 - 4.9 g/dL 4.4 Calcium 8.5 - 10.2 mg/dL 10.1 Bilirubin, Total 0.2 - 1.3 mg/dL 0.3 Alkaline Phosphatase 34 - 123 U/L 90 AST 13 - 35 U/L 21 ALT 7 - 38 U/L 16 Glucose 74 - 99 mg/dL 86 BUN 7 - 21 mg/dL 16 Creatinine 0.58 - 0.96 mg/dL 0.72 Sodium 136 - 144 mmol/L 139 Potassium 3.7 - 5.1 mmol/L 5.1 Chloride 97 - 105 mmol/L 101 CO2 22 - 30 mmol/L 29 Anion Gap 9 - 18 mmol/L 9 eGFR >=60 mL/min/1.73m 95 No results found for: HBA1C Impression/Recommendations ASSESSMENT: Assessment: There is no known pertinent medical condition which may affect malgorzata-operative course METS: Walk indoors, such as around the house (1.75 METs) Do light work around the house, such as dusting or washing dishes (2.70 METs) Take care of self; that is eating, dressing, bathing, using the toilet (2.75 METs) Walk a block or two on level ground (2.75 METs) Do moderate work around the house such as vacuuming, sweeping floors, or carrying in groceries (3.50 METs) Do yardwork, such as raking leaves, weeding,or pushing a power mower (4.50 METs) Climb a flight of stairs or walk up a hill (5.50 METs) Patient denies any chest pain or undue shortness of breath with the above physical activity. ASA Class: 1 ANESTHESIA FINDINGS: Intubation History: No history of difficult intubation Significant Anesthesia Considerations: reports that it takes a lot to numb me for dental procedures and she wakes up hard and fast Airway Exam: General: Normal appearance Mallampati Score is CLASS II ULBT: Class I - Lower incisors can bite the upper lip above the clark line Neck: Normal appearance and function, Distance from hyoid to mentum during neck extension is at least 3 finger breaths Mouth: Normal tongue size and Mouth opening greater than 2 finger breaths Dentition: Intact Airway History: No abnormal airway history STOP BANG Score: Criteria: Age over 50 (62 year old) Score = 1 PLAN: This patient is optimally prepared for surgery. CONSULTS: Patient does not require consults for optimization at this time. The Following Tests/Procedures Have Been Initiated: Labs not indicated per PACC protocol, EKG not indicated per PACC protocol Planned Anesthetic: Block; Per anesthesia choice Instructions Given to Patient: Patient given verbal instructions and voices comprehension and compliance. Copy sent electronically via My Chart, email, or mobile device. This is a virtual visit. It required patient-provider interaction for the medical decision making as documented above. SIGNATURE: Haylee León APRN.CNP PATIENT NAME: Deanne Sánchez DATE: May 27, 2022 TIME: 2:36 PM PAGER/CONTACT #: documented in this encounter [facility] 04-13-2022 Miscellaneous Notes Surgery has been rescheduled as requested. Patient calling and states she is scheduled for surgery on 05/01/22 and would like to reschedule to 06/10/22 due to her needs hernia surgery as well after the first of the year. They have a high deductible and wants to wait to have hers done next year also. Case message sent to [facility] schedulers. Post op appointments rescheduled and mailed to patient. documented in this encounter [facility] 10-24-2021 Miscellaneous Notes Letter sent to pt with normal results. Ever Small LPN Patient telephoned. Message left to call back for update. Kriss Bautista LPN ----- Message from Grace Ro APRN.CNP sent at 10/24/2021 1:17 PM EDT ----- Can please let patient know that cologuard was negative/normal. This should be repeated in three years. Grace Ro APRN.CNP documented in this encounter [facility] 10-15-2021 Miscellaneous Notes TC to pt, left detailed message on secure identified voicemail. Pt only to return calls with questions or concerns. Ever Small LPN Can please let patient know that I received her mammogram results.There are no concerning or worrisome findings. Please continue annual screening mammograms. Grace Ro APRN.MADELINE Received results of routine mammogram via faxed. Placed in provider office for further review. HM updated. Ever Small LPN documented in this encounter [facility] 10-08-2021 Miscellaneous Notes Order has been faxed as requested. Germaine Pierson LPN Order placed. Please fax as requested. Grace Ro APRN.[facility] imaging calling, states that need a Bilateral Screening mammogram 3D or with Luis Fernando. Asking that order be faxed to [phone]. Patient has appt tomorrow. Please advise. documented in this encounter [facility] [facility] History of Presen t illness Narrative PT ASSESSMENT - CASTING ROOM Deanne presents for Application of brace. Applied Small Actimove Rhizo Forte to Right hand. Patient has been instructed in Care and proper application of brace. Dominique Cabello Ma Associated Order(s): Small Joint Arthro/Inj: R thumb [facility] Galo Warren MD Department of Orthopaedics Orthopa[facility] [address] [place] [id number] Dept: [phone] Dept September 25, 2021 Consultation requested by Cleopatra Ricks CNP for an opinion regarding right thumb pain. My final recommendations will be communicated back to the requesting physician by way of shared Medical record or letter to requesting physician via US mail. CHIEF COMPLAINT: Pain of the Right Thumb HPI Patient enjoys knitting and quilting however her right thumb specifically is giving her quite a bit of problems. She has had a previous cortisone injection. She is interested at some point and potentially taking care of it surgically. Today, she is interested in another injection. We will try some splinting as well. ASSESSMENT: M18.11 Primary osteoarthritis of first carpometacarpal joint of right hand (primary encounter diagnosis) M79.644 Thumb pain, right PLAN: [facility] injection, splinting. We reviewed potential surgical options. FOLLOW UP INSTRUCTIONS: As needed Ms. Deanne Sánchez was advised as to contrast therapies and/or to take analgesics/anti-inflammatories as needed and all contraindications were reviewed. OBJECTIVE: Ms. Deanne Sánchez is a pleasant 61 year old in no apparent distress. Gen:There were no vitals taken for this visit. nl development, non obese, no deformities ENT: Normocephalic, normal hearing, moist mucosa CV: Pulses:Radial= 2+ and symmetric, capillary refill < 2 secs, no peripheral edema/varicosities Skin: no rash, bruising or lesions. Good turgor. Psych: cooperative and appropriate, alert and oriented x 3, good mood and affect. Musculoskeletal: Mild swelling at the basal joint of the thumb. Tender to palpation at the dorsal capsule. Pain and crepitance on grind testing. Small Joint Arthro/Inj: R thumb [facility] Informed Consent Consent Obtained: Verbal [place] Protocol A moment to CARE was completed. SIGN IN Personnel directly involved with the procedure wore the appropriate PPE. Special Equipment: N/A Patient/Surrogate Stated/Verified: Patient name, Date of , Relevant allergies and Intended procedure TIME OUT Intended patient and procedure match the source document(s). Consent documented and matches the intended procedure. Relevant labs, photos, and/or imaging studies have been reviewed. Correct side/site marked and visible. Medications required for procedure verified. No fire risk assessment and interventions applicable. No implant(s) inserted. 09/25/2021 10:58 AM The procedure site was prepped in the usual sterile fashion. Medications: 3 mg betamethasone acetate-betamethasone sodium phosphate 6 mg/mL Anesthetics: 0.5 mL lidocaine (PF) 10 mg/mL (1 %) Outcome: tolerated well, no immediate complications Post-injection instructions were reviewed with the patient and the patient voiced understanding of these instructions. SIGN OUT All specimen containers correctly labeled. No instruments, equipment or retained foreign bodies applicable. Post-procedure follow-up management communicated and Plan of Care Visit completed when applicable IMAGING: * * *Final Report* * * DATE OF EXAM: Sep 25 2021 10:17AM [id number] [id number] - XR HAND 3V PA/LAT/OBL RT / PROCEDURE REASON: Thumb pain, right * * * * Physician Interpretation * * * * Indication: Right thumb pain Comparison: None PA, lateral and oblique views of the right hand are obtained. There is no acute fracture or dislocation. There is narrowing of the right first carpometacarpal joint with subchondral sclerosis and marginal osteophytes. There is mild narrowing of the right first metacarpophalangeal joint with small marginal osteophytes. There is narrowing of the interphalangeal joint of the thumb with marginal osteophytes. There are small marginal osteophytes at the DIP joints of the right second through fifth digits. No periarticular erosions. Impression: 1. No acute fracture or dislocation. 2. Degenerative disease of the right hand Supporting Subjective Information Below: Past Medical History: PAST MEDICAL HISTORY Diagnosis Date Arthritis Past Surgical History: PAST SURGICAL HISTORY Procedure Laterality Date KNEE SURGERY HX Left meniscus Family History: FAMILY HISTORY Problem Relation Age of Onset other (heart disease) Mother Prostate Cancer Father other (back surgeries) Sister Cataract Sister other (knee surgery) Sister Ischemic Heart Disease Brother bypass other (kidney cancer) Brother Obesity Brother No Known Problems Brother other (heart disease) Maternal Grandmother other (heart disease) Maternal Grandfather Cancer Paternal Grandmother mid 50's. Social History: Social History Tobacco Use Smoking status: Never Smoker Smokeless tobacco: Never Used Vaping Use Vaping Use: Never used Substance Use Topics Alcohol use: Not on file Comment: occasional glass of wine Drug use: Never Medications: Current Outpatient Medications Medication Sig MULTIVITAMIN ORAL Take by mouth. ergocalciferol, vitamin D2, (VITAMIN D2 ORAL) Take by mouth. ascorbic acid (VITAMIN C ORAL) Take by mouth. ZINC ORAL Take by mouth. MEDICATION, NON-DATABASE Tumeric with herb No current facility-administered medications for this visit. Allergies: Cortisone and Influenza Virus Vaccines ROS: General (negative for fatigue, malaise, weight loss/gain) HEENT (negative for headache, earache, recent vision changes, sinus pain, sore throat) Respiratory (no recent shortness of breath, hemoptysis) CV (negative for chest tightness, palpitations) Musculoskeletal (see HPI) Psych (no depression, anxiety) REFERRING PHYSICIAN: Ms. Deanne Sánchez was referred to me for consultation by the following physician. This consultation note will be sent to the following physician by either mail or electronic medical record. Grace Ro [address] [facility] [address] No primary care provider on file. No primary provider on file. Galo Warren MD documented in this encounter [facility] 09-25-2021 History of Presen t illness Narrative Radiology Service Progress Note PATIENT NAME: Deanne Sánhcez DATE OF SERVICE: September 25, 2021 TIME: 10:10 AM PATIENT IDENTITY VERIFICATION COMPLETED USING TWO (2) IDENTIFIERS: Name and Date of confirmed by patient verbally. FALL SCREENING: Has the patient had 2 falls in the last year or 1 fall with injury or currently using an Ambulatory Assistive Device (Walker, Cane, Wheelchair, Crutches, etc.)? No PATIENT GENDER DATA: Female. status: : No status: NO. PATIENT RELEVANT IMPLANT DATA REVIEWED: Yes RADIOLOGY DEPARTMENT: General X-ray: Exam(s) Completed: Upper Extremity X-Ray(s): Hand, right PERIPHERAL IV DATA: Not applicable SIGNED BY: RT Andressa(R) September 25, 2021 10:10 AM documented in this encounter [facility] 09-22-2021 Miscellaneous Notes Noted. Grace Ro APRN.CNP Spoke with patient on telephone who verbalizes understanding of providers message and says she will take providers instructions under advisement. Patient not interested in starting medication at this time. CHARLI Gallo Can please let patient know that I received her lab results. Overall everything looks stable, and while her good cholesterol level is high, so is her bad cholesterol. Ways to decrease your cholesterol/LDL include quitting/cutting down on smoking if a smoker, decreasing sugars and greasy foods, increasing exercise to 30-45 minutes a day x 5 days a week, and increasing fiber and omega-3 fatty acids (fish oil 2000 mg a day) in your diet. Also an option of starting a cholesterol medication, such as a statin, at bedtime will decrease your cardiovascular risk. Grace Ro APRN.CNP documented in this encounter [facility] Evaluation note Diagnosis Thumb pain, right- Primary [facility] Diagnosis Thumb pain, right [facility] Diagnosis Visit for screening mammogram- Primary Other screening mammogram [facility] Diagnosis Primary osteoarthritis of first carpometacarpal joint of right hand- Primary Primary localized osteoarthrosis, hand Thumb pain, right [facility] noteNo assessment information availableWSt. Charles Hospital Work Phone: Evaluation note* Diagnosis Pre-op evaluation- Primary Preoperative examination, unspecified Primary osteoarthritis of first carpometacarpal joint of right hand Primary localized osteoarthrosis, hand [facility] Primary osteoarthritis of first carpometacarpal joint of right hand Primary localized osteoarthrosis, hand [facility] Diagnosis Primary osteoarthritis of first carpometacarpal joint of right hand- Primary Primary localized osteoarthrosis, hand [facility] Diagnosis Primary osteoarthritis of first carpometacarpal joint of right hand- Primary Primary localized osteoarthrosis, hand [facility] Diagnosis Primary osteoarthritis of first carpometacarpal joint of right hand- Primary Primary localized osteoarthrosis, hand [facility] Diagnosis Thumb joint stiffness- Primary Primary osteoarthritis of first carpometacarpal joint of right hand Primary localized osteoarthrosis, hand [facility] Diagnosis Thumb joint stiffness- Primary Primary osteoarthritis of first carpometacarpal joint of right hand Primary localized osteoarthrosis, hand [facility] Diagnosis Thumb pain, right- Primary [facility] Diagnosis Primary osteoarthritis of first carpometacarpal joint of right hand Primary localized osteoarthrosis, hand [facility] Diagnosis Myriam's thyroiditis- Primary Chronic lymphocytic thyroiditis Abnormal thyroid blood test Nonspecific abnormal results of thyroid function study [facility] Diagnosis Myriam's thyroiditis Chronic lymphocytic thyroiditis [facility] Diagnosis Myriam's thyroiditis- Primary Chronic lymphocytic thyroiditis [facility] Diagnosis Encounter for screening mammogram for breast cancer [facility] Diagnosis Myriam's thyroiditis- Primary Chronic lymphocytic thyroiditis [facility] Diagnosis Welcome to Medicare preventive visit- Primary Routine general medical examination at a health care facility Hyperlipidemia, mixed Mixed hyperlipidemia Screening for diabetes mellitus [facility] Diagnosis Leukopenia, unspecified type- Primary [facility] Diagnosis Myriam's thyroiditis- Primary Chronic lymphocytic thyroiditis documented in this encounter [facility] for referral (narrative)* Diagnostic Procedure Only (Routine) - Pending Review Specialty Diagnoses / Procedures Referred By Contac t Referred To Contact XR IMAGING Diagnoses Thumb pain, right Procedures XR HAND GENERAL 3V PA/LAT/OBL RIGHT RADEX HAND MINIMUM 3 VIEWS Galo Warren MD [address] [facility] [place] [address] Xr Imaging Referral ID Status Reason Start Date Expiration Date Visits Requested Visits Authorized [id number] Pending Review Auto-Generat ed Referral 09/22/2021 10/22/2022 1 1 [facility] for referral (narrative)* Diagnostic Procedure Only (Routine) - Closed Specialty Diagnoses / Procedures Referred By Contac t Referred To Contact XR IMAGING Diagnoses Thumb pain, right Procedures XR HAND GENERAL 3V PA/LAT/OBL RIGHT RADEX HAND MINIMUM 3 VIEWS Galo Warren MD [address] [place] [address] Xr Imaging Referral ID Status Reason Start Date Expiration Date V isits Requested Visits Authorized [id number] Closed Auto-Generate d Referral 09/22/2021 10/22/2022 1 1 T [facility] for referral (narrative)* Diagnostic Procedure Only (Routine) - Pending Review Specialty Diagnoses / Procedures Referred By Contac t Referred To Contact BR IMAGING Diagnoses Visit for screening mammogram Procedures JUDITH SCREENING W LUIS FERNANDO SCREENING DIGITAL BREAST TOMOSYNTHESIS BI SCREENING MAMMOGRAPHY BI 2-VIEW BREAST INC Grace Srivastava, [employer] [address] [place] [address] [facility] [address] [place] [address] Referral ID Status Reason Start Date Expiration Date Visits Requested Visits Authorized [id number] Pending Review Auto-Generat ed Referral 10/08/2021 11/07/2022 1 1 [facility] for referral (narrative)* Diagnostic Procedure Only (Routine) - Pending Review Specialty Diagnoses / Procedures Referred By Naresh garza Referred To Contact XR IMAGING Diagnoses Primary osteoarthritis of first carpometacarpal joint of right hand Procedures XR HAND GENERAL 3V PA/LAT/OBL RIGHT RADEX HAND MINIMUM 3 VIEWS Galo Warren MD [address] [place] [address] Xr Imaging Referral ID Status Reason Start Date Expiration Date Visits Requested Visits Authorized [id number] Pending Review Auto-Generat ed Referral 07/08/2022 08/07/2023 1 1 [facility] for referral (narrative)* Diagnostic Procedure Only (Routine) - New Request Specialty Diagnoses / Procedures Referred By Naresh garza Referred To Contact BR IMAGING Diagnoses Encounter for screening mammogram for breast cancer Procedures JUDITH SCREENING W LUIS FERNANDO SCREENING DIGITAL BREAST TOMOSYNTHESIS BI SCREENING MAMMOGRAPHY BI 2-VIEW BREAST INC Grace Srivastava APRN.CNP [address] [place] [address] [facility] [address] [place] [address] Referral ID Status Reason Start Date Expiration Date Visits Requested Visits Authorized [id number] New Request Auto-Generat ed Referral 04/12/2024 05/12/2025 1 1 [facility] for referral (narrative)No reason for referral information availableWSt. Charles Hospital Work Phone: Medications Administered Section Inactive Administered Medications - up to 3 most recent administrations Medication Order MAR Action Action Date Dose Rate Site betamethasone acetate-betamethasone sodium phosphate 3 mg injection (CELESTONE) 3 mg, Injection - FOR ORTHO USE ONLY, ONE TIME INJECTION, 1 dose, Starting on Joyce 09/25/21 at 1058, Until Joyce 09/25/21 at 1058 Given 09/25/2021 10:58 AM EDT 3 mg lidocaine (PF) 10 mg/mL (1 %) 0.5 mL injection (XYLOCAINE) 0.5 mL, Injection - FOR ORTHO USE ONLY, ONE TIME INJECTION, 1 dose, Starting on Joyce 09/25/21 at 1058, Until Joyce 09/25/21 at 1058 Given 09/25/2021 10:58 AM EDT 0.5 mL Chief Complaint and Reason for Visit Chief Complaint SCREENING Chief Complaint Admit Date SCREENING August 07, 2024 9:47 am Advance Directives Advance Directive Response Recorded Date/ Time Living Will No August 22, 2016 8:44am Power of Biology Department Chair No August 22 8:44am Reason for Referral Specialty Diagnoses / Procedures Referred By Contac t Referred To Contact [facility] Diagnoses Primary osteoarthritis of first carpometacarpal joint of right hand Procedures OT REHAB FOLLOW UP ORDER THERAPEUT ACTVITY DIRECT PT CONTACT EACH 15 MIN [facility] [address] [place] [address] [facility] [address] [address] Referral ID Status Reason Start Date Expiration Date Visits Requested Visits Authorized [id number] Pending Review PCP Requested Referral Auto-Generate d Referral 06/23/2022 09/21/2022 1 1 Specialty Diagnoses / Procedures Referred By Naresh garza Referred To Contact XR IMAGING Diagnoses Primary osteoarthritis of first carpometacarpal joint of right hand Procedures XR HAND GENERAL 3V PA/LAT/OBL RIGHT RADEX HAND MINIMUM 3 VIEWS Galo Warren MD [address] [place] [address] [place] [id number] Referral ID Status Reason Start Date Expiration Date V isits Requested Visits Authorized [id number] Closed Auto-Generate d Referral 07/13/2022 06/06/2023 1 1 Summary Purpose Family History No Family History Records Found Additional Source Comments Source Comments (unrecognize d section and content) In the event this informatio n is protected by the Federal Confidentiality of Alcohol and Drug Abuse Patient Records regulations: The Federal rules restrict any use of the information to criminally investigate or prosecute any alcohol or drug abuse patient.[facility] the event this information is protected by the Federal Confidentiality of Alcohol and Drug Abuse Patient Records regulations: The Federal rules restrict any use of the information to criminally investigate or prosecute any alcohol or drug abuse patient.[facility] HospitalIn the event this information is protected by the Federal Confidentiality of Alcohol and Drug Abuse Patient Records regulations: The Federal rules restrict any use of the information to criminally investigate or prosecute any alcohol or drug abuse patient.[facility]In the event this information is protected by the Federal Confidentiality of Alcohol and Drug Abuse Patient Records regulations: The Federal rules restrict any use of the information to criminally investigate or prosecute any alcohol or drug abuse patient.[facility] HospitalIn the event this information is protected by the Federal Confidentiality of Alcohol and Drug Abuse Patient Records regulations: The Federal rules restrict any use of the information to criminally investigate or prosecute any alcohol or drug abuse patient.[facility] HospitalIn the event this information is protected by the Federal Confidentiality of Alcohol and Drug Abuse Patient Records regulations: The Federal rules restrict any use of the information to criminally investigate or prosecute any alcohol or drug abuse patient.[facility] HospitalIn the event this information is protected by the Federal Confidentiality of Alcohol and Drug Abuse Patient Records regulations: The Federal rules restrict any use of the information to criminally investigate or prosecute any alcohol or drug abuse patient.[facility] HospitalIn the event this information is protected by the Federal Confidentiality of Alcohol and Drug Abuse Patient Records regulations: The Federal rules restrict any use of the information to criminally investigate or prosecute any alcohol or drug abuse patient.[facility] HospitalIn the event this information is protected by the Federal Confidentiality of Alcohol and Drug Abuse Patient Records regulations: The Federal rules restrict any use of the information to criminally investigate or prosecute any alcohol or drug abuse patient.[facility] HospitalIn the event this information is protected by the Federal Confidentiality of Alcohol and Drug Abuse Patient Records regulations: The Federal rules restrict any use of the information to criminally investigate or prosecute any alcohol or drug abuse patient.[facility] HospitalIn the event this information is protected by the Federal Confidentiality of Alcohol and Drug Abuse Patient Records regulations: The Federal rules restrict any use of the information to criminally investigate or prosecute any alcohol or drug abuse patient.[facility] HospitalIn the event this information is protected by the Federal Confidentiality of Alcohol and Drug Abuse Patient Records regulations: The Federal rules restrict any use of the information to criminally investigate or prosecute any alcohol or drug abuse patient.[facility] HospitalIn the event this information is protected by the Federal Confidentiality of Alcohol and Drug Abuse Patient Records regulations: The Federal rules restrict any use of the information to criminally investigate or prosecute any alcohol or drug abuse patient.[facility] HospitalIn the event this information is protected by the Federal Confidentiality of Alcohol and Drug Abuse Patient Records regulations: The Federal rules restrict any use of the information to criminally investigate or prosecute any alcohol or drug abuse patient.[facility] HospitalIn the event this information is protected by the Federal Confidentiality of Alcohol and Drug Abuse Patient Records regulations: The Federal rules restrict any use of the information to criminally investigate or prosecute any alcohol or drug abuse patient.[facility] HospitalIn the event this information is protected by the Federal Confidentiality of Alcohol and Drug Abuse Patient Records regulations: The Federal rules restrict any use of the information to criminally investigate or prosecute any alcohol or drug abuse patient.[facility] HospitalIn the event this information is protected by the Federal Confidentiality of Alcohol and Drug Abuse Patient Records regulations: The Federal rules restrict any use of the information to criminally investigate or prosecute any alcohol or drug abuse patient.[facility] HospitalIn the event this information is protected by the Federal Confidentiality of Alcohol and Drug Abuse Patient Records regulations: The Federal rules restrict any use of the information to criminally investigate or prosecute any alcohol or drug abuse patient.[facility] HospitalIn the event this information is protected by the Federal Confidentiality of Alcohol and Drug Abuse Patient Records regulations: The Federal rules restrict any use of the information to criminally investigate or prosecute any alcohol or drug abuse patient.[facility] HospitalIn the event this information is protected by the Federal Confidentiality of Alcohol and Drug Abuse Patient Records regulations: The Federal rules restrict any use of the information to criminally investigate or prosecute any alcohol or drug abuse patient.[facility] HospitalIn the event this information is protected by the Federal Confidentiality of Alcohol and Drug Abuse Patient Records regulations: The Federal rules restrict any use of the information to criminally investigate or prosecute any alcohol or drug abuse patient.[facility] HospitalIn the event this information is protected by the Federal Confidentiality of Alcohol and Drug Abuse Patient Records regulations: The Federal rules restrict any use of the information to criminally investigate or prosecute any alcohol or drug abuse patient.[facility] HospitalIn the event this information is protected by the Federal Confidentiality of Alcohol and Drug Abuse Patient Records regulations: The Federal rules restrict any use of the information to criminally investigate or prosecute any alcohol or drug abuse patient.[facility] HospitalIn the event this information is protected by the Federal Confidentiality of Alcohol and Drug Abuse Patient Records regulations: The Federal rules restrict any use of the information to criminally investigate or prosecute any alcohol or drug abuse patient.[facility] HospitalIn the event this information is protected by the Federal Confidentiality of Alcohol and Drug Abuse Patient Records regulations: The Federal rules restrict any use of the information to criminally investigate or prosecute any alcohol or drug abuse patient.[facility] HospitalIn the event this information is protected by the Federal Confidentiality of Alcohol and Drug Abuse Patient Records regulations: The Federal rules restrict any use of the information to criminally investigate or prosecute any alcohol or drug abuse patient.[facility] HospitalIn the event this information is protected by the Federal Confidentiality of Alcohol and Drug Abuse Patient Records regulations: The Federal rules restrict any use of the information to criminally investigate or prosecute any alcohol or drug abuse patient.[facility] HospitalIn the event this information is protected by the Federal Confidentiality of Alcohol and Drug Abuse Patient Records regulations: The Federal rules restrict any use of the information to criminally investigate or prosecute any alcohol or drug abuse patient.[facility] HospitalIn the event this information is protected by the Federal Confidentiality of Alcohol and Drug Abuse Patient Records regulations: The Federal rules restrict any use of the information to criminally investigate or prosecute any alcohol or drug abuse patient.[facility] HospitalIn the event this information is protected by the Federal Confidentiality of Alcohol and Drug Abuse Patient Records regulations: The Federal rules restrict any use of the information to criminally investigate or prosecute any alcohol or drug abuse patient.[facility] Hospital[facility] the event this information is protected by the Federal Confidentiality of Alcohol and Drug Abuse Patient Records regulations: The Federal rules restrict any use of the information to criminally investigate or prosecute any alcohol or drug abuse patient.[facility] HospitalIn the event this information is protected by the Federal Confidentiality of Alcohol and Drug Abuse Patient Records regulations: The Federal rules restrict any use of the information to criminally investigate or prosecute any alcohol or drug abuse patient.[facility] HospitalIn the event this information is protected by the Federal Confidentiality of Alcohol and Drug Abuse Patient Records regulations: The Federal rules restrict any use of the information to criminally investigate or prosecute any alcohol or drug abuse patient.[facility] HospitalIn the event this information is protected by the Federal Confidentiality of Alcohol and Drug Abuse Patient Records regulations: The Federal rules restrict any use of the information to criminally investigate or prosecute any alcohol or drug abuse patient.[facility] Reason for Visit (unrecogniz ed section and content) Reason Comments Results Specialty Diagnoses / Procedures Referred By Contac t Referred To Contact Orthopedics Diagnoses Thumb pain, right Procedures CONSULT TO ORTHOPAEDICS OFFICE/OUTPATIENT NEW HIGH MDM 60-74 MINUTES Grace Ro, LEAD FORMER.[employer] [address] [place] [address] [place] [address] Referral ID Status Reason Start Date Expiration Date V isits Requested Visits Authorized [id number] Closed PCP Requested Referral 09/25/2021 06/06/2022 2 2 Reason Comments Orders Reason Comments Pain Specialty Diagnoses / Procedures Referred By Contac t Referred To Contact Orthopedics Diagnoses Thumb pain, right Procedures CONSULT TO ORTHOPAEDICS OFFICE/OUTPATIENT [facility] 60-74 MINUTES Grace Ro APRN.[employer] [address] [place] [address] [place] [address] Reason Comments Reschedule surgery Reason Comments Anesthesia Consult Reason Comments Appointment Reason Comments OT EVAL Specialty Diagnoses / Procedures Referred By Contac t Referred To Contact [facility] Diagnoses Primary osteoarthritis of first carpometacarpal joint of right hand Procedures CONSULT TO MASK FORMER OCCUPATIONAL THERAPY EVAL HIGH COMPLEX 60 MINS Juli Teran PA-C [address] [place] [address] [facility] [place] [address] [place] [address] Referral ID Status Reason Start Date Expiration Date Visits Requested Visits Authorized [id number] Authorized Auto-Generat ed Referral 06/23/2022 06/06/2023 20 20 Reason Comments Established Patient Post Op Specialty Diagnoses / Procedures Referred By Naresh t Referred To Contact Orthopedics / ORTHOPAEDIC SURGERY Diagnoses Post op right thumb CMC arthroplasty Procedures POST OP Galo Warren MD [address] [address] Galo Warren MD [address] [place] [address] Referral ID Status Reason Start Date Expiration Date Visits Re quested Visits Authorized [id number] Closed 06/07/2022 06/06/2023 1 1 Reason Comments Occupational Therapy Specialty Diagnoses / Procedures Referred By Priyaac t Referred To Contact [facility] Diagnoses Primary osteoarthritis of first carpometacarpal joint of right hand Procedures CONSULT TO MASK FORMER OCCUPATIONAL THERAPY EVAL HIGH COMPLEX 60 MINS Juli Teran PA-C [address] [place] [address] [facility] [place] [address] [place] [address] Reason Comments Post Op 4 weeks 5 days post op Right thumb CMC arthroplasty with tr and 1st dorsal compartment release Specialty Diagnoses / Procedures Referred By Contac t Referred To Contact Orthopedics / ORTHOPAEDIC SURGERY Diagnoses H/O arthroplasty Post op right thumb CMC arthroplasty Procedures OFFICE/OUTPATIENT [facility]ABL[facility] MDM 30-39 MIN POST OP Galo Warren MD [address] [address] Juli Teran PA-C [address] [place] [address] Referral ID Status Reason Start Date Expiration Date Visits Re quested Visits Authorized [id number] Closed 07/14/2022 06/06/2023 1 1 Specialty Diagnoses / Procedures Referred By Contac t Referred To Contact XR IMAGING Diagnoses Primary osteoarthritis of first carpometacarpal joint of right hand Procedures XR HAND GENERAL 3V PA/LAT/OBL RIGHT RADEX HAND MINIMUM 3 VIEWS Galo Warren MD [address] [place] [address] [place] [id number] Referral ID Status Reason Start Date Expiration Date V isits Requested Visits Authorized [id number] Closed Auto-Generate d Referral 07/13/2022 06/06/2023 1 1 Reason Comments Endocrinology update Reason Comments Thyroid Problem TSH and TPO abnormal labs Specialty Diagnoses / Procedures Referred By Contac t Referred To Contact Endocrinology Diagnoses Abnormal thyroid blood test Procedures CONSULT TO ENDOCRINOLOGY OFFICE/OUTPATIENT NEW HIGH MDM 60 MINUTES Haylee Watson, LEAD FORMER[employer] [address] [place] [address] Referral ID Status Reason Start Date Expiration Date V isits Requested Visits Authorized [id number] Closed PCP Requested Referral 07/16/2023 07/15/2024 1 1 Reason Onset Date Comments Refill Request 11/09/2023 Reason Onset Date Comments Refill Request 12/27/2023 Reason Comments Thyroid Problem Reason Comments Myriam's thyroiditis Labs 06/22/24 Reason Comments Medicare Wellness Exam Goals (unrecognized section and content) Goals may be documented in a n alternate sectionGoals may be documented in an alternate section Care Teams (unrecognized sec tion and content) Waiter/Waitress Dining Car Relationship Specialty Start Date End Date Grace Ro, LEAD FORMER[employer] [address] [place] [address] PCP - General Family Practice 09/17/21 Waiter/Waitress Dining Car Relationship Specialty Start Date End Date Grace Ro, LEAD FORMER.[employer] [address] [place] [address] PCP - General Family Medicine 09/17/21 Waiter/Waitress Dining Car Relationship Specialty Start Date End Date Grace Ro, LEAD FORMER.[employer] [address] [place] [address] PCP - General Family Medicine 09/17/21 Waiter/Waitress Dining Car Relationship Specialty Start Date End Date Grace Ro, LEAD FORMER.[employer] [address] [place] [address] PCP - General Family Medicine 09/17/21 Waiter/Waitress Dining Car Relationship Specialty Start Date End Date Grace Ro, LEAD FORMER.[employer] [address] [place] [address] PCP - General Family Medicine 09/17/21 Waiter/Waitress Dining Car Relationship Specialty Start Date End Date Grace Ro, LEAD FORMER.[employer] [address] [place] [address] PCP - General Family Medicine 09/17/21 Waiter/Waitress Dining Car Relationship Specialty Start Date End Date Grace Ro, LEAD FORMER.[employer] [address] [place] [address] PCP - General Family Medicine 09/17/21 Waiter/Waitress Dining Car Relationship Specialty Start Date End Date Grace Ro, LEAD FORMER.[employer] [address] [facility] [place] [address] PCP - General Family Medicine 09/17/21 Waiter/Waitress Dining Car Relationship Specialty Start Date End Date Grace Ro, LEAD FORMER.[employer] [address] [place] [address] PCP - General Family Medicine 09/17/21 Waiter/Waitress Dining Car Relationship Specialty Start Date End Date Grace Ro, LEAD FORMER.[employer] [address] [facility] [place] [address] PCP - General Family Medicine 09/17/21 Waiter/Waitress Dining Car Relationship Specialty Start Date End Date Grace Ro, LEAD FORMER.[employer] [address] [facility] [place] [address] PCP - General Family Medicine 09/17/21 Waiter/Waitress Dining Car Relationship Specialty Start Date End Date Grace Ro, LEAD FORMER.[employer] [address] [place] [place] [address] PCP - General Family Medicine 09/17/21 Waiter/Waitress Dining Car Relationship Specialty Start Date End Date Grace Ro, LEAD FORMER.[employer] [address] [facility] [place] [address] PCP - General Family Medicine 09/17/21 Waiter/Waitress Dining Car Relationship Specialty Start Date End Date Grace Ro, LEAD FORMER.[employer] [address] [facility] [place] [address] PCP - General Family Medicine 09/17/21 Waiter/Waitress Dining Car Relationship Specialty Start Date End Date Grace Ro, LEAD FORMER.[employer] [address] [facility] [place] [address] PCP - General Family Medicine 09/17/21 Waiter/Waitress Dining Car Relationship Specialty Start Date End Date Grace Ro, LEAD FORMER.[employer] [address] [place] [place] [address] PCP - General Family Medicine 09/17/21 Waiter/Waitress Dining Car Relationship Specialty Start Date End Date Grace Ro, LEAD FORMER.[employer] [address] [place] [address] PCP - General Family Medicine 09/17/21 Nadya Mclean APRN.[employer] [address] [place] [address] [employer] [facility] Family Medicine 05/14/24 Chai Rico MD [address] [place] [address] [employer] [facility] 05/14/24 Waiter/Waitress Dining Car Relationship Specialty Start Date End Date Grace Ro APRN.[employer] [address] [facility] [place] [address] PCP - General Family Medicine 09/17/21 Nadya Mlcean LEAD FORMER.[employer] [address] [facility] [place] [address] [employer] Family [facility] 05/14/24 Chai Rico MD [address] [place] [address] [employer] [facility] [facility] 05/14/24 Waiter/Waitress Dining Car Relationship Specialty Start Date End Date Grace Ro LEAD FORMER.[employer] [address] [place] [address] PCP - General Family Medicine 09/17/21 Nadya Mclean LEAD FORMER.[employer] [address] [place] [address] [employer] Family [facility] 05/14/24 Chai Rico MD [address] [facility] [address] [facility] 05/14/24 Waiter/Waitress Dining Car Relationship Specialty Start Date End Date Grace Ro APRN.[employer] [address] [place], [place] [address] PCP - General Family Medicine 09/17/21 Nadya Mclean APRN.[employer] [address] [place], [place] [id number] [facility]24 Chai Rico MD [address] [place], [place] [id number] [facility] 05/14/24 Team Status: Active Member Role Status Dates Grace Ro PLASTIC CUTTER, PLASTIC CUTTER-C Primary Care Provider Active Team Status: Inactive Member Role Status Dates Grace Ro PLASTIC CUTTER, PLASTIC CUTTER-C Primary Care Provider Active Start: August 07, 2024 End: August 07, 2024 ZEB Angel Attending Provider Active Start: August 07, 2024 End: August 07, 2024 ZEB Angel Referring Provider Active Start: August 07, 2024 End: August 07, 2024 Waiter/Waitress Dining Car Relationship Specialty Start Date End Date Grace Ro, LEAD FORMER.[employer] [address] [place], [place] [address] PCP - General Family Medicine 09/17/21 INFORMATION SOURCE (unrecogn ized section and content) DATE CREATED AUTHOR 02/18/2023 [facility] DATE CREATED AUTHOR AUTHOR'S ORGANIZ ATION 08/09/2024 [facility] DATE CREATED AUTHOR AUTHOR'S ORGANIZ ATION 08/21/2024 [facility] FOR RECORDS PERTAINING TO PATIENTS WHO ARE OR HAVE BEEN ENROLLED IN A CHEMICAL DEPENDENCY/SUBSTANCEABUSE PROGRAM, SOME INFORMATION MAY BE OMITTED. This clinical summary was aggregated from multiple sources. Caution should be exercised in using it in the provision of clinical care. This summary normalizes information from multiple sources, and as a consequence, information in this document may materially change the coding, format and clinical context of patient data. In addition, data may be omitted in some cases. CLINICAL DECISIONS SHOULD BE BASED ON THE PRIMARY CLINICAL RECORDS. [employer] [facility]. provides no warranty or guarantee of the accuracy or completeness of information in this document.
[2025-03-22 19:52] VITALS: BP 143/80; PULSE 69; RESP 18; TEMP 36.6; O2SAT 100
[2025-03-22] MEDS: HYDROcodone Bitartrate/Apap 5/325 Tablet PO (19:53)
== END 2025-03-22 19:55 | disposition home or self-care (01) ==
PROVIDERS: Emergency Provider Emergency Medicine; PCP Registered Nurse; Visit Provider Emergency Medicine
DX: S42.201A Unspecified fracture of upper end of right humerus, initial encounter for closed fracture (principal); W01.0XXA Fall on same level from slipping, tripping and stumbling without subsequent striking against object, initial encounter; E03.9 Hypothyroidism, unspecified; Z79.890 Hormone replacement therapy
CPT/HCPCS: 73030; 99283

== ENCOUNTER → 2025-03-27 | Outpatient (CLI) | payer MEDICARE, OTHER, SELFPAY ==
--- NOTE | 2025-03-27 12:17 | CT_ITS ---
PROCEDURE: EXTREMITY UPPER WITHOUT CONTRA 03/27/2025 REASON FOR EXAM: DISP FX OF SURGICAL NECK OF RIGHT HUMERUS TECHNIQUE: Procedure Code: [id number] Modality: CT Procedure: EXTREMITY UPPER WITHOUT CONTRA Coronal and Sagittal reconstruction series were provided of the right humerus. One or more dose reduction techniques were used (e.g., Automated exposure control, adjustment of the mA and/or kV according to patient size, use of iterative reconstruction technique. RADIATION DOSE SUMMARY: DLP: 667 mGycm COMPARISON: None FINDINGS: There is a comminuted fracture of the right humeral head and neck with fracture components extending to the superolateral aspect, deep to the supraspinatus and infraspinatus insertions, and through the biceps tendon groove. There is slight impaction and 0.5 cm displacement of the humeral head neck junction. A fracture component is noted extending to the posterior inferior articular surface. The glenoid appears intact. The distal clavicle and acromion are aligned. There is a visible joint effusion. There is no hematoma identified in the adjacent soft tissues. There is no adenopathy or significant atherosclerosis. The ribs and adjacent lung appear intact. CT/Extremity Upper without Contra IMPRESSION: There is a comminuted fracture of the right humeral head and neck with fracture components extending to the superolateral aspect, deep to the supraspinatus and infraspinatus insertions, and through the biceps tendon groove. There is slight impaction and 0.5 cm displacement of the humeral head neck junc tion. A fracture component is noted extending to the posterior inferior articular martínez face. Reading Location: [facility]
--- OUTSIDE RECORDS SUMMARY | 2025-03-27 12:38 | XMS RPT_ITS | CCD ---
Author Organization [facility] Care Team Providers Care Test Clerk Name Role Phone Unavailable Primary Care Provider Unavailabl e Haagen SAFE DEPOSIT BOX RENTAL CLERK.MADELINE, Grace Primary Care Provider Haagen SAFE DEPOSIT BOX RENTAL CLERK.COMBER TENDER, Grace Primary Care Provider Haagen SAFE DEPOSIT BOX RENTAL CLERK.COMBER TENDER, Grace Primary Care Provider HAAGEN, GRACE Primary Care Unavailable VETOVITZ, JULI Referring Unavailable HAAGEN, GRACE Primary Care Unavailable VETOVITZ, JULI Referring Unavailable HAAGEN, GRACE Primary Care Unavailable VETOVITZ, JULI Referring Unavailable VETOVITZ, JULI Referring Unavailable HAAGEN, GRACE Primary Care Unavailable HAAGEN, GRACE Primary Care Unavailable PROVIDER, UNKNOWN Admitting Unavailable PROVIDER, UNKNOWN Attending Unavailable Haagen SAFE DEPOSIT BOX RENTAL CLERK.MADELINE, Grace Primary Care Provider Haagen SAFE DEPOSIT BOX RENTAL CLERK.COMBER TENDER, Grace Primary Care Provider Suppan SAFE DEPOSIT BOX RENTAL CLERK.Nadya CORREA Unavailable [phone] Chai Rico MD Unavailable BENDARAM, DIOR MELTON Attending Unavaila ble [...] Unavaila ble HAAGEN, GRACE Primary Care Unavailable Haagen MEDIA ANALYST-C [facility] Primary Care Provider Nadya Mcdonald Attending Provider Nadya Mcdonald Referring Provider Jia MEDIA ANALYST, [facility] Primary Care Unavailable Nadya Mclean Referring Unavailable Nadya Mclean Attending Unavailable Jia MEDIA ANALYST, [facility] Primary Care Unavailable Evelyn Adler Attending Unavailable Jia COFFEY, [facility] Primary Care Unavailable Elodia Gandara Referring Unavailable Elodia Gandara Attending Unavailable Allergies Allergy Classification Reported Allergen(s) Allergy Type Date of Onset Reaction(s) Facility (20 sources) Cortisone; Translations: [CORTISONE] Drug Allergy 09-25-2021 [facility] (7 sources) Influenza Virus Vaccines; Translations: [INFLUENZA VIRUS VACCINES] Drug Allergy 09-25-2021 [facility] (2 sources) Latex Allergy to substance 12-28-[address] [facility] (20 sources) Influenza Virus Vaccines Drug Allergy 09-25-2021 [facility] (1 source) Latex Drug allergy (disorder) 03-22-[address] [facility] Repository Medications Current Medications Medication Drug Class(es) [...] Translations: [Mixed hyperlipidemia] Onset: 08-07-2024 07-18-2024 Chronic Fracture of upper limb (2 sources) Unspecified displaced fracture of surgical neck of right humerus, initial encounter for closed fracture; Translations: [Unspecified fracture of upper end of right humerus, initial encounter for closed fracture] Onset: 03-22-2025 Episodic Osteoarthritis (20 sources) Osteoarthrosis of the carpometacarpal joint of the thumb; Translations: [Unilateral primary osteoarthritis of first carpometacarpal joint, right hand] Onset: 07-21-2022 Chronic Other connective tissue disease (4 sources) Pain in right thumb; Translations: [Pain in right finger(s)] Episodic Thyroid disorders (7 sources) Myriam thyroiditis; [...] Translations: [Thumb joint stiffness] Onset: 07-21-2022 Episodic Other screening for suspected conditions (not mental disorders or infectious disease) (7 sources) Patient encounter status; Translations: [Encounter for screening mammogram for malignant neoplasm of breast] Onset: 08-31-2023 Episodic Results Test Name Value Interpretation Reference Range Facil [facility] Emergency Department Summary on 03-22-2025 Emergency Department Summary [facility] Medical Records Department [address] [place] [address] Emergency Department Summary 03/22/25 MR#: [id number] Acct: [id number] Name: DEANNE SÁNCHEZ Rep #: [id number] : 1960 64 From: Bonnie Adler DO PCP: MOISES Xiong Status:DEP ER Location: ED HPI History of Present Illness Chief Complaint: Upper Extremity Injury Detail of Chief Complaint: Right shoulder injury Informant: patient Narrative Narrative: Patient presents to the emergency department with a right shoulder injury. Patient was texting her when she tripped on the sidewalk and fell. She tried to catch herself but landed on her right shoulder. Did not strike her head. No loss of consciousness. She is not anticoagulated. She is right-hand dominant. Having pain with range of motion. PFSH PFSH Medical History (Updated 03/22/25 @ 19:[address] Bonnie Adler, DO) Hypothyroid Home Medications ???Medication ???Instructions ???Recorded ???Last Taken ???Type hydrocodone-acetaminop hen 5-325mg 1 tab PO Q4H PRN PRN Pain 2 days 03/22/25 Unknown Rx 5mg-325mg #15 TABLETS levothyroxine 25 mcg tablet 25 mcg PO DAILY 03/22/25 Unknown H istory Allergy/AdvReac Type Severity Reaction Status Date / Time latex Allergy Rash Verified 03/22/25 18:28 Family History Other Heart disease Surgical History H/O knee surgery Social History (Updated 03/22/25 @ 18:56 by Juana Sebastian) household members: spouse Smoking Status: Never smoker ROS ROS ED Review of Systems ROS Unobtainable: other Constitutional Constitutional ED: Reports lethargy; Denies chills, fever(s), sweats or weight loss Eyes Eyes: Denies blurry vision, change in vision or diplopia ENT ENT ED: Denies rhinorrhea or sore throat Cardiovascular Cardiovascular: Denies chest pain, orthopnea or racing heartbeat Respiratory/Chest Respiratory/Chest: Denies cough, dyspnea, dyspnea on exertion, orthopnea or sputum Gastrointestinal Gastrointestinal: Denies abdominal pain, diarrhea, nausea or vomiting Genitourinary Genitourinary ED: Denies dysuria, hematuria or urinary frequency Musculoskeletal Musculoskeletal: Reports other Details: Right shoulder pain/injury ; Denies arthralgias, back pain, myalgias or neck pain Integumentary Denies abscess, Abrasions or rash Neurologic Neurologic: Denies headache(s) or weakness Psychiatric Psychiatric: Denies anxiety, depression or suicidal thoughts Endocrine Endocrinology: Denies polydipsia, polyphagia or polyuria Hematologic/Lymphatic Hematologic/Lymphatic: Denies easy bleeding, easy bruising or lymphadenopathy Allergic/Immunologic Allergic/Immunologic ED: Denies mouth swelling, tongue swelling or urticaria EXAM Physical Exam Const Vital Signs: 03/22/25 18:25 Temperature 98.2 F Temperature Source Temporal Pulse Rate 59 L Respiratory Rate 14 Blood Pressure 121/74 H Blood Pressure Mean 89 Pulse Ox 100 Oxygen Delivery Method Room Air Positive well nourished and well developed General Appearance ED: well developed and NAD HEENT Reports TM's clear and moist mucous membranes normocephalic and atraumatic; Negative for trauma or tenderness Tympanic Membrane ED: Yes TM's clear Eyes PERRL and EOMs intact bilaterally General Eye ED: Negative for pale conjunctiva or scleral icterus Neck no lymphadenopathy, supple and no JVD General: Negative for tenderness Chest Wall inspection of chest normal and palpation of chest normal Chest: Negative for tenderness Resp normal respiratory effort and clear to auscultation bilaterally Effort and Inspection: Negative for respiratory distress or pain with movement Auscultation: Negative for rhonchi, wheezes or diminished lung sounds Cardio regular rate, regular rhythm, S1 normal heart sound, S2 normal heart sound and no murmurs Peripheral Pulses: pulses 2+ throughout GI normal to inspection, nondistended, normoactive bowel sounds, soft to palpation, non-tender, non- distended and no masses Back/Spine no CVA tenderness and no thoracic nor lumbar tenderness Extremity Extremity Narrative: Right shoulder-patient holds the arm abducted. Do not palpate an obvious sulcus sign although she has a large sweatshirt on. She is neurovascular intact distally. General Extremety ED: Negative for edema General Extremity: Negative for edema Neuro oriented x3, CN's II-XII intact bilaterally, no sensory deficits noted and gait normal Sensorium / Orientation: awake, alert, oriented to person, oriented to place and oriented to time Motor Exam: strength 5/5 throughout and strength abnormal Psych mental status grossly normal Skin no rashes or lesions noted and no wounds MDM MDM (more content not included)... Normal [facility] Shoulder min 2 Viewson 03-22 Shoulder min 2 Views [facility] Imaging Services [address] [place], [place] [id number] Shoulder min 2 Views MR#: [id number] Acct: [id number] Name: DEANNE SÁNCHEZ Rep #: [id number] : 1960 F 64 From: Rai Lynch MD PCP: MOISES Xiong Status: REG ER Study: Shoulder min 2 Views Date of Exam: 03/22/25 Exam# [id number] Ordering Dr: Ungur,Remus DO PROCEDURE: SHOULDER MIN 2 VIEWS 03/22/2025 REASON FOR EXAM: FALL TECHNIQUE: Procedure Code: RAD Modality: DX Procedure: SHOULDER MIN 2 VIEWS Laterality: FINDINGS: Impacted, displaced fracture of the right humeral head/neck. No evidence of dislocation. RAD/Shoulder min 2 Views IMPRESSION: Impacted, displaced humeral head/neck fracture. Reading Location: [address] CC: MEDIA ANALYST-C Grace Ro; Dr. Bonnie Adler DO Welt Rougher: Signed Normal [facility] Breast imaging reportOrdered By: Parviz Leiva on 08-07-2024 Study report [facility] Imaging Services [address] [place] [address] SCRN MAMM (CAD)W/LUIS FERNANDO BILAT MR#: [id number] Acct: [id number] Name: DEANNE SÁNCHEZ Rep #: [id number] : 1960 F 64 From: Alex Leiva MD PCP: MOISES Xiong Status: REG Sahil DELEON Study:SCRN MAMM (CAD)W/LUIS FERNANDO BILAT Date of Exa m: 08/07/24 Exam# [id number] Ordering Dr: Ger Mclean PROCEDURE: SCRN MAMM [...] of the results by letter. Reading Location: [id number] CC: GAS OR WATER METER INSTALLER Nadya Alfietayla; MEDIA ANALYST-C Grace Ro ~ Welt Rougher: Saúl [facility] CBC W Auto Differential pane l (Bld)on 08-07-2024 Basophils (Bld) [#/Vol] 0.03 10*3/uL Normal <0.11 [facility] Comment on above: Order Comment: Speci men Type: BLOOD SPECIMEN Ordering Facility: [facility] Address: [address] [place] [address] Performed By: #### 2 4331-1 #### [facility] CLIA [id number] [address] CLIA [id number] [address] [place] [address] [place] #### 65777-2 #### [facility] CLIA [id number] [address] [place] [address] [place] Basophils/100 WBC (Bld) 0.9 % Normal [facility] Comment on above: Order Comment: Speci men Type: BLOOD SPECIMEN Ordering Facility: [facility] Address: [address] [place] [address] Performed By: #### 2 4331-1 #### [facility] CLIA [id number] [address] CLIA [id number] [address] [place] [address] [place] #### 27151-3 #### [facility] CLIA [id number] [address] [place] [address] [place] Differential cell count method Nom (Bld) Auto Normal [facility] Comment on above: Order Comment: Speci men Type: BLOOD SPECIMEN Ordering Facility: [facility] Address: [address] [place] [address] Performed By: #### 2 4331-1 #### [facility] CLIA [id number] [address] [place] [address] [place] [facility] CLIA [id number] [address] [place] [address] [place] #### 93567-3 #### [facility] CLIA [id number] [address] [place] [address] [place] Eosinophils (Bld) [#/Vol] 0.10 10*3/uL Normal <0.46 [facility] Comment on above: Order Comment: Speci men Type: BLOOD SPECIMEN Ordering Facility: [facility] Address: [address] [place] [address] Performed By: #### 2 4331-1 #### [facility] CLIA [id number] [address] [place] [facility] CLIA [id number] [address] [place] [address] [place] #### 48083-7 #### [facility] CLIA [id number] [address] [place] [address] [place] Eosinophils/100 WBC (Bld) 3.1 % Normal [facility] Comment on above: Order Comment: Speci men Type: BLOOD SPECIMEN Ordering Facility: [facility] Address: [address] [place] [address] Performed By: #### 2 4331-1 #### [facility] CLIA [id number] [address] [place] [address] [place] [facility] CLIA [id number] [address] [place] [address] [place] #### 31677-4 #### [facility] CLIA [id number] [address] [place] [address] [place] Erythrocyte distribution width (RBC) [Ratio] 12.8 % Normal 11.5-15.0 [facility] Comment on above: Order Comment: Speci men Type: BLOOD SPECIMEN Ordering Facility: [facility] Address: [address] [place] [address] Performed By: #### 2 4331-1 #### [facility] CLIA [id number] [address] [place] [address] [place] [facility] CLIA [id number] [address] [place] [address] [place] #### 75547-1 #### [facility] CLIA [id number] [address] [place] [address] [place] Hematocrit (Bld) [Volume fraction] 38.2 % Normal 36.0-46.0 [facility] Comment on above: Order Comment: Speci men Type: BLOOD SPECIMEN Ordering Facility: [facility] Address: [address] [place] [address] Performed By: #### 2 4331-1 #### [facility] CLIA [id number] [address] [place] [address] [place] [facility] CLIA [id number] [address] [place] [address] [place] #### 14056-1 #### [facility] CLIA [id number] [address] [place] [address] [place] Hemoglobin (Bld) [Mass/Vol] 12.6 g/dL Normal 11.5-15.5 [facility] Comment on above: Order Comment: Speci men Type: BLOOD SPECIMEN Ordering Facility: [facility] Address: [address] [place] [address] Performed By: #### 2 4331-1 #### [facility] CLIA [id number] [address] [place] [address] [place] [facility] CLIA [id number] [address] [place] [address] [place] #### 80445-7 #### [facility] CLIA [id number] [address] [place] [address] [place] Immature granulocytes (Bld) [#/Vol] 10*3/uL Normal <0.10 [facility] Comment on above: Order Comment: Speci men Type: BLOOD SPECIMEN Ordering Facility: [facility] Address: [address] [place] [address] Performed By: #### 2 4331-1 #### [facility] CLIA [id number] [address] [place] [facility] CLIA [id number] [address] [place] [address] [place] #### 19762-6 #### [facility] CLIA [id number] [address] [place] [address] [place] Immature granulocytes/100 WBC (Bld) 0.0 % Normal [facility] Comment on above: Order Comment: Speci men Type: BLOOD SPECIMEN Ordering Facility: [facility] Address: [address] [place] [address] Performed By: #### 2 4331-1 #### [facility] CLIA [id number] [address] [place] [address] [place] [facility] CLIA [id number] [address] [place] [address] [place] #### 28024-7 #### [facility] CLIA [id number] [address] [place] [address] [place] Lymphocytes (Bld) [#/Vol] 1.02 10*3/uL Normal 1.00-4.00 [facility] Comment on above: Order Comment: Speci men Type: BLOOD SPECIMEN Ordering Facility: [facility] Address: [address] [place] [address] Performed By: #### 2 4331-1 #### [facility] CLIA [id number] [address] [place] [facility] CLIA [id number] [address] [place] [address] [place] #### 35368-2 #### [facility] CLIA [id number] [address] [place] [address] [place] Lymphocytes/100 WBC (Bld) 32.1 % Normal [facility] Comment on above: Order Comment: Speci men Type: BLOOD SPECIMEN Ordering Facility: [facility] Address: [address] [place] [address] Performed By: #### 2 4331-1 #### [facility] CLIA [id number] [address] [place] [address] [place] [facility] CLIA [id number] [address] [place] [address] [place] #### 37101-5 #### [facility] CLIA [id number] [address] [place] [address] [place] MCH (RBC) [Entitic mass] 29.3 pg Normal 26.0-34.0 [facility] Comment on above: Order Comment: Speci men Type: BLOOD SPECIMEN Ordering Facility: [facility] Address: [address] [place] [address] Performed By: #### 2 4331-1 #### [facility] CLIA [id number] [address] [place] [address] [place] [facility] CLIA [id number] [address] [place] [address] [place] #### 81957-1 #### [facility] CLIA [id number] [address] [place] [address] [place] MCHC (RBC) [Mass/Vol] 33.0 g/dL Normal 30.5-36.0 [facility] Comment on above: Order Comment: Speci men Type: BLOOD SPECIMEN Ordering Facility: [facility] Address: [address] [place] [address] Performed By: #### 2 4331-1 #### [facility] CLIA [id number] [address] OF [facility] CLIA [id number] [address] [place] [address] [place] #### 97880-1 #### [facility] CLIA [id number] [address] [place] [address] [place] MCV (RBC) [Entitic vol] 88.8 fL Normal 80.0-100.0 [facility] Comment on above: Order Comment: Speci men Type: BLOOD SPECIMEN Ordering Facility: [facility] Address: [address] [place] [id number] Performed By: #### 2 4331-1 #### [facility] CLIA [id number] [address] CLIA [id number] [address] [place] [address] [place] #### 59162-7 #### [facility] CLIA [id number] [address] [place] [address] [place] Monocytes (Bld) [#/Vol] 0.25 10*3/uL Normal <0.87 [facility] Comment on above: Order Comment: Speci men Type: BLOOD SPECIMEN Ordering Facility: [facility] Address: [address] [place] [id number] Performed By: #### 2 4331-1 #### [facility] CLIA [id number] [address] STATES OF [facility] CLIA [id number] [address] [place] [address] [place] #### 78468-5 #### [facility] CLIA [id number] [address] [place] [address] [place] Monocytes/100 WBC (Bld) 7.9 % Normal [facility] Comment on above: Order Comment: Speci men Type: BLOOD SPECIMEN Ordering Facility: [facility] Address: [address] [place] [address] Performed By: #### 2 4331-1 #### [facility] CLIA [id number] [address] [place] [address] [place] [facility] CLIA [id number] [address] [place] [address] [place] #### 85757-5 #### [facility] CLIA [id number] [address] [place] [address] [place] Neutrophils (Bld) [#/Vol] 1.78 10*3/uL Normal 1.45-7.50 [facility] Comment on above: Order Comment: Speci men Type: BLOOD SPECIMEN Ordering Facility: [facility] Address: [address] [place] [address] Performed By: #### 2 4331-1 #### [facility] CLIA [id number] [address] [place] [address] [place] [facility] CLIA [id number] [address] [place] [address] [place] #### 92883-9 #### [facility] CLIA [id number] [address] [place] [address] [place] Neutrophils/100 WBC (Bld) 56.0 % Normal [facility] Comment on above: Order Comment: Speci men Type: BLOOD SPECIMEN Ordering Facility: [facility] Address: [address] [place] [address] Performed By: #### 2 4331-1 #### [facility] CLIA [id number] [address] [place] [address] [place] [facility] CLIA [id number] [address] [place] [address] [place] #### 98052-2 #### [facility] CLIA [id number] [address] [place] [address] [place] Nucleated RBC (Bld) [#/Vol] 10*3/uL Normal <0.01 [facility] Comment on above: Order Comment: Speci men Type: BLOOD SPECIMEN Ordering Facility: [facility] Address: [address] [place] [address] Performed By: #### 2 4331-1 #### [facility] CLIA [id number] [address] [place] [facility] CLIA [id number] [address] [place] [address] [place] #### 12108-4 #### [facility] CLIA [id number] [address] [place] [address] [place] Nucleated RBC/100 WBC (Bld) [Ratio] 0.0 /100 WBC Normal [facility] Comment on above: Order Comment: Speci men Type: BLOOD SPECIMEN Ordering Facility: [facility] Address: [address] [place] [address] Performed By: #### 2 4331-1 #### [facility] CLIA [id number] [address] [place] [facility] CLIA [id number] [address] [place] [address] [place] #### 70321-5 #### [facility] CLIA [id number] [address] [place] [address] [place] Platelet mean volume (Bld) [Entitic vol] 10.2 fL Normal 9.0-12.7 [facility] Comment on above: Order Comment: Speci men Type: BLOOD SPECIMEN Ordering Facility: [facility] Address: [address] [place] [address] Performed By: #### 2 4331-1 #### [facility] CLIA [id number] [address] STATES OF [facility] CLIA [id number] [address] [place] [address] [place] #### 33718-8 #### [facility] CLIA [id number] [address] [place] [address] [place] Platelets (Bld) [#/Vol] 224 10*3/uL Normal 150-400 [facility] Comment on above: Order Comment: Speci men Type: BLOOD SPECIMEN Ordering Facility: [facility] Address: [address] [place] [address] Performed By: #### 2 4331-1 #### [facility] CLIA [id number] [address] [place] [address] [place] [facility] CLIA [id number] [address] [place] [address] [place] #### 95437-5 #### [facility] CLIA [id number] [address] [place] [address] [place] RBC (Bld) [#/Vol] 4.30 10*6/uL Normal 3.90-5.20 [facility] Comment on above: Order Comment: Speci men Type: BLOOD SPECIMEN Ordering Facility: [facility] Address: [address] [place] [address] Performed By: #### 2 4331-1 #### [facility] CLIA [id number] [address] [place] [address] [place] [facility] CLIA [id number] [address] [place] [address] [place] #### 02747-0 #### [facility] CLIA [id number] [address] [place] [address] [place] WBC (Bld) [#/Vol] 3.18 10*3/uL Low 3.70-11.00 [facility] Comment on above: Order Comment: Speci men Type: BLOOD SPECIMEN Ordering Facility: [facility] Address: [address] [place] [address] Performed By: #### 2 4331-1 #### [facility] CLIA [id number] [address] STATES OF [facility] CLIA [id number] [address] [place] [address] [place] #### 74913-7 #### [facility] CLIA [id number] [address] [place] [address] [facility] Comprehensive metabolic 2000 panelon 08-07-2024 Albumin [Mass/Vol] 4.0 g/dL Normal 3.9-4.9 [facility] Comment on above: Order Comment: Speci men Type: BLOOD SPECIMEN Ordering Facility: [facility] Address: [address] [place] [address] Performed By: #### 2 4331-1 #### [facility] CLIA [id number] [address] STATES OF [facility] CLIA [id number] [address] [place] [address] [place] #### 44285-0 #### [facility] CLIA [id number] [address] [place] [address] [place] ALP [Catalytic activity/Vol] 83 U/L Normal 34-123 [facility] Comment on above: Order Comment: Speci men Type: BLOOD SPECIMEN Ordering Facility: [facility] Address: [address] [place] [address] Performed By: #### 2 4331-1 #### [facility] CLIA [id number] [address] STATES OF [place] [facility] [place] CLIA [id number] [address] [place] [address] [place] #### 52827-2 #### [facility] [place] CLIA [id number] [address] [place] [address] [place] ALT [Catalytic activity/Vol] 10 U/L Normal 7-38 [facility] Comment on above: Order Comment: Speci men Type: BLOOD SPECIMEN Ordering Facility: [facility] Address: [address] [place] [address] Performed By: #### 2 4331-1 #### [facility] CLIA [id number] 1 [place] [address] [place] [facility] CLIA [id number] [address] [place] [address] [place] #### 43020-9 #### [facility] CLIA [id number] [address] [place] [address] [place] Anion gap [Moles/Vol] 11 mmol/L Normal 8-15 [facility] Comment on above: Order Comment: Speci men Type: BLOOD SPECIMEN Ordering Facility: [facility] Address: [address] [place] [address] Performed By: #### 2 4331-1 #### [facility] CLIA [id number] 1 [place] [address] [place] [facility] CLIA [id number] [address] [place] [address] [place] #### 15087-8 #### [facility] CLIA [id number] [address] [place] [address] [place] AST [Catalytic activity/Vol] 16 U/L Normal 13-35 [facility] Comment on above: Order Comment: Speci men Type: BLOOD SPECIMEN Ordering Facility: [facility] Address: [address] [id number] Performed By: #### 2 4331-1 #### [facility] CLIA [id number] [address] OF [facility] CLIA [id number] [address] [place] [address] [place] #### 80773-1 #### [facility] CLIA [id number] [address] [place] [address] [place] Bilirubin [Mass/Vol] 0.4 mg/dL Normal 0.2-1.3 [facility] Comment on above: Order Comment: Speci men Type: BLOOD SPECIMEN Ordering Facility: [facility] Address: [address] [place] [address] Performed By: #### 2 4331-1 #### [facility] CLIA [id number] [address] STATES OF [facility] CLIA [id number] [address] [place] [address] [place] #### 09025-5 #### [facility] CLIA [id number] [address] [place] [address] [place] Calcium [Mass/Vol] 9.3 mg/dL Normal 8.5-10.2 [facility] Comment on above: Order Comment: Speci men Type: BLOOD SPECIMEN Ordering Facility: [facility] Address: [address] [place] [address] Performed By: #### 2 4331-1 #### [facility] CLIA [id number] [address] STATES OF [facility] CLIA [id number] [address] [place] [address] [place] #### 29004-7 #### [facility] CLIA [id number] [address] [place] [address] [place] Chloride [Moles/Vol] 102 mmol/L Normal 98-107 [facility] Comment on above: Order Comment: Speci men Type: BLOOD SPECIMEN Ordering Facility: [facility] Address: [address] [place] [address] Performed By: #### 2 4331-1 #### [facility] CLIA [id number] [address] OF [facility] CLIA [id number] [address] [place] [address] [place] #### 44090-8 #### [facility] CLIA [id number] [address] [place] [address] [place] CO2 [Moles/Vol] 26 mmol/L Normal 22-30 [facility] Comment on above: Order Comment: Speci men Type: BLOOD SPECIMEN Ordering Facility: [facility] Address: [address] [place] [address] Performed By: #### 2 4331-1 #### [facility] CLIA [id number] 1 [place] [address] [place] [facility] CLIA [id number] [address] [place] [address] [place] #### 61587-1 #### [facility] CLIA [id number] [address] [place] [address] [place] Creatinine [Mass/Vol] 0.69 mg/dL Normal 0.58-0.96 [facility] Comment on above: Order Comment: Speci men Type: BLOOD SPECIMEN Ordering Facility: [facility] Address: [address] [place], [place] [address] Performed By: #### 2 4331-1 #### [facility] CLIA [id number] 1 [place] [address] [place] [facility] CLIA [id number] [address] [place] [address] [place] #### 88870-1 #### [facility] CLIA [id number] [address] [place] [address] Creatinine and Glomerular filtration rate.predicted panel (S/P/Bld) 96 mL/min/1.73m??? Normal >=60 [facility] Comment on above: Order Comment: Malcolm cordero Type: BLOOD SPECIMEN Ordering Facility: [facility] Address: [address] [place] [address] Result Comment: Esthela mated Glomerular Filtration Rate [...] GFR. Performed By: #### 2 4331-1 #### [facility] [facility] CLIA [id number] [address] [place] [address] CLIA [id number] [address] [place] [address] #### 30399-5 #### [facility] CLIA [id number] [address] [place] [address] Glucose [Mass/Vol] 92 mg/dL Normal 74-99 [facility] Comment on above: Order Comment: Malcolm cordero Type: BLOOD SPECIMEN Ordering Facility: [facility] Address: [address] [id number] Result Comment: The [place] Diabetes Association (ADA) provides guidance for cutoff [...] Standards of Medical Care in Diabetes 2016, [place] Diabetes Association. Diabetes Care. 2016.39(Suppl 1). Performed By: #### 2 4331-1 #### [facility] CLIA [id number] [address] CLIA [id number] [address] [place] [address] [place] #### 19165-0 #### [facility] CLIA [id number] [address] [place] [address] [place] Potassium [Moles/Vol] 4.6 mmol/L Normal 3.7-5.1 [facility] Comment on above: Order Comment: Speci men Type: BLOOD SPECIMEN Ordering Facility: [facility] Address: [address] [place] [address] Performed By: #### 2 4331-1 #### [facility] CLIA [id number] [address] CLIA [id number] [address] [place] [address] [place] #### 93466-2 #### [facility] CLIA [id number] [address] [place] [address] [place] Protein [Mass/Vol] 6.8 g/dL Normal 6.3-8.0 [facility] Comment on above: Order Comment: Speci men Type: BLOOD SPECIMEN Ordering Facility: [facility] Address: [address] [place] [address] Performed By: #### 2 4331-1 #### [facility] CLIA [id number] [address] STATES OF [facility] CLIA [id number] [address] [place] [address] [place] #### 60796-5 #### [facility] CLIA [id number] [address] [place] [address] [place] Sodium [Moles/Vol] 139 mmol/L Normal 136-144 [facility] Comment on above: Order Comment: Speci men Type: BLOOD SPECIMEN Ordering Facility: [facility] Address: [address] [place] [address] Performed By: #### 2 4331-1 #### [facility] CLIA [id number] 1 [place] [address] [place] [facility] CLIA [id number] [address] [place] [address] [place] #### 13570-5 #### [facility] CLIA [id number] [address] [place] [address] [place] Urea nitrogen [Mass/Vol] 16 mg/dL Normal 7-21 [facility] Comment on above: Order Comment: Speci men Type: BLOOD SPECIMEN Ordering Facility: [facility] Address: [address] [place] [address] Performed By: #### 2 4331-1 #### [facility] CLIA [id number] 1 [place] [address] [place] [facility] CLIA [id number] [address] [place] [address] [place] #### 62197-0 #### [facility] CLIA [id number] [address] [place] [address] [place] Lipid 1996 panelon 5 Cholesterol [Mass/Vol] 260 mg/dL High <200 [facility] Comment on above: Order Comment: Speci men Type: BLOOD SPECIMEN Ordering Facility: [facility] Address: [address] [id number] Result Comment: <200 mg/dL, Desirable 200-239 mg/dL, Borderline high >239 mg/dL, High Performed By: #### 2 4331-1 #### [facility] CLIA [id number] [address] CLIA [id number] [address] [place] [address] OF [place] #### 00205-5 #### [facility] CLIA [id number] [address] [place] [address] [place] Cholesterol in HDL [Mass/Vol] 98 mg/dL Normal >39 [facility] Comment on above: Order Comment: Speci men Type: BLOOD SPECIMEN Ordering Facility: [facility] Address: [address] [place] [address] Result Comment: 40-5 9 mg/dL, Acceptable >59 mg/dL, High: Negative risk factor for coronary heart disease <40 mg/dL, Low: Positive risk factor for coronary heart disease Performed By: #### 2 4331-1 #### [facility] CLIA [id number] [address] CLIA [id number] [address] [place] [address] #### 15776-2 #### [facility] CLIA [id number] [address] [place] [address] Cholesterol in LDL [Mass/Vol] 146 mg/dL High <100 [facility] Comment on above: Order Comment: Speci men Type: BLOOD SPECIMEN Ordering Facility: [facility] Address: [address] [place] [address] Result Comment: <100 mg/dL, Optimal 100-129 mg/dL, Near optimal/above optimal 130-159 mg/dL, Borderline high 160-189 mg/dL, High >189 mg/dL, Very high Secondary prevention optimal LDL Cholesterol levels are recommended to be < 70 mg/dL Performed By: #### 2 4331-1 #### [facility] CLIA [id number] [address] [facility] [address] CLIA [id number] [address] [place] [address] [place] #### 44489-8 #### [facility] CLIA [id number] [address] [place] [address] [place] Cholesterol in LDL/Cholesterol in HDL [Mass ratio] 1.49 {ratio} Normal <2.54 [facility] Comment on above: Order Comment: Speci men Type: BLOOD SPECIMEN Ordering Facility: [facility] Address: [address] [place] [address] Result Comment: Gia tucker: 1. National Cholesterol Education Program ATP III Guideline At-A-Glance Quick Desk Reference: National Heart, Lung, and Blood [place]. National Institutes of Health. 2001: NIH Publication No. 01-3305. 2. An International Atherosclerosis Society position paper: global recommendations for the management of dyslipidemia: executive summary, Atherosclerosis. 2014: 232(2):410-413. Performed By: #### 2 4331-1 #### [facility] CLIA [id number] [address] CLIA [id number] [address] [place] [address] [place] #### 47566-4 #### [facility] CLIA [id number] [address] [place] [address] [place] Cholesterol in VLDL [Mass/Vol] 16 mg/dL Normal <30 [facility] Comment on above: Order Comment: Speci men Type: BLOOD SPECIMEN Ordering Facility: [facility] Address: [address] [place] [address] Performed By: #### 2 4331-1 #### [facility] CLIA [id number] [address] STATES OF [facility] CLIA [id number] [address] [place] [address] [place] #### 77519-5 #### [facility] CLIA [id number] [address] [place] [address] [place] Cholesterol non HDL [Mass/Vol] 162 mg/dL High <130 [facility] Comment on above: Order Comment: Speci men Type: BLOOD SPECIMEN Ordering Facility: [facility] Address: [address] [place] [address] Result Comment: <130 mg/dL, Optimal 130-159 mg/dL, Near optimal/above optimal 160-189 mg/dL, Borderline high 190-219 mg/dL, High >219 mg/dL, Very high Secondary prevention optimal non HDL Cholesterol levels are recommended to be <100 mg/dL Performed By: #### 2 4331-1 #### [facility] CLIA [id number] 1 [place] [address] [place] [facility] CLIA [id number] [address] [place] [address] [place] #### 34536-2 #### [facility] CLIA [id number] [address] [place] [address] [place] Cholesterol.total/C holesterol in HDL [Mass ratio] 2.65 {ratio} Normal <5.10 [facility] Comment on above: Order Comment: Speci men Type: BLOOD SPECIMEN Ordering Facility: [facility] Address: [address] [place] [address] Performed By: #### 2 4331-1 #### [facility] CLIA [id number] 1 [place] [address] [place] [facility] CLIA [id number] [address] [place] [address] [place] #### 49106-5 #### [facility] CLIA [id number] [address] [place] [address] [place] FASTING TIME 12 hrs Normal [facility] Comment on above: Order Comment: Speci men Type: BLOOD SPECIMEN Ordering Facility: [facility] Address: [address] [place] [address] Performed By: #### 2 4331-1 #### [facility] CLIA [id number] [address] CLIA [id number] [address] [place] [address] [place] #### 04796-7 #### [facility] CLIA [id number] [address] [place] [address] [place] Triglyceride [Mass/Vol] 81 mg/dL Normal <150 [facility] Comment on above: Order Comment: Speci men Type: BLOOD SPECIMEN Ordering Facility: [facility] Address: [address] [place] [address] Result Comment: <150 mg/dL, Normal 150-199 mg/dL, Borderline high 200-499 mg/dL, High >499 mg/dL, Very high Performed By: #### 2 4331-1 #### [facility] CLIA [id number] [address] CLIA [id number] [address] [place] [address] [place] #### 10440-0 #### [facility] CLIA [id number] [address] [place] [address] [place] SCRN MAMM (CAD)W/LUIS FERNANDO BILATo n 08-07-2024 SCRN MAMM (CAD)W/LUIS FERNANDO BILAT [facility] Services [address] [place], [place] [address] SCRN MAMM (CAD)W/LUIS FERNANDO BILAT MR#: [id number] Acct: [id number] Name: DEANNE SÁNCHEZ Rep #: [id number] : 1960 F 64 From: Parviz kat MD PCP: MOISES Xiong Status: REG CLI Study: SCRN MAMM (CAD)W/LUIS FERNANDO BILAT Date of Exam: 08/29 Exam# [id number] Ordering Dr: Nadya Mclean PROCEDURE: SCRN MAMM [...] of the results by letter. Reading Location: [facility]Y CC: ZEB Mclean; MOISES Ro Welt Rougher: Signed Ladi [facility] CNOVon 07-18-2024 CNOV Office Visit (SYLWIAPWS ) DEANNE SÁNCHEZ ([id number]) 1960 F Date Time Provider Department 07/18/24 10:00 AM GRACE RO During your visit today, we recorded the following information about you: Pulse Respiration Blood pressure 54/minute 16/minute 138/90 Grace Ro APRN.COMBER TENDER 07/18/2024 4:47 PM Signed Deanne Sánchez is [...] MUSCULOSKELETAL: left knee, right hip, left thumb "acts up." SKIN: followed w/ dermatology. Areas are fading. [...] - Personalized prevention plan provided Grace Ro APRN.COMBER TENDER 07/18/2024 10:42 AM Addendum We can fax [...] review all the medicines you take, even fjcn-wer-puerbup medicines. As you get older, the way medicines work in your body can change. Some medicines, or combinations of medicines, (more content not included)... Normal [facility] CNOVon 07-03-2024 CNOV Office Visit (ENWSTR ) DEANNE SÁNCHEZ ([id number]) 1960 F Date Time Provider Department 07/03/24 11:40 AM DIOR MONTOYA During your visit today, we recorded the following information about you: Temperature Pulse Blood pressure Weight 96.2 degrees 68/minute 136/72 82.3 kg Dior Montoya MD 07/05/2024 7:02 PM Signed [facility] Follow up note CONSULTED BY: Haylee Watson APRN. COMBER TENDER My final recommendations will be communicated back to the requesting provider by way of shared Medical record or a letter via [place] mail History of present illness: Deanne Sánchez is a 63 year old female here to follow up of hypothyroidism. Initial visit on 08/31/2023 She was seen by catalogue librarian for non-itching lesions on skin (looks like scalds), for the last year, and antibodies were checked "for diagnoses of Cali's syndrome", which revealed high titers of TPO Thyroid [...] Reactions Cortisone Hives States it turns her "legs purple". Influenza Virus Vac* Hives States it turns [...] Granuloma annulare 2023 [facility] PAST SURGICAL HISTORY: PAST SURGICAL HISTORY Procedure [...] Moderate Dior Montoya MD Endocrinology Associate Staff [facility] (more content not included)... Normal [facility] T4 Free SerPl-mCncon 025 Free T4 [Mass/Vol] 1.1 ng/dL Normal 0.9-1.7 [facility] Comment on above: Order Comment: Malcolm cordero Type: BLOOD SPECIMEN Ordering Facility: [facility] Address: [address] [place] [address] Performed By: #### 2 4331-1 #### [facility] CLIA [id number] [address] CLIA [id number] [address] [place] [address] [place] #### 75099-3 #### [facility] CLIA [id number] [address] [place] [address] [place] TSH SerPl-aCncon 06-22-2024 TSH Qn 2.250 m[IU]/L Normal 0.270-4.200 [facility] Comment on above: Order Comment: Specloreto cordero Type: BLOOD SPECIMEN Ordering Facility: [facility] Address: [address] [place] [address] Performed By: #### 2 4331-1 #### [facility] CLIA [id number] [address] CLIA [id number] [address] [place] [address] [place] #### 29155-4 #### [facility] [place] [id number] [id number] [place] [address] OF [facility] CNOVon 03-02-2024 CNOV Office Visit (ENWSTR ) DEANNE SÁNCHEZ ([id number]) 1960 F Date Time Provider Department 03/02/24 9:40 AM DIOR MONTOYA ENWSTR During your visit today, we recorded the following information about you: Pulse Respiration Weight Height 56/minute 19/minute 83 kg 1.753 m Diro Montoya MD 03/02/2024 12:54 PM Addendum [facility] Follow up note CONSULTED BY: Haylee Watson APRN. COMBER TENDER My final recommendations will be communicated back to the requesting provider by way of shared Medical record or a letter via U.[place] mail History of present illness: Deanne Sánchez is a 63 year old female here to establish care for hypothyroidism. She was seen by catalogue librarian for non-itching lesions on skin (looks like scalds), for the last year, and antibodies were checked "for diagnoses of Cali's syndrome", which revealed high titers of TPO Thyroid [...] Reactions Cortisone Hives States it turns her "legs purple". Influenza Virus Vac* Hives States it turns [...] 56 Resp 19 Ht 175.3 cm (5' 9") Wt 83 kg (183 lb) SpO2 98% [...] Moderate Dior Montoya MD Endocrinology Associate Staff [facility] Endocrinology and Metabolism [place] 330-2 (more content not included)... Normal [facility] T4 Free SerPl-mCncon 024 Free T4 [Mass/Vol] 1.2 ng/dL Normal 0.9-1.7 [facility] Comment on above: Order Comment: Speci men Type: BLOOD SPECIMEN Ordering Facility: [facility] Address: [address] [place] [address] Performed By: #### 3 016-3, 3024-7 #### [facility] CLIA [id number] [address] [place] [address] [place] TSH SerPl-aCncon 10-21-2023 TSH Qn 2.280 m[IU]/L Normal 0.270-4.200 [facility] Comment on above: Order Comment: Speci men Type: BLOOD SPECIMEN Ordering Facility: [facility] Address: [address] [place] [address] Performed By: #### 3 016-3, 3024-7 #### [facility] CLIA [id number] [address] [place] [address] [place] CNOVon 08-31-2023 CNOV Office Visit (ENWSTR ) DEANNE SÁNCHEZ ([id number]) 1960 F Date Time Provider Department 08/31/23 1:00 PM DIOR MONTOYA During your visit today, we recorded the following information about you: Pulse Respiration Blood pressure Weight 63/minute 18/minute 128/86 85.8 kg Height 1.753 m Dior Montoya MD 08/31/2023 7:48 PM Signed [facility] Initial Clinic Visit Note CONSULTED BY: Haylee Watson APRN. COMBER TENDER My final recommendations will be communicated back to the requesting provider by way of shared Medical record or a letter via [place] mail Subjective: Deanne Sánchez is a 63 year old female here to establish care for hypothyroidism. She was seen by catalogue librarian for non-itching lesions on skin (looks like scalds), for the last year, and antibodies were checked "for diagnoses of Hyannis's syndrome", which revealed high titers of TPO General symptoms: Fatigue: for the last 2 years Weight change: gained about 20 lbs in 2 years Appetite change: always hungry Menstrual irregularities: menopause Change in bowel habits: constipation but now better for the last month Temperature intolerance: "always cold" Dry skin, dry eyes, thinning hair for one year- steroid cream did not work Nails breaking - for the last one year Family history: hypothyroidism in mother, one maternal cousin has hypothyroidism REVIEW OF SYSTEMS: As per HPI ALLERGIES: ALLERGIES Allergen Reactions Cortisone Hives States it turns her "legs purple". Influenza Virus Vac* Hives States it turns [...] 62 Resp 18 Ht 175.3 cm (5' 9") Wt 85.8 kg (189 lb 3.2 oz) [...] daily -Appropriate (more content not included)... Normal [facility] CNTHERAPYon 08-04-2022 CNTHERAPY OT/PT/Speech Visit ([facility]) DEANNE SÁNCHEZ ([id number]) 1960 F Date Time Provider Department 08/04/22 8:00 AM VERONICA MOHAMUD [facility] Date Time Provider Department Center 08/04/2022 8:00 AM [id number] MOHAMUD [facility] Med C Reason for Visit: Occupational Therapy [504] OT Discharge [750] Primary Visit Diagnosis:Thumb joint stiffness [M25.649] Other Visit Diagnosis:Primary osteoarthritis of first carpometacarpal joint of right hand [M18.11] Allergies As of Date: 08/04/2022 Noted Allergy Reaction CORTISONE 09/25/2021 4 - Hives Comments: States it turns her "legs purple". INFLUENZA VIRUS VACCINES 09/25/2021 4 - Hives Comments: States it turns her "legs purple" Date Reviewed: 07/13/2022 Reviewed by: Jannie Mars [...] Veronica Mohamud OT/L on 08/04/2022 8:[address] [facility] CNTHERAPYon 07-21-2022 CNTHERAPY OT/PT/Speech Visit ([facility]) DEANNE SÁNCHEZ ([id number]) 1960 F Date Time Provider Department 07/21/22 8:00 AM [facility] Date Time Provider Department Center 07/21/2022 8:00 AM [id number], LISA [facility] Reason for Visit: Occupational Therapy [504] Primary Visit Diagnosis:Thumb joint stiffness [M25.649] Other Visit Diagnosis:Primary osteoarthritis of first carpometacarpal joint of right hand [M18.11] Allergies As of Date: 07/21/2022 Noted Allergy Reaction CORTISONE 09/25/2021 4 - Hives Comments: States it turns her "legs purple". INFLUENZA VIRUS VACCINES 09/25/2021 4 - Hives Comments: States it turns her "legs purple" Date Reviewed: 07/13/2022 Reviewed by: Jannie Mars Ma - Fully Assessed Prescriptions as of 07/21/2022 - MULTIVITAMIN ORAL Take by mouth. - ergocalciferol, vitamin D2, (VITAMIN D2 ORAL) Take by mouth. - ascorbic acid (VITAMIN C ORAL) Take by mouth. - ZINC ORAL Take by mouth. - MEDICATION, NON-DATABASE Tumeric with herb Letter Text [facility] XR [facility] 3V PA/LAT/OB L RIGHTon 07-13-2022 [facility] CNTHERAPYon 07-07-2022 CNTHERAPY OT/PT/Speech Visit ([facility]) DEANNE SÁNCHEZ ([id number]) 1960 F Date Time Provider Department 07/07/22 3:00 PM VERONICA MOHAMUD [facility] Date Time Provider Department Center 07/07/2022 3:00 PM [id number] [504] Primary Visit Diagnosis:Primary osteoarthritis of first carpometacarpal joint of right hand [M18.11] Allergies As of Date: 07/07/2022 Noted Allergy Reaction CORTISONE 09/25/2021 4 - Hives Comments: States it turns her "legs purple". INFLUENZA VIRUS VACCINES 09/25/2021 4 - Hives Comments: States it turns her "legs purple" Date Reviewed: 06/23/2022 Reviewed by: Galo Warren [...] last updated by Veronica Mohamud OT/L on 07/07/2022 3:[address] [facility] CNTHERAPYon 06-23-2022 CNTHERAPY OT/PT/Speech Visit ([facility]) DEANNE SÁNCHEZ ([id number]) 1960 F Date Time Provider Department 06/23/22 2:15 PM VERONICA MOHAMUD [facility] Date Time Provider Department Center 06/23/2022 2:15 PM [id number] MOHAMUD [facility] Reason for Visit: OT TREMAINE [748] Visit Diagnosis:Primary osteoarthritis of first carpometacarpal joint of right hand [M18.11] Allergies As of Date: 06/23/2022 Noted Allergy Reaction CORTISONE 09/25/2021 4 - Hives Comments: States it turns her "legs purple". INFLUENZA VIRUS VACCINES 09/25/2021 4 - Hives Comments: States it turns her "legs purple" Date Reviewed: 06/23/2022 Reviewed by: Galo Warren [...] EX'S PG4-WRIST last updated by Veronica Mohamud OT/Sylvia on 06/23/2022 2:50 PM Annotated image of OT HAND POST-OP EX'S PG1-WRITTEN INSTRUCTIONS last updated by Veronica Mohamud OT/L on 06/23/2022 2:50 PM [facility] POSTPROC EVALon 023 [facility] POSTPROC EVAL HNO ID: [id number] Author: Freda Hernandez MD Service: Anesthesiology Author Type: Anesthesiologist Type: Anesthesia Postprocedure Evaluation Filed: 06/10/2022 1:06 PM Note Text: POST ANESTHESIA EVALUATION NOTE : 1960 Procedure Summary Date: 06/10/22 Room / Location: [place] [address] / OR OR Anesthesia Start: 1004 Anesthesia Stop: 1138 [...] June 10, 2022 TIME: 1:06 PM CSN: [id number] [facility] ANES PRE-OPon 06-10-2022 ANES PRE-OP HNO ID: [id number] Author: Freda Hernandez MD Service: Anesthesiology Author Type: Anesthesiologist Type: Anesthesia Preprocedure Evaluation Filed: 06/10/2022 9:56 AM Note Text: ANESTHESIOLOGY DAY OF SURGERY NOTE : 1960 Procedure Information Date/Time: 06/10/22939 Procedure: ARTHROPLASTY CARPOMETACARPAL JOINTS (Right: Wrist) Location: OR OR02 / OR OR Surgeons: Galo Warren MD Estimated body mass index is 25.83 kg/m? as calculated from the following: Height as of this encounter: 177.8 cm (5' 10"). Weight as of this encounter: 81.6 kg [...] and consent discussed: yes. Patient / Responsible [employer] agrees to proceed: yes Patient / [...] June 10, 2022 TIME: 8:34 AM CSN: [id number] [facility] NURSING PROGon 06-10-2022 NURSING PROG HNO ID: [id number] Author: Emily Worley RN Service: Nursing Author Type: Registered Nurse Type: Nursing Progress Note Filed: 06/10/2022 10:08 AM Note Text: Other: Dr. Hernandez at bedside for Ultrasound guided Right Supraclavicular nerve block. RN at bedside, pt monitored throughout, BP 125/64 Pulse (!) 53 Temp 36.1 ?C (97 ?F) (Temporal Artery) Resp 16 Ht 177.8 cm (5' 10") Wt 81.6 kg (180 lb) SpO2 100% BMI 25.83 kg/m? . Pt medicated with versed 2mg IV as per MD orders. Pt tolerated procedure without difficulty. Report to Shaina ARREAGA and Cortney RN. Pt was marked to R hand by Dr. Warren and prior nerve tiki. [facility] NURSING PROG HNO ID: [id number] Author: Emily Worley RN Service: Nursing Author Type: Registered Nurse Type: Nursing Progress Note Filed: 06/10/2022 8:35 AM Note Text: Other: pt ready for OR, call light in reach, called to bedside. Needs consent signed prior to OR [facility] OPERATIVE NOon 06-10-2022 OPERATIVE NO HNO ID: [id number] Author: Galo Warren MD Service: Orthopaedic Surgery Author Type: Physician Type: Operative Report Filed: 06/10/2022 1:59 PM Note Text: OPERATIVE/PROCEDURE REPORT LOG ID: [id number] SURGERY/PROCEDURE DATE: 06/10/2022 INCISION/PROCEDURE START TIME: 10:22 AM INCISION CLOSE/PROCEDURE END TIME: 11:25 AM SURGEON(S)/PROCEDURALI ST(S) AND HATCHERY ATTENDANT(S): Surgeon(s) and Role: * Galo Warren MD - Primary Physician Esthetician/Spa Coordinator: Juli Teran PA-C SURGERY/PROCEDURE(S): 1. Right thumb, [...] used a reciprocating saw to score an "x" into the trapezium and then a small osteotome was used to split it in line with the FCR tendon is running deep to it. Both rongeur as well as Marlenyon-Brown with a knife was used to completely remove all the portions of the trapezium. The wound was copiously irrigated and I used a Askov to inspect the joint to make sure [...] a second one was placed in a [id number] fashion to provide a suspension for the [...] procedure wit (more content not included)... Normal [facility] SURGICAL PATHOLOGYon [address] [facility] Comment on above: Order Comment: Specloreto cordero Type: TISSUE SPECIMENOrdering Facility: [facility] Address: [address] [place], [place] [id number] Result Comment: Surg [facility] Pathology Report Case: [id number] Authorizing Provider: Galo Warren MD Collected: 06/10/2022 10:49 AM Ordering Location: [facility] Surgery Received: 06/10/2022 12:29 PM Pathologist: Abisai Acosta MD Specimen: SYNOVIUM, right thumb Performed By: #### S ####[facility] LABCLIA [id number] [place] [address] [place] CLINICAL HISTORY Normal [facility] Comment on above: Order Comment: Speci gil Type: TISSUE SPECIMENOrdering Facility: [facility] Address: [address] [place] [address] Result Comment: Pre- op diagnosis: Primary osteoarthritis of first carpometacarpal joint of right hand [M18.11] Performed By: #### S ####[facility] LABCLIA [id number] [address] FINAL DIAGNOSIS [facility] Comment on above: Order Comment: Speci men Type: TISSUE SPECIMENOrdering Facility: [facility] Address: [address] [place] [address] Result Comment: Soft tissue, right thumb synovium, excision: - Benign, noninflamed tenosynovium. - A Congo red stain is negative for amyloid deposits. Performed By: #### S ####[facility] LABIA [id number] [address] FINAL PERFORMING LAB [facility] Comment on above: Order Comment: Speci men Type: TISSUE SPECIMENOrdering Facility: [facility] Address: [address] [place] [address] Result Comment: Diag nostic interpretation performed at [facility], [address] [place] [address] CLIA# [id number] Surgeon Assistant: Joey Yeager M.D. Performed By: #### S ####[facility] LABIA [id number] [address] OF [facility] DESCRIPTION A. SYNOVIUM [facility] Comment on above: Order Comment: Speci [facility] Type: TISSUE SPECIMENOrdering Facility: [facility] Address: [address] [place] [address] Result Comment: Rece ived in formalin labeled "right thumb synovium" is an 1.4 x 0.6 x 0.5 cm segment of carpenter, irregular membranous soft tissue. The specimen is entirely submitted intact in one cassette. Gross examination performed at [facility], [address] [place] [address] CLIA# [id number] [facility] 06/10/22 Performed By: #### S ####[facility] LABCLIA [id number] [address] [place] Small Joint Arthro/Inj: R th umb [facility] Vital Signs Date Time Vital Sign Value Performing Clinician Corey goldsmith 07-18-2024 09:52-0500 Diastolic blood pressure 90 mm[Hg] Grace Ro SAFE DEPOSIT BOX RENTAL CLERK.COMBER TENDER Work Phone: [facility] 07-18-2024 09:52-0500 Heart rate 54 /min Grace Ro SAFE DEPOSIT BOX RENTAL CLERK.COMBER TENDER Work Phone: [facility] 07-18-2024 09:52-0500 Respiratory rate 16 /min Grace Ro SAFE DEPOSIT BOX RENTAL CLERK.COMBER TENDER Work Phone: [facility] 07-18-2024 09:52-0500 SaO2% (BldA) [Mass fraction] 99 % Grace Ro SAFE DEPOSIT BOX RENTAL CLERK.COMBER TENDER Work Phone: [facility] 07-18-2024 09:52-0500 Systolic blood pressure 138 mm[Hg] Grace Ro SAFE DEPOSIT BOX RENTAL CLERK.COMBER TENDER Work Phone: [facility] 07-03-2024 11:36-0500 Body mass index (BMI) [Ratio] 26.79 kg/m2 Dior Montoya MD Work Phone: [facility] 07-03-2024 11:36-0500 Body temperature 96.21 [degF] Dior Montoya MD Work Phone: [facility] 07-03-2024 11:36-0500 Body weight 82.28 kg Dior Montoya MD Work Phone: [facility] 07-03-2024 11:36-0500 Diastolic blood pressure 72 mm[Hg] Dior Montoya MD Work Phone: [facility] 07-03-2024 11:36-0500 Heart rate 68 /min iDor Montoya MD Work Phone: [facility] 07-03-2024 11:36-0500 SaO2% (BldA) [Mass fraction] 99 % Dior Montoya MD Work Phone: [facility] 07-03-2024 11:36-0500 Systolic blood pressure 136 mm[Hg] Dior Montoya MD Work Phone: [facility] 03-02-2024 09:36-0400 Body height 175.3 cm Dior Montoya MD Work Phone: [facility] 03-02-2024 09:36-0400 Body mass index (BMI) [Ratio] 27.02 kg/m2 Dior Montoya MD Work Phone: [facility] 03-02-2024 09:36-0400 Body weight 83.01 kg Dior Montoya MD Work Phone: [facility] 03-02-2024 09:36-0400 Heart rate 56 /min Dior Montoya MD Work Phone: [facility] 03-02-2024 09:36-0400 Respiratory rate 19 /min Dior Montoya MD Work Phone: [facility] 03-02-2024 09:36-0400 SaO2% (BldA) [Mass fraction] 98 % Dior Montoya MD Work Phone: [facility] 08-31-2023 13:11-0400 Body height 175.3 cm Dior Montoya MD Work Phone: [facility] 08-31-2023 13:11-0400 Body weight 85.82 kg Dior Montoya MD Work Phone: [facility] 08-31-2023 13:11-0400 Diastolic blood pressure 86 mm[Hg] Dior Montoya MD Work Phone: [facility] 08-31-2023 13:11-0400 Heart rate 63 /min Dior Montoya MD Work Phone: [facility] 08-31-2023 13:040 Respiratory rate 18 /min Dior Montoya MD Work Phone: [facility] 08-31-2023 13:110400 SaO2% (BldA) [Mass fraction] 97 % Dior Montoya MD Work Phone: [facility] 08-31-2023 13:040 Systolic blood pressure 128 mm[Hg] Dior Montoya MD Work Phone: [facility] 05-27-2022 14:050 Body height 177.8 cm [facility] 05-27-2022 14: Body weight 81.65 kg [facility] Encounters Encounter Date Encounter Type Care Provider Facility Start: 03-27-2025 ambulatory [facility] MEDIA ANALYST Facil ity:[facility] Start: 03-22-2025 End: 03-22-2025 Emergency department patient visit Grace Ro NP Facility:[facility] Start: 09-28-2024 End: 11-28-2024 Follow-up encounter Dior Montoya MD Work Phone: Endocrinology Start: 08-09-2024 End: 08-09-2024 ambulatory Chai Rico MD Work Phone: Family [facility] Comment on above: white count Start: 08-09-2024 End: 08-09-2024 E-mail encounter from caregiver Chai Rico MD Work Phone: [facility] [place] Start: 08-07-2024 End: 08-09-2024 Follow-up encounter Chai Rico MD Work Phone: [facility] [place] Comment on above: Leukopenia, unspecif ied type (Primary Dx) Start: 08-07-2024 End: 08-07-2024 Patient encounter procedure Nadya Alfietayla GAS OR WATER METER INSTALLER -Outpatient Breast Imaging Work Phone: Start: 08-07-2024 End: 08-07-2024 ambulatory [facility] Facility:[facility] Start: 08-07-2024 End: 08-07-2024 ambulatory Grace Ro MEDIA ANALYST Facility:[facility] Start: 07-18-2024 End: 07-18-2024 [facility] Start: 07-18-2024 End: 07-18-2024 Patient encounter procedure Grace Ro SAFE DEPOSIT BOX RENTAL CLERK.COMBER TENDER Work Phone: [facility] Comment on above: Welcome to Medicare preventive visit (Primary Dx); Hyperlipidemia, mixed; Screening for diabetes mellitus Start: 07-18-2024 End: 07-18-2024 Patient encounter status Grace Jia SAFE DEPOSIT BOX RENTAL CLERK.COMBER TENDER Work Phone: [facility] Work Phone: Start: 07-03-2024 End: 07-03-2024 ambulatory DIOR MONTOYA Facility:[facility] Start: 07-03-2024 End: 07-03-2024 Patient encounter procedure Dior Montoya MD Work Phone: Endocrinology Comment on above: Myriam's thyroidi tis (Primary Dx) Start: 06-22-2024 End: 06-22-2024 ambulatory DIOR MONTOYA Facility:[facility] Start: 04-12-2024 End: 04-17-2024 ambulatory Grace Ro SAFE DEPOSIT BOX RENTAL CLERK.COMBER TENDER Work Phone: Internal Medicine [place] [id number] Start: 03-02-2024 End: 03-02-2024 ambulatory DIOR MONTOYA Facility:[facility] Start: 03-02-2024 End: 03-02-2024 Patient encounter procedure Dior Montoya MD Work Phone: Endocrinology Comment on above: Myriam's thyroidi tis (Primary Dx) Start: 02-21-2024 End: 02-21-2024 Patient Msg Dior Montoya MD Work Phone: Endocrinology Comment on above: Levothyroxine Refill Start: 12-27-2023 Patient Msg Dior Montoya MD Work Phone: General Surgery Comment on above: Medication Refill Refill Request Start: 11-09-2023 Refill Dior Montoya MD Work Phone: Endocrinology Comment on above: Refill Request Start: 10-21-2023 End: 10-21-2023 ambulatory DIOR MONTOYA Facility:[facility] Start: 08-31-2023 End: 08-31-2023 ambulatory DIOR MONTOYA Facility:[facility] Start: 08-31-2023 End: 08-31-2023 Patient encounter procedure Dior Montoya MD Work Phone: Endocrinology Comment on above: Myriam's thyroidi tis (Primary Dx); Abnormal thyroid blood test Start: 07-23-2023 Telephone encounter Chai Rico MD Work Phone: Family [facility] [place] Comment on above: Results Start: 07-20-2023 Telephone encounter Grace cain APRN.CNP Work Phone: Family [facility] [place] Comment on above: Endocrinology update Start: 08-04-2022 End: 08-04-2022 ambulatory Veronica Mohamud OT/L Work Phone: [facility] Outpatient Occupational Therapy Comment on above: Thumb joint stiffnes s (Primary Dx); Primary osteoarthritis of first carpometacarpal joint of right hand Start: 07-21-2022 End: 07-21-2022 ambulatory Iman Sinha OT/L Work Phone: [facility] Outpatient Occupational Therapy Comment on above: Thumb joint stiffnes s (Primary Dx); Primary osteoarthritis of first carpometacarpal joint of right hand Start: 07-13-2022 End: 07-13-2022 Patient encounter procedure Galo Warren MD Work Phone: Orthopaedics Comment on above: Thumb pain, right (P rimary Dx) Start: 07-13-2022 End: 07-13-2022 Subsequent hospital visit by physician Rosaura [facility] [place]el Work Phone: Radiology Comment on above: Primary osteoarthrit is of first carpometacarpal joint of right hand [M18.11] Start: 07-08-2022 Orders Only Galo Warren MD Work Phone: Orthopaedics Comment on above: Primary osteoarthrit is of first carpometacarpal joint of right hand (Primary Dx) Start: 07-07-2022 End: 07-07-2022 ambulatory Mohamud OT/L Work Phone: [facility] Outpatient Occupational Therapy Comment on above: Primary osteoarthrit is of first carpometacarpal joint of right hand (Primary Dx) Start: 06-23-2022 End: 06-23-2022 ambulatory JULI TERAN Facility:[facility] Start: 06-23-2022 End: 06-23-2022 ambulatory Semaj OT/L Work Phone: [facility] Outpatient Occupational Therapy Comment on above: Primary [...] Appointment Start: 06-10-2022 End: 06-10-2022 ambulatory GRACE [facility] Facility:[facility] Start: 06-09-2022 ambulatory Galo Warren MD Work Phone: [facility] Start: 06-09-2022 Follow-up encounter Galo thomas MD Work Phone: Orthopaedics Comment on above: follow up appointmen ts to surgery and PT Start: 05-27-2022 End: 05-27-2022 Admission to establishment [facility] Start: 05-27-2022 End: 05-27-2022 ambulatory [facility] Virtual Pre Anesthesia Comment on above: Pre-op evaluation (P rimary Dx) Start: 05-27-2022 End: 05-27-2022 Preprocedural examination done Pac Virtual Pre Anesthesia Start: 04-13-2022 Telephone encounter Galo thomas MD Work Phone: Orthopaedics Comment on above: Reschedule surgery Start: 10-24-2021 Telephone encounter Grace cain APRN.COMBER TENDER Work Phone: [facility] Comment on above: Results Start: 10-14-2021 Telephone encounter Grace cain APRN.COMBER TENDER Work Phone: [facility] Comment on above: Results Start: 10-10-2021 End: 10-10-2021 Patient encounter procedure [facility]-Outpatient Breast Imaging Start: 10-08-2021 Telephone encounter Grace cain APRN.COMBER TENDER Work Phone: [facility] Comment on above: Orders Start: 09-25-2021 End: 09-25-2021 Patient encounter procedure Galo Warren MD Work Phone: Orthopaedics Comment on above: Primary osteoarthrit is of first carpometacarpal joint of right hand (Primary Dx); Thumb pain, right Start: 09-25-2021 End: 09-25-2021 Subsequent hospital visit by physician Rosaura [facility] [place] Work Phone: Radiology Comment on above: Thumb pain, right [M 79.644] Start: 09-22-2021 Orders Only Galo Warren MD Work Phone: Orthopaedics Comment on above: Thumb pain, right (P rimary Dx) Start: 09-19-2021 Telephone encounter Grace cain APRN.COMBER TENDER Work Phone: [facility] Comment on above: Results Procedures Date Procedure Procedure Detail Performing Clinician Start: 08-07-2024 Screening mammography C vania Ro MEDIA ANALYST-C Work Phone: Start: 08-07-2024 Lipid 1996 panel - S carrol or Plasma Chai Rico MD Work Phone: Start: 05-04-2023 Lipid 1996 panel - S carrol or Plasma Grace Ro SAFE DEPOSIT BOX RENTAL CLERK.COMBER TENDER Work Phone: Start: 07-13-2022 Radex hand minimum 3 views Galo Warren MD Work Phone: Start: 10-10-2021 End: 10-10-2021 Screening mammography Start: 09-25-2021 Arthrocentesis aspir &/inj small jt/bursa w/o us Galo Warren MD Work Phone: Start: 09-25-2021 Radex hand minimum 3 views Galo Warren MD Work Phone: Start: 09-17-2021 Adult depression scr eening assessment Galo Warren MD Work Phone: Start: 09-17-2021 Lipid 1995 panel - S carrol or Plasma Xr Mob Work Phone: Start: 12-10-2016 Mammography Galo thomas MD Work Phone: Plan of Treatment Date Care Activity Detail Author Start: 2034 RSV Vaccine (1 - 1-dose 75+ series) RSV Vaccine (1 - 1-dose 75+ series) [facility] Start: 08-07-2029 Lipid panel Lipid Screening [facility] Start: 05-04-2028 Lipid panel Lipid Screening [facility] Start: 08-08-2027 Diabetes Screening Diabetes Screenin g [facility] Start: 09-17-2026 Lipid 1996 panel - Serum or Plasma Lipid Screening [facility] Start: 09-17-2026 LIPID SCREEN LIPID SCREEN [facility] Start: 08-22-2026 Urine microalbumin profile DTaP,Tdap,Td Vaccine (2 - Td or Tdap) [facility] Start: 05-04-2026 Diabetes Screening Diabetes Screenin g [facility] Start: 07-18-2025 Covid-19 Vaccine () Covid-19 Vaccine () [facility] Comment on above: Postponed from 02/05 (Declined at this time) Start: 07-18-2025 Medicare Annual Wellness Visit Medicare Annual Wellness Visit [facility] Start: 07-18-2025 Pneumococcal Vaccine : 50+ (1 of 1 - PCV) Pneumococcal Vaccine: 50+ (1 of 1 - PCV) [facility] Comment on above: Postponed from 05/16 (Declined at this time) Start: 07-09-2025 End: 10-08-2025 Thyrotropin [Units/volume] in Serum or Plasma THYROID STIMULATING HORMONE Lab Routine Myriam's thyroiditis Expected: 07/09/2025, Expires: 10/08/2025 [facility] Work Phone: Comment on above: Expected: 07/09/2025 , Expires: 10/08/2025 Start: 07-09-2025 End: 10-08-2025 Thyroxine (T4) free [Mass/volume] in Serum or Plasma T4 FREE/FREE THYROXINE Lab Routine Myriam's thyroiditis Expected: 07/09/2025, Expires: 10/08/2025 [facility] Comment on above: Expected: 07/09/2025 , Expires: 10/08/2025 Start: 06-21-2025 End: 09-20-2025 Thyrotropin [Units/volume] in Serum or Plasma THYROID STIMULATING HORMONE Lab Routine Myriam's thyroiditis Expected: 06/21/2025, Expires: 09/20/2025 [facility] Work Phone: Comment on above: Expected: 06/21/2025 , Expires: 09/20/2025 Start: 06-21-2025 End: 09-20-2025 Thyroxine (T4) free [Mass/volume] in Serum or Plasma T4 FREE/FREE THYROXINE Lab Routine Myriam's thyroiditis Expected: 06/21/2025, Expires: 09/20/2025 [facility] Comment on above: Expected: 06/21/2025 , Expires: 09/20/2025 Start: 02-05-2025 Influenza vaccination Influenz a Vaccine (Season Ended) [facility] Start: 12-04-2024 Influenza vaccination Influenza Vacc ine (#1) [facility] Comment on above: Postponed from 02/05 (Declined at this time) Start: 10-15-2024 COLOGUARD (FIT-DNA) COLOGUARD (FIT-D NA) [facility] Start: 10-15-2024 COLORECTAL CANCER SCREENING COLORECTAL CANCER SCREENING [facility] Start: 10-15-2024 Screening for malignant neoplasm of colon [facility] Start: 09-17-2024 DIABETES SCREEN DIABETES SCREEN [facility] Start: 09-17-2024 Diabetes Screening Diabetes Screenin g [facility] Start: 08-08-2024 End: 11-07-2024 CBC W Ordered Manual Differential panel - Blood PATHOLOGIST INTERPRETATION WITH CBC AND DIFF Lab Routine Leukopenia, unspecified type Expected: 08/08/2024, Expires: 11/07/2024 [facility] Work Phone: Comment on above: Expected: 08/08/2024 , Expires: 11/07/2024 Start: 07-18-2024 End: 10-17-2024 CBC W Auto Differential panel - Blood COMPLETE BLOOD COUNT AND DIFFERENTIAL Lab Routine Hyperlipidemia, mixed Screening for diabetes mellitus Expected: 07/18/2024, Expires: 10/17/2024 [facility] Comment on above: Expected: 07/18/2024 , Expires: 10/17/2024 Start: 07-18-2024 End: 10-17-2024 Comprehensive metabolic 2000 panel - Serum or Plasma COMPREHENSIVE METABOLIC PANEL Lab Routine Hyperlipidemia, mixed Screening for diabetes mellitus Expected: 07/18/2024, Expires: 10/17/2024 [facility] Comment on above: Expected: 07/18/2024 , Expires: 10/17/2024 Start: 07-18-2024 End: 10-17-2024 Lipid 1996 panel - Serum or Plasma LIPID PANEL BASIC Lab Routine Hyperlipidemia, mixed Expected: 07/18/2024, Expires: 10/17/2024 [facility] Work Phone: Comment on above: Expected: 07/18/2024 , Expires: 10/17/2024 Start: 07-18-2024 End: 07-18-2024 Patient encounter procedure 07/18/2024 10:00 AM EST Office Visit [facility] [place] [address] [facility] [place] [id number] Grace Ro, SAFE DEPOSIT BOX RENTAL CLERK.COMBER TENDER [address] [facility] [place] [address] well visit- just started on Medicare [facility] [place] Comment on above: well visit- just sta rted on Medicare Start: 07-03-2024 End: 07-03-2024 Patient encounter procedure 07/03/2024 11:40 AM EST Office Visit Endocrinology [address], [place] [address] Dior Montoya MD [address] [place] [address] 4 month follow up Endocrinology Comment on above: 4 month follow up Start: 06-21-2024 End: 09-20-2024 Thyrotropin [Units/volume] in Serum or Plasma THYROID STIMULATING HORMONE Lab Routine Myriam's thyroiditis Expected: 06/21/2024, Expires: 09/20/2024 [facility] Work Phone: Comment on above: Expected: 06/21/2024 , Expires: 09/20/2024 Start: 06-21-2024 End: 09-20-2024 Thyroxine (T4) free [Mass/volume] in Serum or Plasma T4 FREE/FREE THYROXINE Lab Routine Myriam's thyroiditis Expected: 06/21/2024, Expires: 09/20/2024 [facility] Comment on above: Expected: 06/21/2024 , Expires: 09/20/2024 Start: 06-07-2024 Advance Directive Discussion Advance Directive Discussion [facility] Start: 05-04-2024 Covid-19 Vaccine (#1) Covid-19 Vacci ne (#1) [facility] Comment on above: Postponed from 11/14 (Declined at this time) Start: 05-04-2024 Covid-19 Vaccine ( season) Covid-19 Vaccine ( season) [facility] Comment on above: Postponed from 02/05 (Declined at this time) Start: 05-04-2024 RSV Vaccine (1 - 1-dose 60+ series) RSV Vaccine (1 - 1-dose 60+ series) [facility] Comment on above: Postponed from 05/16 (Declined at this time) Start: 05-04-2024 Shingrix Vaccine (1 of 2) Shingrix Vaccine (1 of 2) [facility] Comment on above: Postponed from 05/16 (Declined at this time) Start: 03-02-2024 End: 03-02-2024 Patient encounter procedure 03/02/2024 9:40 AM EDT Office Visit Endocrinology [address] [place] [id number] Dior Montoya MD [address] [place] [id number] Return in about 6 months (around 03/02/2024) for Hypothyroidism. Endocrinology Comment on above: Return in about 6 mo nths (around 03/02/2024) for Hypothyroidism. Start: 02-06-2024 Covid-19 Vaccine ( season) Covid-19 Vaccine ( season) [facility] Start: 02-06-2024 Covid-19 Vaccine ( season) Covid-19 Vaccine () [facility] Start: 02-06-2024 Influenza vaccination C [facility] Start: 12-05-2023 Influenza vaccination Influenza Vacc ine (#1) [facility] Comment on above: Postponed from 02/05 (Declined at this time) Start: 10-20-2023 End: 01-19-2024 Thyrotropin [Units/volume] in Serum or Plasma TSH BLD Lab Routine Myriam's thyroiditis Expected: 10/20/2023, Expires: 01/19/2024 [facility] Work Phone: Comment on above: Expected: 10/20/2023 , Expires: 01/19/2024 Start: 10-20-2023 End: 01-19-2024 Thyroxine (T4) free [Mass/volume] in Serum or Plasma T4 FREE/FREE THYROX Lab Routine Myriam's thyroiditis Expected: 10/20/2023, Expires: 01/19/2024 [facility] Work Phone: Comment on above: Expected: 10/20/2023 , Expires: 01/19/2024 Start: 02-05-2023 Influenza vaccination Influenza Vacc ine (#1) [facility] Start: 10-10-2022 Mammography [facility] Start: 10-10-2022 Screening for malignant neoplasm of breast Mammogram Screening [facility] Start: 09-17-2022 Adult depression screening assessment DEPRESSION SCREENING [facility] Start: 09-17-2022 COVID-19 VACCINE (#1) COVID-19 VACCI NE (#1) [facility] Comment on above: Postponed from 05/16 (Declined at this time) Postponed from 11/14 (Declined at this time) Start: 09-17-2022 COVID-19 VACCINE (1) COVID-19 VACCIN E (1) [facility] Comment on above: Postponed from 05/16 (Declined at this time) Start: 06-07-2022 [facility] Start: 02-05-2022 Influenza vaccination [facility] Start: 06-07-2021 DEPRESSION ASSESSMENT [facility] Start: 2019 RSV Vaccine (1 - 1-dose 60+ series) RSV Vaccine (1 - 1-dose 60+ series) [facility] Start: 12-10-2017 Mammography MAMMOGRAM [facility] Start: 2009 Pneumococcal Vaccine : 50+ (1 of 1 - PCV) Pneumococcal Vaccine: 50+ (1 of 1 - PCV) [facility] Start: 2009 SHINGRIX VACCINE (1 of 2) SHINGRIX VACCINE (1 of 2) [facility] Start: 2004 COLOGUARD (FIT-DNA) COLOGUARD (FIT-D NA) [facility] Start: 2004 Colonoscopy COLONOSCOPY [facility] Start: 2004 COLORECTAL CANCER SCREENING COLORECTAL CANCER SCREENING [facility] Start: [address] COLONOGRAPHY [facility] Start: 2004 FECAL OCCULT BLOOD FECAL OCCULT BLOO D [facility] Start: 2004 Screening for malignant neoplasm of colon [facility] Start: 2004 SIGMOIDOSCOPY SIGMOIDOSCOPY [facility] Start: 1989 HPV TESTING HPV TESTING [facility] Start: 1989 Screening for malignant neoplasm of cervix HPV Testing [facility] Start: 1980 PAP TESTING PAP TESTING [facility] Start: 1980 Screening for malignant neoplasm of cervix [facility] Start: 1978 Urine microalbumin profile DTAP,TDAP,TD (1 - Tdap) [facility] Start: 1977 Anxiety Screening Anxiety Screening [facility] Start: 1977 Depression Screening Depression Scre ening [facility] Start: 1959 Covid-19 Vaccine (#1) Covid-19 Vacci ne (#1) [facility] End: 05-12-2025 DBT Breast - bilateral screening JUDITH SCREENING [facility] Radiology Routine Encounter for screening mammogram for breast cancer 1 Occurrences starting 04/12/2024 until 05/12/2025 [facility] Work Phone: Comment on above: 1 Occurrences starti ng 04/12/2024 until 05/12/2025 End: 11-07-2022 JUDITH SCREENING W LU[facility] FERNANDO JUDITH SCREENING [facility] Radiology Routine Visit for screening mammogram 1 Occurrences starting 10/08/2021 until 11/07/2022 [facility] Work Phone: Comment on above: 1 Occurrences starti ng 10/08/2021 until 11/07/2022 End: 10-22-2022 XR HAND GENERAL 3V PA/LAT/OBL RIGHT XR HAND GENERAL 3V PA/LAT/OBL RIGHT Radiology Routine Thumb pain, right 1 Occurrences starting 09/22/2021 until 10/22/2022 [facility] Work Phone: Comment on above: 1 Occurrences starti ng 09/22/2021 until 10/22/2022 XR HAND GENERAL 3V PA/LAT/OBL RIGHT XR HAND GENERAL 3V PA/LAT/OBL RIGHT Radiology Routine Thumb pain, right 09/25/2021 10:18 AM EDT [facility] Work Phone: End: 08-07-2023 XR HAND GENERAL 3V PA/LAT/OBL RIGHT XR HAND GENERAL 3V PA/LAT/OBL RIGHT Radiology Routine Primary osteoarthritis of first carpometacarpal joint of right hand 1 Occurrences starting 07/08/2022 until 08/07/2023 [facility] Work Phone: Comment on above: 1 Occurrences starti ng 07/08/2022 until 08/07/2023 [facility] Immunizations Immunization Date Immunization Notes Care Provider Claudia castro 02-24-2020 influenza virus vaccine, unspecified formulation [employer] Work Phone: [facility] 08-22-2016 tetanus toxoid, redu clarita diphtheria toxoid, and acellular pertussis vaccine, adsorbed [facility] Payers Date Payer Category Payer Self-pay [id number] 2024 Private Health Insurance [facility] [id number] 2024 Unknown [id number] 2024 Medicare [id number] 2024 Medicare [id number] 2021 Unknown [employer] PPO [id number] 2021-Present [phone] [address] [place] [address] PPO [id number] 2021 Unknown [id number] 2020 Unknown [id number] Unknown [id number] Unknown SELF PAY INSURANCE [id number] Unknown [id number] Unknown [id number] Unknown [id number] Social History Date Type Detail Facility Start: 09-17-2021 End: 05-27-2022 Tobacco smoking status NHIS Never smoked tobacco [facility] Start: 09-17-2021 End: 05-27-2022 Tobacco use and exposure Smokeless tobacco non-user [facility] Start: 09-17-2021 History SDOH Alcohol Comment occasional glass of wine [facility] Start: 1960 Sex Assigned At Not on file C [facility] Start: 09-15-2021 End: 04-09-2022 Exposure to SARS-CoV-2 (event) Not sure [facility] Start: 12-28-2020 Tobacco smoking stat us NDIS Unknown if ever smoked [facility] Work Phone: Start: 1960 Sex Assigned At Female [facility] Start: 07-13-2022 End: 05-04-2023 History of Social function [facility] Work Phone: Start: 07-13-2022 End: 05-04-2023 Tobacco use panel [facility] Work Phone: Adult Depression Screening Assessment 0 [facility] Work Phone: Start: 08-31-2023 End: 07-18-2024 Alcohol intake Current drinker of alcohol (finding) [facility] Has the [employer], or water [employer] threatened to shut off services in your home in past 12Mo No [facility] Do you belong to any clubs or organizations such as mu-ism groups, unions, fraternal or athletic groups, or school groups? Yes [facility] Are you now , , , , never or living with a partner? [facility] How often to you hav e a drink containing alcohol? 2-4 times a month [facility] How many standard dr inks containing alcohol do you have on a typical day? 1 or 2 [facility] How often do you hav e 6 or more drinks on 1 occasion? Never [facility] Do you feel stress - tense, restless, nervous, or anxious, or unable to sleep at night because your mind is troubled all the time - these days [OSQ] Not at all [facility] (I/We) worried wheth er (my/our) food would run out before (I/we) got money to buy more. Never true [facility] Start: 08-18-2024 Sex Female (finding) [facility] Clinical Notes 09-22-2021 to 07-18-2024 Ever Small LPN - 07/18/2024 11:03 AM Grace Holley APRN.MADELINE - 07/18/2024 10:12 AM ESTPatient InstructionsPatient InstructionsDior Montoya MD - 07/03/2024 11:41 AM EST Note Date & Type Note Facility 07-18-2024 Note HNO ID: [id number] Author: EVER SMALL LPN Service: ? Author Type: LICENSED NURSE Type: Progress Notes Filed: 07/18/2024 16:47 Note Text: Vision Exam /c correction: R eye 20/20 L eye 20/20 [facility] 07-18-2024 History of Presen t [...] MUSCULOSKELETAL: left knee, right hip, left thumb "acts up." SKIN: followed w/ dermatology. Areas are fading. [...] prevention plan provided documented in this encounter [facility] 07-18-2024 Note HNO ID: [id number] Author: GRACE RO APRN.COMBER TENDER Service: ? Author Type: Nurse Practitioner Type: [...] MUSCULOSKELETAL: left knee, right hip, left thumb "acts up." SKIN: followed w/ dermatology. Areas are fading. [...] information provided - Personalized prevention plan provided [facility] 07-18-2024 Instructions Grace Ro APRN.COMBER TENDER - 07/18/2024 10:12 AM EST We can fax order over to mammogram. Get fasting labwork. Recheck in 1 year. Screening schedule The following prevention plan is recommended: Depression Screening Never done Anxiety Screening Never done Shingrix Vaccine(1 of 2) Never done Pneumococcal Vaccine: 50+(1 of 1 - PCV) Never done Mammogram Screening due on 10/10/2022 Influenza Vaccine(1) due on 02/06/2024 Covid-19 Vaccine( - 2023- season) Never done Advance Directive Discussion Never [...] review all the medicines you take, even [id number] medicines. As you get older, the way [...] certain medical conditions. documented in this encounter [facility] 07-03-2024 Instructions Dior Montoya MD - 07/03/2024 11:45 AM EST Please continue the same dose of levothyroxine Labs in 1 year and follow up documented in this encounter [facility] 07-03-2024 Note HNO ID: [id number] Author: DIOR MONTOYA MD Service: ? Author [...] visit on 08/31/2023 She was seen by catalogue librarian for non-itching lesions on skin (looks like scalds), for the last year, and antibodies were checked "for diagnoses of Hyannis's syndrome", which revealed high titers of TPO Thyroid [...] Reactions Cortisone Hives States it turns her "legs purple". Influenza Virus Vac* Hives States it turns her "legs purple" MEDICATIONS: Current Outpatient Medications on File Prior [...] Moderate Dior Montoya MD Endocrinology Associate Staff [facility] Endocrinology and Metabolism [place] [phone] [facility] 07-03-2024 History of Presen t illness Narrative [facility] Follow up note CONSULTED BY: Haylee Watson APRN. COMBER TENDER My final recommendations will be communicated back to the requesting provider by way of shared Medical record or a letter via [place] mail History of present illness: Deanne Sánchez is a 63 year old female here to follow up of hypothyroidism. Initial visit on 08/31/2023 She was seen by catalogue librarian for non-itching lesions on skin (looks like scalds), for the last year, and antibodies were checked "for diagnoses of Hyannis's syndrome", which revealed high titers of TPO Thyroid [...] Reactions Cortisone Hives States it turns her "legs purple". Influenza Virus Vac* Hives States it turns her "legs purple" MEDICATIONS: Current Outpatient Medications on File Prior [...] Moderate Dior Montoya MD Endocrinology Associate Staff [facility] Endocrinology and Metabolism [place] [phone] documented in this encounter [facility] 04-12-2024 Note Patient Outreach (IN TMMN) DEANNE SÁNCHEZ ([id number]) 1960 F Date Time Provider Department 04/12/24 GRACE RO During your visit today, we recorded the following information about you: Allergies As of Date: 04/12/2024 Noted Allergy Reaction CORTISONE 09/25/2021 4 - Hives Comments: States it turns her "legs purple". INFLUENZA VIRUS VACCINES 09/25/2021 4 - Hives Comments: States it turns her legs purple Date Reviewed: 03/02/2024 Reviewed by: Elodia Ugalde RN - Fully Assessed Visit Diagnosis:Encounter for screening mammogram for breast cancer [Z12.31] Order(s):JUDITH SCREENING W LUIS FERNANDO [[id number]] Order #: [id number] FUTURE Prescriptions as of 04/17/2024 - levothyroxine [...] multiple sites [M85.89] 06/14/2023 Encounter Status:Closed by [employer] on 04/17/24 [facility] 03-02-2024 Instructions Dior Montoya MD - 03/02/2024 10:04 AM EDT Please continue the same dose of levothyroxine and repeat labs in Jun 2024, and follow up after documented in this encounter [facility] 03-02-2024 Note HNO ID: [id number] Author: DIOR MONTOYA MD Service: ? Author Type: Physician Type: Progress Notes Filed: 03/02/2024 12:54 Note Text: [facility] Follow up note CONSULTED BY: Haylee Watson APRN. MADELINE My final recommendations will be communicated back to the requesting provider by way of shared Medical record or a letter via [place] mail History of present illness: Deanne Sánchez is a 63 year old female here to establish care for hypothyroidism. She was seen by catalogue librarian for non-itching lesions on skin (looks like scalds), for the last year, and antibodies were checked "for diagnoses of Cali's syndrome", which revealed high titers of TPO Thyroid [...] Reactions Cortisone Hives States it turns her "legs purple". Influenza Virus Vac* Hives States it turns her "legs purple" MEDICATIONS: Current Outpatient Medications on File Prior [...] Granuloma annulare 2023 Diagn[facility] PAST SURGICAL HISTORY: PAST SURGICAL HISTORY [...] 56 Resp 19 Ht 175.3 cm (5' 9") Wt 83 kg (183 lb) SpO2 98% [...] Moderate Dior Montoya MD Endocrinology Associate Staff [facility] Endocrinology and Metabolism [place] [phone] [facility] 03-02-2024 History of Presen t illness Narrative [facility] Follow up note CONSULTED BY: Haylee Watson APRN. COMBER TENDER My final recommendations will be communicated back to the requesting provider by way of shared Medical record or a letter via [place] mail History of present illness: Deanne Sánchez is a 63 year old female here to establish care for hypothyroidism. She was seen by catalogue librarian for non-itching lesions on skin (looks like scalds), for the last year, and antibodies were checked "for diagnoses of Cali's syndrome", which revealed high titers of TPO Thyroid [...] Reactions Cortisone Hives States it turns her "legs purple". Influenza Virus Vac* Hives States it turns her "legs purple" MEDICATIONS: Current Outpatient Medications on File Prior [...] [facility]are [facility]23 [facility] PAST SURGICAL HISTORY: PAST SURGICAL HISTORY Procedure [...] 56 Resp 19 Ht 175.3 cm (5' 9") Wt 83 kg (183 lb) SpO2 98% [...] Moderate Dior Montoya MD Endocrinology Associate Staff [facility] Endocrinology and Metabolism [place] [phone] documented in this encounter [facility] 08-31-2023 Instructions Dior Montoya MD - [...] prilosec or protonix documented in this encounter [facility] 08-31-2023 Note HNO ID: [id number] Author: DIOR MONTOYA MD Service: ? Author Type: Physician Type: Progress Notes Filed: 08/31/2023 19:48 Note Text: [facility] Initial Clinic Visit Note CONSULTED BY: Haylee Watson APRN. COMBER TENDER My final recommendations will be communicated back to the requesting provider by way of shared Medical record or a letter via [place] mail Subjective: Deanne Sánchez is a 63 year old female here to establish care for hypothyroidism. She was seen by catalogue librarian for non-itching lesions on skin (looks like scalds), for the last year, and antibodies were checked "for diagnoses of Hyannis's syndrome", which revealed high titers of TPO General symptoms: Fatigue: for the last 2 years Weight change: gained about 20 lbs in 2 years Appetite change: always hungry Menstrual irregularities: menopause Change in bowel habits: constipation but now better for the last month Temperature intolerance: "always cold" Dry skin, dry eyes, thinning hair for one year- steroid cream did not work Nails breaking - for the last one year Family history: hypothyroidism in mother, one maternal cousin has hypothyroidism REVIEW OF SYSTEMS: As per HPI ALLERGIES: ALLERGIES Allergen Reactions Cortisone Hives States it turns her "legs purple". Influenza Virus Vac* Hives States it turns her "legs purple" MEDICATIONS: Current Outpatient Medications on File Prior [...] Granuloma annulare 2023 [facility] PAST SURGICAL HISTORY: PAST SURGICAL HISTORY [...] 62 Resp 18 Ht 175.3 cm (5' 9") Wt 85.8 kg (189 lb 3.2 oz) [...] prognosis Data: Unique (more content not included)... [facility] 08-31-2023 History of Presen t illness Narrative [facility] Initial Clinic Visit Note CONSULTED BY: Haylee Watson APRN. COMBER TENDER My final recommendations will be communicated back to the requesting provider by way of shared Medical record or a letter via [place] mail Subjective: Deanne Sánchez is a 63 year old female here to establish care for hypothyroidism. She was seen by catalogue librarian for non-itching lesions on skin (looks like scalds), for the last year, and antibodies were checked "for diagnoses of Hyannis's syndrome", which revealed high titers of TPO General symptoms: Fatigue: for the last 2 years Weight change: gained about 20 lbs in 2 years Appetite change: always hungry Menstrual irregularities: menopause Change in bowel habits: constipation but now better for the last month Temperature intolerance: "always cold" Dry skin, dry eyes, thinning hair for one year- steroid cream did not work Nails breaking - for the last one year Family history: hypothyroidism in mother, one maternal cousin has hypothyroidism REVIEW OF SYSTEMS: As per HPI ALLERGIES: ALLERGIES Allergen Reactions Cortisone Hives States it turns her "legs purple". Influenza Virus Vac* Hives States it turns her "legs purple" MEDICATIONS: Current Outpatient Medications on File Prior [...] 62 Resp 18 Ht 175.3 cm (5' 9") Wt 85.8 kg (189 lb 3.2 oz) [...] Moderate Dior Montoya MD Endocrinology Associate Staff [facility] Endocrinology and Metabolism [place] [phone] documented in this encounter [facility] 07-23-2023 Miscellaneous Notes Labs faxed to Dr Ahmadi Grace had ordered. It looks like Dr Cai office wanted these. Fax to them. Let her know it looks borderline. We usually do not treat at this point but will send them over. documented in this encounter [facility] 07-20-2023 Miscellaneous Notes Noted. Grace Ro APRN.MADELINE' Shaina from, [facility] calling received referral and Dr Ahmadi would see her if thyroid labs were placed for patient to get done. Aware orders are in computer for patient to complete. She is calling patient to remind her to get thyroid labs done soon. No appt scheduled with Dr Ahmadi as yet. documented in this encounter [facility] 08-04-2022 Note HNO ID: [id number] Author: Veronica Mohamud OT/L Service: ? Author Type: Occupational Therapist Type: Progress Notes Filed: 02/12/2023 10:59 AM Note Text: 02/12/2023 REHABILITATION AND SPORTS THERAPY OCCUPATIONAL THERAPY DISCONTINUANCE OF CARE Plan of Care Period: Start of Care Date: 06/23/22 Last Visit Date: 08/04/2022 Therapy Program: The following is a summary of the interventions provided for this episode of care; Therapeutic exercise and Self-long term management Assessment: Based on most recent visit, patient was progressing as expected toward functional goals based on documented subjective information on progress. Unable to formally assess goal achievement due to non-compliance with therapy plan of care. Reason for Discontinuation of Care: Patient has not returned to therapy or scheduled additional follow-up appointments. SCOTT Cisneros Episode Visit Count: 4 Therapist That Will [...] MEASURES WITH LEVEL OF FUNCTION: Hand Strength: Clip Loading Machine Feeder Position 2, Pinch Meter Hand Strength R Clip Loading Machine Feeder Position 2 (lbs): 36 lbs L Clip Loading Machine Feeder Position 2 (lbs): 64 lbs R Lateral [...] scar massage 4: with medium red putty log handler digit extension abduction push, thumb flex ext and tripod pinch Skilled Intervention: Patient was educated in proper exercise technique and purpose for exercises. Skilled judgment was provided in selection of appropriate interventions. Billing Therapeutic Exercise Treatment Minutes: 35 Miller, OT/L [facility] 08-04-2022 History of Presen t illness Narrative [...] MEASURES WITH LEVEL OF FUNCTION: Hand Strength: Clip Loading Machine Feeder Position 2, Pinch Meter Hand Strength R Clip Loading Machine Feeder Position 2 (lbs): 36 lbs L Clip Loading Machine Feeder Position 2 (lbs): 64 lbs R Lateral [...] scar massage 4: with medium red putty log handler digit extension abduction push, thumb flex ext and tripod pinch Skilled Intervention: Patient was educated in proper exercise technique and purpose for exercises. Skilled judgment was provided in selection of appropriate interventions. Billing Therapeutic Exercise Treatment Minutes: 35 SCOTT Cisneros documented in this encounter [facility] 07-21-2022 Note HNO ID: [id number] Author: SCOTT Ruiz Service: ? Author Type: [...] Total Treatment Time Minutes (timed/untimed): 40 Iman Sinha, OT/L [facility] 07-21-2022 History of Presen t illness Narrative [...] Treatment Time Minutes (timed/untimed): 40 Iman Sinha OT/Sylvia documented in this encounter [facility] 07-13-2022 History of Presen t illness Narrative Galo Warren MD Department of Orthopaedics Orthopaedics [address] [facility] [address] Dept: [phone] Dept July 13, 2022 CHIEF COMPLAINT: Post [...] Interval resection of trapezium. Stable degenerative findings. Welt Rougher: PSCB Transcribe Date/Time: Jul 16 2022 8:28A Dictated [...] Galo Warren MD documented in this encounter [facility] 01-31-2023 Note HNO ID: [id number] Author: Veronica Mohamud OT/L Service: ? Author Type: Occupational Therapist Type: Progress Notes Filed: 07/07/2022 4:38 PM Note Text: Episode Visit Count: 2 Therapist That Will Accept/Oversee The Plan Of Care: Mohamud Start of Care Date: 06/23/22 Onset Date: [...] and thumb all planes 6: soft sponge log handler manipulate and filler picker 7: sponge pieces filler picker Skilled Intervention: Patient was educated in proper exercise technique and purpose for exercises. Skilled judgment was provided in selection of appropriate interventions. Billing Therapeutic Exercise Treatment Minutes: 40 Total Treatment Time Minutes (timed/untimed): 50 Veronica Mohamud OT/L [facility] 07-07-2022 History of Presen t illness Narrative Episode Visit Count: 2 Therapist That Will Accept/Oversee The Plan Of Care: Semaj Davida Start of Care Date: 06/23/22 Onset Date: [...] and thumb all planes 6: soft sponge log handler manipulate and filler picker 7: sponge pieces filler picker Skilled Intervention: Patient was educated in proper exercise technique and purpose for exercises. Skilled judgment was provided in selection of appropriate interventions. Billing Therapeutic Exercise Treatment Minutes: 40 Total Treatment Time Minutes (timed/untimed): 50 SCOTT Cisneros documented in this encounter [facility] 06-23-2022 Note HNO ID: [id number] Author: SCOTT Cisneros Service: ? Author Type: Occupational Therapist Type: Progress Notes Filed: 06/23/2022 5:44 PM Note Text: Episode Visit Count: 1 Therapist That Will Accept/Oversee The Plan Of Care: Semaj Martin Start of Care Date: 06/23/22 Onset Date: 06/10/22 Patient Identified by Name and Date of : Yes [facility] OCCUPATIONAL THERAPY EVALUATION [...] Interventions: Custom orthosis fabrication;Prefabricated orthosis fitting;Therapeutic exercise (57574);Self-long term management (94476) PLAN FOR NEXT VISIT: formal thumb motion [...] with falls interview Relevant History Preferred Language: Maori Right or Left Handed: Right 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 [facility] 06-23-2022 History of Presen t illness Narrative Episode Visit Count: 1 Therapist That Will Accept/Oversee The Plan Of Care: Semaj Start of Care Date: 06/23/22 Onset Date: 06/10/22 Patient Identified by Name and Date of : Yes [facility] OCCUPATIONAL THERAPY EVALUATION PLAN OF CARE: Assessment: Denane Sánchez presents with diagnosis of post CMC [...] Interventions: Custom orthosis fabrication;Prefabricated orthosis fitting;Therapeutic exercise (28418);Self-long term management (07067) PLAN FOR NEXT VISIT: formal thumb motion [...] with falls interview Relevant History Preferred Language: Maori Right or Left Handed: Right 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 Skilled judgment was provided in selection of appropriate interventions. Self-Longterm Management: 1: educated in surgery and healing [...] in care of orthosis and wearing schedule maritime guard except when exercising / bathing. . Skilled [...] Treatment Time Minutes (timed/untimed): 45 Veronica Mohamud OT/L documented in this encounter [facility] 06-23-2022 History of Presen t illness Narrative Galo Warren MD Department of Orthopaedics Orthopaedics [address] [address] Dept: [phone] June 23, 2022 CHIEF COMPLAINT: Established Patient [...] Galo Warren MD documented in this encounter [facility] 06-12-2022 Miscellaneous Notes See telephone encounter. I spoke with patient. documented in this encounter [facility] 06-12-2022 Miscellaneous Notes I called and spoke with patient. Explained that she needs to have OT and there is no OT in [place]. Appointment is scheduled at [facility] with OT to follow because they make a splint for patient. Patient verbalized understanding and will keep appointment as scheduled. Patient called requesting to move some of her appointments from [facility] to [place]. Unable to find times through Q. Please advise. documented in this encounter [facility] 06-10-2022 Note HNO ID: [id number] Author: Freda Hernandez MD Service: Anesthesiology Author [...] June 10, 2022 TIME: 9:54 AM CSN: [id number] [facility] 05-27-2022 Instructions Haylee León APRN.COMBER TENDER - 05/27/2022 2:32 PM EST PATIENT PREOPERATIVE INSTRUCTIONS Galo Warren MD has scheduled you for your procedure at this surgery center: [facility]: [phone] -- [address] [facility] [address]. Please read below carefully for your personalized [...] Procedures: - YOU MUST HAVE A RESPONSIBLE PANTS PRESSER AUTOMATIC TAKE YOU HOME. A CREDIT REFERENCE CLERK OR STRAIGHT RULING MACHINE OPERATOR CANNOT BE MADE A RESPONSIBLE PANTS PRESSER AUTOMATIC. - We recommend that a responsible person [...] Advance Directive, please fax a copy to [phone] or email to for it to be [...] your chart that day. Haylee León APRN.CNP [phone] documented in this encounter [facility] 05-27-2022 History and physical note PREANESTHESIA CONSULT CLINIC TELEHEALTH VISIT Patient has been identified by name and date of : Yes This is a virtual visit using Pcsso video visit. It require patient-provider interaction for [...] Reactions Cortisone Hives States it turns her "legs purple". Influenza Virus Vac* Hives States it turns her "legs purple" MEDICATIONS: Current Outpatient Medications Medication Sig MULTIVITAMIN [...] fevers. Neuro: No history of TIA's, stroke, GAS OR WATER METER INSTALLER tumor, impaired sensorium, hemiplegia, paraplegia or quadraplegia. No neurological symptoms or problems. Respiratory: No history of current cough or dyspnea, or pneumonia in the past 6 weeks. No history of respiratory/pulmonary symptoms or problems. Cardiovascular: No history of HTN requiring medication, no history of angina, CHF, VT, cardiac surgery or stents. Denies rest pain, gangrene or revascularization/amputation for PVD. No history of cardiovascular symptoms or problems. GI: No history of GI symptoms or problems. No history of esophageal varices, recent ascites, or ETOH greater than 2 drinks per day. : No history of dysuria, frequency or incontinence,, stones or chronic kidney disease DRY PAN CHARGER: Negative for abnormal vaginal bleeding, abnormal vaginal [...] and itching. Objective PHYSICAL EXAM: Ht 5' 10" (1.78m) Wt 180 lb (81.6kg) BMI 25.83 [...] Abs Lymph 1.00 - 4.00 k/uL 1.51 [place]% % 9.6 Abs [place] <0.87 k/uL 0.37 Eosin% % 3.4 Abs [...] intubation Significant Anesthesia Considerations: reports that it "takes a lot to numb me" for dental procedures and she "wakes up hard and fast" Airway Exam: General: Normal appearance Mallampati Score [...] PM PAGER/CONTACT #: documented in this encounter [facility] 04-13-2022 Miscellaneous Notes Surgery has been rescheduled as requested. Patient calling and states she is scheduled for surgery on 05/01/22 and would like to reschedule to 06/10/22 due to her needs hernia surgery as well after the first of the year. They have a high deductible and wants to wait to have hers done next year also. Case message sent to [facility] schedulers. Post op appointments rescheduled and mailed to patient. documented in this encounter [facility] 10-24-2021 Miscellaneous Notes Letter sent to pt with normal results. Ever Small LPN Patient telephoned. Message left to call back for update. Kriss Bautista LPN ----- Message from Grace Ro APRN.MADELINE sent at 10/24/2021 1:17 PM EDT ----- Can please let patient know that cologuard was negative/normal. This should be repeated in three years. Grace Ro APRN.CNP documented in this encounter [facility] 10-15-2021 Miscellaneous Notes TC to pt, left detailed message on secure [facility] voicemail. Pt only to return calls with questions or concerns. Ever Small LPN Can please let patient know that I received her mammogram results.There are no concerning or worrisome findings. Please continue annual screening mammograms. Grace Ro APRN.MADELINE Received results of routine mammogram via faxed. Placed in provider office for further review. HM updated. Ever Small LPN documented in this encounter [facility] 10-08-2021 Miscellaneous Notes Order has been faxed as requested. Germaine Pierson LPN Order placed. Please fax as requested. Grace Ro APRN.MADELINE [facility] imaging calling, states that need a Bilateral Screening mammogram 3D or with Luis Fernando. Asking that order be faxed to [phone]. Patient has appt tomorrow. Please advise. documented in this encounter [facility] 09-25-2021 History of Presen t illness Narrative PT ASSESSMENT - CASTING ROOM Deanne presents for Application of brace. Applied Small Actimove Rhizo Forte to Right hand. Patient has been instructed in Care and proper application of brace. Dominique Cabello Ma Associated Order(s): Small Joint Arthro/Inj: R thumb CMC Galo Warren MD Department of Orthopaedics Orthopaedics [address] [facility] [address] Dept: [phone] Dept September 25, 2021 Consultation requested by [...] thumb CMC Informed Consent Consent Obtained: Verbal [place] Protocol A moment to CARE was completed. [...] mail or electronic medical record. Grace Ro [address] [facility] [address] No primary care provider on file. No primary provider on file. Galo Warren MD documented in this encounter [facility] 09-25-2021 History of Presen t illness Narrative Radiology Service Progress Note PATIENT NAME: Deanne Sánchez DATE OF SERVICE: September 25, 2021 TIME: [...] 2021 10:10 AM documented in this encounter [facility] 09-22-2021 Miscellaneous Notes Noted. Grace Ro [...] Grace Ro APRN.CNP documented in this encounter [facility] Evaluation note Diagnosis Thumb pain, right- Primary [facility] Diagnosis Thumb pain, right [facility] Diagnosis Visit for screening mammogram- Primary Other screening mammogram [facility] Diagnosis Primary osteoarthritis of first carpometacarpal joint of right hand- Primary Primary localized osteoarthrosis, hand Thumb pain, right [facility] noteNo assessment information availableWOhio Valley Hospital Work Phone: Evaluation note* Diagnosis Pre-op evaluation- Primary Preoperative examination, unspecified Primary osteoarthritis of first carpometacarpal joint of right hand Primary localized osteoarthrosis, hand [facility]* Diagnosis Primary osteoarthritis of first carpometacarpal joint of right hand Primary localized osteoarthrosis, hand [facility] Diagnosis Primary osteoarthritis of first carpometacarpal joint of right hand- Primary Primary localized osteoarthrosis, hand [facility]* Diagnosis Primary osteoarthritis of first carpometacarpal joint of right hand- Primary Primary localized osteoarthrosis, hand [facility]* Diagnosis Primary osteoarthritis of first carpometacarpal joint of right hand- Primary Primary localized osteoarthrosis, hand [facility]* Diagnosis Thumb joint stiffness- Primary Primary osteoarthritis of first carpometacarpal joint of right hand Primary localized osteoarthrosis, hand [facility] Diagnosis Thumb joint stiffness- Primary Primary osteoarthritis of first carpometacarpal joint of right hand Primary localized osteoarthrosis, hand [facility]* Diagnosis Thumb pain, right- Primary [facility]* Diagnosis Primary osteoarthritis of first carpometacarpal joint of right hand Primary localized osteoarthrosis, hand [facility]* Diagnosis Myriam's thyroiditis- Primary Chronic lymphocytic thyroiditis Abnormal thyroid blood test Nonspecific abnormal results of thyroid function study [facility]* Diagnosis Myriam's thyroiditis Chronic lymphocytic thyroiditis documented in this encounter [facility] note* Diagnosis Myriam's thyroiditis- Primary Chronic lymphocytic thyroiditis documented in this encounter [facility] note* Diagnosis Encounter for screening mammogram for breast cancer documented in this encounter [facility] note* Diagnosis Myriam's thyroiditis- Primary Chronic lymphocytic thyroiditis documented in this encounter [facility] note* Diagnosis Welcome to Medicare preventive visit- Primary Routine general medical examination at a health care facility Hyperlipidemia, mixed Mixed hyperlipidemia Screening for diabetes mellitus documented in this encounter [facility] note* Diagnosis Leukopenia, unspecified type- Primary documented in this encounter [facility] note* Diagnosis Myriam's thyroiditis- Primary Chronic lymphocytic thyroiditis documented in this encounter [facility] for referral (narrative)* Diagnostic Procedure Only (Routine) - Pending Review Specialty Diagnoses / Procedures Referred By Naresh garza Referred To Contact XR IMAGING Diagnoses Thumb pain, right Procedures XR HAND GENERAL 3V PA/LAT/OBL RIGHT RADEX HAND MINIMUM 3 VIEWS Galo Warren MD [address] [place] [address] Xr Imaging Referral ID Status Reason Start Date Expiration Date Visits Requested Visits Authorized [id number] Pending Review Auto-Generat ed Referral 09/22/2021 10/22/2022 1 1 [facility] for referral (narrative)* Diagnostic Procedure Only (Routine) - Closed Specialty Diagnoses / Procedures Referred By Naresh garza Referred To Contact XR IMAGING Diagnoses Thumb pain, right Procedures XR HAND GENERAL 3V PA/LAT/OBL RIGHT RADEX HAND MINIMUM 3 VIEWS Galo Warren MD [address] [place] [address] Xr Imaging Referral ID Status Reason Start Date Expiration Date V isits Requested Visits Authorized [id number] Closed Auto-Generate d Referral 09/22/2021 10/22/2022 1 1 [facility] for referral (narrative)* Diagnostic Procedure Only (Routine) - Pending Review Specialty Diagnoses / Procedures Referred By Naresh garza Referred To Contact BR IMAGING Diagnoses Visit for screening mammogram Procedures JUDITH SCREENING W LUIS FERNANDO SCREENING DIGITAL BREAST TOMOSYNTHESIS BI SCREENING MAMMOGRAPHY BI 2-VIEW BREAST INC CAD Grace Ro APRN.COMBER TENDER [address] [place] [address] [facility] [address] [place] [address] Referral ID Status Reason Start Date Expiration Date Visits Requested Visits Authorized [id number] Pending Review Auto-Generat ed Referral 10/08/2021 11/07/2022 1 1 [facility] for referral (narrative)* Diagnostic Procedure Only (Routine) - Pending Review Specialty Diagnoses / Procedures Referred By Naresh garza Referred To Contact XR IMAGING Diagnoses Primary osteoarthritis of first carpometacarpal joint of right hand Procedures XR HAND GENERAL 3V PA/LAT/OBL RIGHT RADEX HAND MINIMUM 3 VIEWS Galo Warren MD [address] [place] [id number] Xr Imaging Referral ID Status Reason Start Date Expiration Date Visits Requested Visits Authorized [id number] Pending Review Auto-Generat ed Referral 07/08/2022 08/07/2023 1 1 [facility] for referral (narrative)* Diagnostic Procedure Only (Routine) - New Request Specialty Diagnoses / Procedures Referred By Naresh garza Referred To Contact BR IMAGING Diagnoses Encounter for screening mammogram for breast cancer Procedures JUDITH SCREENING W LUIS FERNANDO SCREENING DIGITAL BREAST TOMOSYNTHESIS BI SCREENING MAMMOGRAPHY BI 2-VIEW BREAST INC Grace Srivastava APRN.COMBER TENDER [address] [place] [address] [facility] [address] [place] [address] Referral ID Status Reason Start Date Expiration Date Visits Requested Visits Authorized [id number] New Request Auto-Generat ed Referral 04/12/2024 05/12/2025 1 [facility]No reason for referral information availableWOhio Valley Hospital Work Phone: Medications Administered Section Inactive [...] August 07, 2024 9:47 am Advance Directives No Advanced Directives Records Found Advance Directive Response Recorded Date/ Time Living Will No August 22, 2016 8:44am Power of Clinical Therapist No August 22 8:44am Reason for Referral Specialty Diagnoses / Procedures Referred By Naresh t Referred To Contact [facility] Diagnoses Primary osteoarthritis of first carpometacarpal joint of right hand Procedures OT REHAB FOLLOW UP ORDER THERAPEUT ACTVITY DIRECT PT CONTACT EACH 15 [address] [place] [address] [place] [address] [facility] [address] [address] Referral ID Status Reason Start Date Expiration Date Visits Requested Visits Authorized [id number] Pending Review PCP Requested Referral Auto-Generate d Referral 06/23/2022 09/21/2022 1 1 Specialty Diagnoses / Procedures Referred By Naresh t Referred To Contact XR IMAGING Diagnoses Primary osteoarthritis of first carpometacarpal joint of right hand Procedures XR HAND GENERAL 3V PA/LAT/OBL RIGHT RADEX HAND MINIMUM 3 VIEWS Galo Warren MD [address] [place] [address] [place] [id number] Referral ID Status Reason Start Date Expiration Date V isits Requested Visits Authorized [id number] Closed Auto-Generate d Referral 07/13/2022 06/06/2023 1 [...] or prosecute any alcohol or drug abuse patient.[facility] Hospital[facility] the event this information is protected by the Federal Confidentiality of Alcohol and Drug Abuse Patient Records regulations: The Federal rules restrict any use of the information to criminally investigate or prosecute any alcohol or drug abuse patient.[facility] HospitalIn the event this information is protected by the Federal Confidentiality of Alcohol and Drug Abuse Patient Records regulations: The Federal rules restrict any use of the information to criminally investigate or prosecute any alcohol or drug abuse patient.[facility] HospitalIn the event this information is protected by the Federal Confidentiality of Alcohol and Drug Abuse Patient Records regulations: The Federal rules restrict any use of the information to criminally investigate or prosecute any alcohol or drug abuse patient.[facility] HospitalIn the event this information is protected by the Federal Confidentiality of Alcohol and Drug Abuse Patient Records regulations: The Federal rules restrict any use of the information to criminally investigate or prosecute any alcohol or drug abuse patient.[facility] HospitalIn the event this information is protected by the Federal Confidentiality of Alcohol and Drug Abuse Patient Records regulations: The Federal rules restrict any use of the information to criminally investigate or prosecute any alcohol or drug abuse patient.[facility] HospitalIn the event this information is protected by the Federal Confidentiality of Alcohol and Drug Abuse Patient Records regulations: The Federal rules restrict any use of the information to criminally investigate or prosecute any alcohol or drug abuse patient.[facility] ClinicIn the event this information is protected by the Federal Confidentiality of Alcohol and Drug Abuse Patient Records regulations: The Federal rules restrict any use of the information to criminally investigate or prosecute any alcohol or drug abuse patient.[facility] HospitalIn the event this information is protected by the Federal Confidentiality of Alcohol and Drug Abuse Patient Records regulations: The Federal rules restrict any use of the information to criminally investigate or prosecute any alcohol or drug abuse patient.[facility] HospitalIn the event this information is protected by the Federal Confidentiality of Alcohol and Drug Abuse Patient Records regulations: The Federal rules restrict any use of the information to criminally investigate or prosecute any alcohol or drug abuse patient.[facility] HospitalIn the event this information is protected by the Federal Confidentiality of Alcohol and Drug Abuse Patient Records regulations: The Federal rules restrict any use of the information to criminally investigate or prosecute any alcohol or drug abuse patient.[facility] HospitalIn the event this information is protected by the Federal Confidentiality of Alcohol and Drug Abuse Patient Records regulations: The Federal rules restrict any use of the information to criminally investigate or prosecute any alcohol or drug abuse patient.[facility] HospitalIn the event this information is protected by the Federal Confidentiality of Alcohol and Drug Abuse Patient Records regulations: The Federal rules restrict any use of the information to criminally investigate or prosecute any alcohol or drug abuse patient.[facility] HospitalIn the event this information is protected by the Federal Confidentiality of Alcohol and Drug Abuse Patient Records regulations: The Federal rules restrict any use of the information to criminally investigate or prosecute any alcohol or drug abuse patient.[facility] HospitalIn the event this information is protected by the Federal Confidentiality of Alcohol and Drug Abuse Patient Records regulations: The Federal rules restrict any use of the information to criminally investigate or prosecute any alcohol or drug abuse patient.[facility] HospitalIn the event this information is protected by the Federal Confidentiality of Alcohol and Drug Abuse Patient Records regulations: The Federal rules restrict any use of the information to criminally investigate or prosecute any alcohol or drug abuse patient.[facility] HospitalIn the event this information is protected by the Federal Confidentiality of Alcohol and Drug Abuse Patient Records regulations: The Federal rules restrict any use of the information to criminally investigate or prosecute any alcohol or drug abuse patient.[facility] HospitalIn the event this information is protected by the Federal Confidentiality of Alcohol and Drug Abuse Patient Records regulations: The Federal rules restrict any use of the information to criminally investigate or prosecute any alcohol or drug abuse patient.[facility] HospitalIn the event this information is protected by the Federal Confidentiality of Alcohol and Drug Abuse Patient Records regulations: The Federal rules restrict any use of the information to criminally investigate or prosecute any alcohol or drug abuse patient.[facility] HospitalIn the event this information is protected by the Federal Confidentiality of Alcohol and Drug Abuse Patient Records regulations: The Federal rules restrict any use of the information to criminally investigate or prosecute any alcohol or drug abuse patient.[facility] HospitalIn the event this information is protected by the Federal Confidentiality of Alcohol and Drug Abuse Patient Records regulations: The Federal rules restrict any use of the information to criminally investigate or prosecute any alcohol or drug abuse patient.[facility] HospitalIn the event this information is protected by the Federal Confidentiality of Alcohol and Drug Abuse Patient Records regulations: The Federal rules restrict any use of the information to criminally investigate or prosecute any alcohol or drug abuse patient.[facility] HospitalIn the event this information is protected by the Federal Confidentiality of Alcohol and Drug Abuse Patient Records regulations: The Federal rules restrict any use of the information to criminally investigate or prosecute any alcohol or drug abuse patient.[facility] HospitalIn the event this information is protected by the Federal Confidentiality of Alcohol and Drug Abuse Patient Records regulations: The Federal rules restrict any use of the information to criminally investigate or prosecute any alcohol or drug abuse patient.[facility] HospitalIn the event this information is protected by the Federal Confidentiality of Alcohol and Drug Abuse Patient Records regulations: The Federal rules restrict any use of the information to criminally investigate or prosecute any alcohol or drug abuse patient.[facility] HospitalIn the event this information is protected by the Federal Confidentiality of Alcohol and Drug Abuse Patient Records regulations: The Federal rules restrict any use of the information to criminally investigate or prosecute any alcohol or drug abuse patient.[facility] HospitalIn the event this information is protected by the Federal Confidentiality of Alcohol and Drug Abuse Patient Records regulations: The Federal rules restrict any use of the information to criminally investigate or prosecute any alcohol or drug abuse patient.[facility] HospitalIn the event this information is protected by the Federal Confidentiality of Alcohol and Drug Abuse Patient Records regulations: The Federal rules restrict any use of the information to criminally investigate or prosecute any alcohol or drug abuse patient.[facility] HospitalIn the event this information is protected by the Federal Confidentiality of Alcohol and Drug Abuse Patient Records regulations: The Federal rules restrict any use of the information to criminally investigate or prosecute any alcohol or drug abuse patient.[facility] HospitalIn the event this information is protected by the Federal Confidentiality of Alcohol and Drug Abuse Patient Records regulations: The Federal rules restrict any use of the information to criminally investigate or prosecute any alcohol or drug abuse patient.[facility] HospitalIn the event this information is protected by the Federal Confidentiality of Alcohol and Drug Abuse Patient Records regulations: The Federal rules restrict any use of the information to criminally investigate or prosecute any alcohol or drug abuse patient.[facility] HospitalIn the event this information is protected by the Federal Confidentiality of Alcohol and Drug Abuse Patient Records regulations: The Federal rules restrict any use of the information to criminally investigate or prosecute any alcohol or drug abuse patient.[facility] HospitalIn the event this information is protected by the Federal Confidentiality of Alcohol and Drug Abuse Patient Records regulations: The Federal rules restrict any use of the information to criminally investigate or prosecute any alcohol or drug abuse patient.[facility] HospitalIn the event this information is protected by the Federal Confidentiality of Alcohol and Drug Abuse Patient Records regulations: The Federal rules restrict any use of the information to criminally investigate or prosecute any alcohol or drug abuse patient.[facility] Reason for Visit (unrecogniz ed section and content) Reason Comments Results Specialty Diagnoses / Procedures Referred By Priyaac t Referred To Contact Orthopedics Diagnoses Thumb pain, right Procedures CONSULT TO ORTHOPAEDICS OFFICE/OUTPATIENT [facility] 60-74 MINUTES Grace Ro, SAFE DEPOSIT BOX RENTAL CLERK.COMBER TENDER [address] [place] [address] [place] [address] Referral ID Status Reason Start Date Expiration Date V isits Requested Visits Authorized [id number] Closed PCP Requested Referral 09/25/2021 06/06/2022 2 2 Reason Comments Orders Reason Comments Pain Specialty Diagnoses / Procedures Referred By Priyaac t Referred To Contact Orthopedics Diagnoses Thumb pain, right Procedures CONSULT TO ORTHOPAEDICS OFFICE/OUTPATIENT [facility] 60-74 MINUTES Grace Ro, SAFE DEPOSIT BOX RENTAL CLERK.COMBER TENDER [address] [place] [address] [place] [address] Reason Comments Reschedule surgery Reason Comments Anesthesia Consult Reason Comments Appointment Reason Comments OT EVAL Specialty Diagnoses / Procedures Referred By Naresh t Referred To Contact [facility] Diagnoses Primary osteoarthritis of first carpometacarpal joint of right hand Procedures CONSULT TO APPEALS MANAGER OCCUPATIONAL THERAPY EVAL HIGH COMPLEX 60 MINS Juli Teran PA-C [address] [place] [address] [facility] [place] [address] [place] [address] Referral ID Status Reason Start Date Expiration Date Visits Requested Visits Authorized [id number] Authorized Auto-Generat ed Referral 06/23/2022 06/06/2023 20 20 Reason Comments Established Patient Post Op Specialty Diagnoses / Procedures Referred By Naresh t Referred To Contact Orthopedics / ORTHOPAEDIC SURGERY Diagnoses Post op right thumb CMC arthroplasty Procedures POST OP Galo Warren MD [address] [address] Galo Warren MD [address] [facility] [address] Referral ID Status Reason Start Date Expiration Date Visits Re quested Visits Authorized [id number] Closed 06/07/2022 06/06/2023 1 1 Reason Comments Occupational Therapy Specialty Diagnoses / Procedures Referred By Naresh t Referred To Contact [facility] Diagnoses Primary osteoarthritis of first carpometacarpal joint of right hand Procedures CONSULT TO APPEALS MANAGER OCCUPATIONAL THERAPY EVAL HIGH COMPLEX 60 MINS Juli Teran PA-C [address] [place] [address] [facility] [place] [address] [place] [address] Reason Comments Post Op 4 weeks 5 days post op Right thumb CMC arthroplasty with tr and 1st dorsal compartment release Specialty Diagnoses / Procedures Referred By Naresh garza Referred To Contact Orthopedics / ORTHOPAEDIC SURGERY Diagnoses H/O arthroplasty Post op right thumb CMC arthroplasty Procedures OFFICE/OUTPATIENT ESTABLISHED MOD MDM 30-39 MIN POST OP Galo Warren MD [address] [address] Juli Teran PA-C [address] [place] [address] Referral ID Status Reason Start Date Expiration Date Visits Re quested Visits Authorized [id number] Closed 07/14/2022 06/06/2023 1 1 Specialty Diagnoses / Procedures Referred By Naresh garza Referred To Contact XR IMAGING Diagnoses Primary osteoarthritis of first carpometacarpal joint of right hand Procedures XR HAND GENERAL 3V PA/LAT/OBL RIGHT RADEX HAND MINIMUM 3 VIEWS Galo Warren MD [address] [facility] [address] [place] [id number] Referral ID Status Reason Start Date Expiration Date V isits Requested Visits Authorized [id number] Closed Auto-Generate d Referral 07/13/2022 06/06/2023 1 1 Reason Comments Endocrinology update Reason Comments Thyroid Problem TSH and TPO abnormal labs Specialty Diagnoses / Procedures Referred By Naresh t Referred To Contact Endocrinology Diagnoses Abnormal thyroid blood test Procedures CONSULT TO ENDOCRINOLOGY OFFICE/OUTPATIENT NEW HIGH MDM 60 MINUTES Haylee Watson APRN.COMBER TENDER [address] [place] [address] Referral ID Status Reason Start Date Expiration Date V isits Requested Visits Authorized [id number] Closed PCP Requested Referral 07/16/2023 07/15/2024 1 [...] Care Teams (unrecognized sec tion and content) Test Clerk Relationship Specialty Start Date End Date Grace Ro, SAFE DEPOSIT BOX RENTAL CLERK.COMBER TENDER [address] [place] [address] PCP - General Family Practice 09/17/21 Test Clerk Relationship Specialty Start Date End Date Grace Ro, SAFE DEPOSIT BOX RENTAL CLERK.COMBER TENDER [address] [place] [address] PCP - General Family Medicine 09/17/21 Test Clerk Relationship Specialty Start Date End Date Grace Ro, SAFE DEPOSIT BOX RENTAL CLERK.COMBER TENDER [address] [place] [address] PCP - General Family Medicine 09/17/21 Test Clerk Relationship Specialty Start Date End Date Grace Ro, SAFE DEPOSIT BOX RENTAL CLERK.COMBER TENDER [address] [place] [address] PCP - General Family Medicine 09/17/21 Test Clerk Relationship Specialty Start Date End Date Grace Ro, SAFE DEPOSIT BOX RENTAL CLERK.COMBER TENDER [address] [place] [address] PCP - General Family Medicine 09/17/21 Test Clerk Relationship Specialty Start Date End Date Grace Ro, SAFE DEPOSIT BOX RENTAL CLERK.COMBER TENDER [address] [place] [address] PCP - General Family Medicine 09/17/21 Test Clerk Relationship Specialty Start Date End Date Grace Ro, SAFE DEPOSIT BOX RENTAL CLERK.COMBER TENDER [address] [facility] [place] [address] PCP - General Family Medicine 09/17/21 Test Clerk Relationship Specialty Start Date End Date Grace Ro, SAFE DEPOSIT BOX RENTAL CLERK.COMBER TENDER [address] [facility] [place] [address] PCP - General Family Medicine 09/17/21 Test Clerk Relationship Specialty Start Date End Date Grace Ro, SAFE DEPOSIT BOX RENTAL CLERK.COMBER TENDER [address] [facility] [place] [address] PCP - General Family Medicine 09/17/21 Test Clerk Relationship Specialty Start Date End Date Grace Ro, SAFE DEPOSIT BOX RENTAL CLERK.COMBER TENDER [address] [facility] [place] [address] PCP - General Family Medicine 09/17/21 Test Clerk Relationship Specialty Start Date End Date Grace Ro, SAFE DEPOSIT BOX RENTAL CLERK.COMBER TENDER [address] [facility] [place] [address] PCP - General Family Medicine 09/17/21 Test Clerk Relationship Specialty Start Date End Date Grace Ro, SAFE DEPOSIT BOX RENTAL CLERK.COMBER TENDER [address] [facility] [place] [address] PCP - General Family Medicine 09/17/21 Test Clerk Relationship Specialty Start Date End Date Grace Ro, SAFE DEPOSIT BOX RENTAL CLERK.COMBER TENDER [address] [facility] [place] [address] PCP - General Family Medicine 09/17/21 Test Clerk Relationship Specialty Start Date End Date Grace Ro, SAFE DEPOSIT BOX RENTAL CLERK.COMBER TENDER [address] [facility] [place] [address] PCP - General Family Medicine 09/17/21 Test Clerk Relationship Specialty Start Date End Date Grace Ro, SAFE DEPOSIT BOX RENTAL CLERK.COMBER TENDER [address] [facility] [place] [address] PCP - General Family Medicine 09/17/21 Test Clerk Relationship Specialty Start Date End Date Grace Ro, SAFE DEPOSIT BOX RENTAL CLERK.COMBER TENDER [address] [facility] [place] [address] PCP - General Family Medicine 09/17/21 Test Clerk Relationship Specialty Start Date End Date Grace Ro, SAFE DEPOSIT BOX RENTAL CLERK.COMBER TENDER [address] [facility] [place] [address] PCP - General Family Medicine 09/17/21 Nadya Mclean, SAFE DEPOSIT BOX RENTAL CLERK.COMBER TENDER [address] [place] [address] Reception Specialist Family Medicine 05/14/24 Chai Rico MD [address] [place] [address] Reception Specialist Family Medicine 05/14/24 Test Clerk Relationship Specialty Start Date End Date Grace Ro, SAFE DEPOSIT BOX RENTAL CLERK.COMBER TENDER [address] [facility] [place] [address] PCP - General Family Medicine 09/17/21 Nadya Mclean SAFE DEPOSIT BOX RENTAL CLERK.COMBER TENDER [address] [place] [address] Reception Specialist Family Medicine 05/14/24 Chai Rico MD [address] [place] [address] Reception Specialist Family Medicine 05/14/24 Test Clerk Relationship Specialty Start Date End Date Grace Ro, SAFE DEPOSIT BOX RENTAL CLERK.COMBER TENDER [address] [facility] [place] [address] PCP - General [facility] Medicine 09/17/21 Nadya Mclean APRN.COMBER TENDER [address] [facility], [place] [address] [facility]24 Chai Rico MD [address] [facility], [place] [address] [facility] 05/14/24 Test Clerk Relationship Specialty Start Date End Date Grace Ro APRN.COMBER TENDER [address] [facility] [place] [address] PCP - General [facility] Medicine 09/17/21 Nadya Mclean SAFE DEPOSIT BOX RENTAL CLERK.COMBER TENDER [address] [place] [address] [facility] 05/14/24 Chai Rico MD [address] [place] [address] [facility] 05/14/24 Team Status: Active Member Role Status Dates Grace Ro MEDIA ANALYST, MEDIA ANALYST-C Primary Care Provider Active Team Status: Inactive Member Role Status Dates Grace Ro MEDIA ANALYST, MEDIA ANALYST-C Primary Care Provider Active Start: August 07, 2024 End: August 07, 2024 ZEB Angel Attending Provider Active Start: August 07, 2024 End: August 07, 2024 ZEB Angel Referring Provider Active Start: August 07, 2024 End: August 07, 2024 Test Clerk Relationship Specialty Start Date End Date Grace Ro, SAFE DEPOSIT BOX RENTAL CLERK.COMBER TENDER [address] [facility] [place] [address] PCP - General Family Medicine 09/17/21 INFORMATION SOURCE (unrecogn ized section and content) DATE CREATED AUTHOR 02/18/2023 [facility] DATE CREATED AUTHOR AUTHOR'S ORGANIZ ATION 08/09/2024 [facility] DATE CREATED AUTHOR AUTHOR'S ORGANIZ ATION 03/27/2025 [facility] FOR RECORDS PERTAINING TO PATIENTS WHO ARE [...] BE BASED ON THE PRIMARY CLINICAL RECORDS. [facility]. provides no warranty or guarantee of the accuracy or completeness of information in this document.
== END | disposition home or self-care (01) ==
LOC: CT 12:17
PROVIDERS: PCP Registered Nurse
DX: S42.211A Unspecified displaced fracture of surgical neck of right humerus, initial encounter for closed fracture (principal)
CPT/HCPCS: 73200